=== PATIENT | female | born 1965 | race Hispanic/Latino ===

== ENCOUNTER 2023-01-19 05:01 | Observation (INO) | payer BC ==
[2023-01-14 12:45] LABS: ALBUMIN 4.2 g/dL (3.5-5.0); BILIRUBIN,TOTAL 1.1 mg/dL (0.2-1.0); CREATININE 0.5 mg/dL (0.5-1.5); POTASSIUM 3.2 mmol/L (3.5-5.1); TOTAL PROTEIN, SERUM 8.3 g/dL (6.0-8.3)
[2023-01-14 14:48] VITALS: BP 134/77; PULSE 76; RESP 18
[2023-01-19] VITALS (28 sets, daily range): BP systolic 108–127; BP diastolic 62–79; PULSE 61–93; RESP 14–19; O2SAT 96–97
[~2023-01-19] VITALS: Ht 160 cm; Wt 72.1 kg
[~2023-01-19 05:01] MED LIST: NAPR220T57 PO
[2023-01-19] MEDS ORDERED: 0.9%NACL 100ML 48.45 ML, ROPIVACAINE 0.5% 5MG/ML 30ML 246.25 MG, KETOROLAC TROMETHAMINE... IV PRN ×5 (07:00)
[2023-01-19] MEDS ORDERED: CEFAZOLIN SODIUM 2 GM VIAL ONE ×2 (07:20→19:44)
[2023-01-19] MEDS ORDERED: LACTATED RINGERS 1000ML 1,000 ML IV ONE (07:20)
[2023-01-19] MEDS ORDERED: POTA99TA26 PO (07:27)
[2023-01-19] MEDS ORDERED: TRANEXAMIC ACID 1000MG/10ML ONE (12:37)
[2023-01-19] MEDS ORDERED: GENTAMICIN SULFATE 80 MG/2 ML VIAL ONE (12:37)
[2023-01-19] MEDS ORDERED: CEFAZOLIN SODIUM 1 GM VIAL ONE (12:37)
[2023-01-19] MEDS ORDERED: LIDOCAINE PF 100MG/5ML (2%) SYRINGE 5ML ONE (12:51)
[2023-01-19] MEDS ORDERED: PROPOFOL 10 MG/ML 20ML VIAL IV ONE (12:52)
[2023-01-19] MEDS ORDERED: ROCURONIUM 10MG/1ML SYR 10 MG/ML ML ONE (12:52)
[2023-01-19] MEDS ORDERED: MIDAZOLAM HCL 1 MG/ML 2ML VIAL ONE (12:52)
[2023-01-19] MEDS ORDERED: FENTANYL CITRATE PF 50 MCG/1 ML 5ML AMP IV ONE (12:52)
[2023-01-19] MEDS ORDERED: DEXAMETHASONE SOD PHOSPHATE 10MG/ML 1ML VIAL ONE (13:21)
[2023-01-19] MEDS ORDERED: ONDANSETRON 4MG INJ ONE ×2 (13:21→16:03)
[2023-01-19] MEDS ORDERED: TRANEXAMIC ACID 1000MG/10ML IV ONE (13:35)
[2023-01-19] MEDS ORDERED: GLYCOPYRROLATE 1 MG/5 ML SYRINGE ONE (14:34)
[2023-01-19] MEDS ORDERED: NEOSTIGMINE METHYLSULFATE 1MG/ML IV ONE (14:34)
[2023-01-19] MEDS ORDERED: MEPERIDINE-PF 25 MG/ML SYG ONE (16:03)
[2023-01-19] MEDS ORDERED: CEFAZOLIN SODIUM 2 GM VIAL IVPB SCH (17:00)
[2023-01-19] MEDS ORDERED: DIPHENOXYLATE HCL/ATROPINE 2.5/0.025 MG TAB PO PRN (17:00)
[2023-01-19] MEDS ORDERED: HYDROMORPHONE PCA 10 MG/50 ML 50 ML IV PRN (17:00)
[2023-01-19] MEDS ORDERED: ACETAMINOPHEN 325 MG TAB PO PRN ×3 (17:00)
[2023-01-19] MEDS ORDERED: LACTULOSE 20 GM/30 ML UDCUP PO PRN (17:00)
[2023-01-19] MEDS ORDERED: ONDANSETRON 4MG INJ IVP PRN (17:00)
[2023-01-19] MEDS ORDERED: DiphenhydrAMINE HCL 50 MG/ML VIAL IM PRN (17:00)
[2023-01-19] MEDS ORDERED: BENZOCAINE/MENTH/CETYLPYRD CL 1 EACH LOZENGE MM PRN (17:00)
[2023-01-19] MEDS ORDERED: TRAMADOL HCL 50 MG TABLET PO PRN (17:00)
[2023-01-19] MEDS ORDERED: MAG/ALUM/SIMETH 30 ML UDCUP PO PRN (17:00)
[2023-01-19] MEDS ORDERED: DIPHENHYDRAMINE HCL 25 MG CAPSULE PO PRN ×2 (17:00)
[2023-01-19] MEDS: 0.9%NACL 1000ML 1,000 ML IV SCH (17:29)
[2023-01-19] MEDS: CEFAZOLIN SODIUM 2 GM VIAL IVPB SCH (19:50)
[2023-01-20] MEDS: CEFAZOLIN SODIUM 2 GM VIAL IVPB SCH (02:21)
[2023-01-20] MEDS: 0.9%NACL 1000ML 1,000 ML IV SCH ×2 (02:21→13:00)
[2023-01-20 03:00] VITALS: BP 103/67; PULSE 66; RESP 16
[2023-01-20 04:18] LABS: HEMATOCRIT 25.8 % (36-48); MEAN CORPUSCULAR HEMOGLOBIN 39.5 pg (27.0-33.0); MEAN CORPUSCULAR HGB CONC 39.9 g/dL (32.0-36.0); MEAN CORPUSCULAR VOLUME 98.9 fL (79-99); PLATELET COUNT (AUTO) 185 K/uL (130-400); RED BLOOD CELL COUNT(AUTO) 2.61 MIL/uL (4.00-5.50); WHITE BLOOD COUNT (AUTO) 7.8 K/uL (4.8-10.8)
[2023-01-20 04:22] LABS: CREATININE 0.7 mg/dL (0.5-1.5); POTASSIUM 3.5 mmol/L (3.5-5.1)
[2023-01-20 04:27] LABS: INR 0.97 (0.85-1.15); PROTHROMBIN TIME 11.3 SEC (9.6-11.6)
[2023-01-20 06:24] VITALS: PULSE 76; RESP 18; O2SAT 96
[2023-01-20 08:00] VITALS: BP 113/67; PULSE 79; RESP 18; O2SAT 94
[2023-01-20] MEDS ORDERED: POTASSIUM CHLORIDE 20MEQ/100ML 100 ML IV PRN (09:00)
[2023-01-20] MEDS ORDERED: POTASSIUM CHLORIDE 10% ELIXIR 20 MEQ/15 ML UDCUP PO PRN (09:00)
[2023-01-20] MEDS ORDERED: KCL 20 MEQ ERTAB PO PRN (09:00)
[2023-01-20] MEDS ORDERED: RIVAROXABAN 10 MG TABLET PO SCH (09:00)
[2023-01-20] MEDS ORDERED: KCL 20 MEQ ERTAB PO ONE (09:00)
[2023-01-20 12:00] VITALS: BP 115/55; PULSE 80; RESP 20
== END 2023-01-20 15:30 | disposition home or self-care (01) ==
LOC: DAH 05:01 → DAHIP 05:02 → DAH 05:02 → 4CH 16:30
PROVIDERS: ADMIT Orthopaedic Surgery; ATTEND Orthopaedic Surgery
DX: M17.12 Unilateral primary osteoarthritis, left knee (principal); E11.9 Type 2 diabetes mellitus without complications; I10 Essential (primary) hypertension; Z98.51 Tubal ligation status
CPT/HCPCS: 80053; 36415 ×2; 87641; 27447; 96365; 96366 ×4; 96368; 82948; 81025; 97161; 97012; 97530 ×3; 80048; 85027; 85610; 97116 ×2; G0378 ×21; A4510; A4663; J7120 ×2; A4215 ×2; A4649 ×4; J3010; J0690 ×4; J3490 ×3; J1170; J1100; J2001; J1580; J2250; J2704; J2405 ×2; J2710; J2175; A6223; C1763 ×2; C1776; A5120; A4223; A4222; A4221; A6450; J7030

== ENCOUNTER 2024-08-29 18:03 | Emergency (ER) | payer BC ==
[~2024-08-29] VITALS: Ht 160 cm; Wt 61.7 kg
[~2024-08-29 18:03] MED LIST changes: -NAPR220T57 PO; +POTA99TA26 PO
--- NOTE | 2024-08-29 18:23 | ERN ---
ED Note History of Present Illness Stated Complaint: CHEST PAIN AND ARM PAIN ON LEFT SIDE/ DR MACEDO Chief Complaint: Chest Wall Pain Time Seen by MD: 18:22 Time Seen by Midlevel: 18:24 Dictation: Ms. Lamar is a 58-year-old female with history of hypothyroidism pain presented to the emergency department this evening for evaluation of chest pain. She reports chest pain/pressure radiating to the left arm/ribs x 48 hours. She also is complaining of fatigue, general weakness, congestion, cough, and sore throat. Chest pain persisted and was instructed by her PCP to come to the hospital. 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 She Denies fever, chills, shortness of breath, palpitations, edema, abdominal pain, nausea, vomiting, hematemesis, constipation, diarrhea, melena, hematochezia, dysuria, headache, dizziness, or focal weakness/paresthesia. PCP: [facility] Allergies: Coded Allergies: meloxicam (Unverified Allergy, Unknown, 08/29/24) omeprazole (Unverified Allergy, Unknown, 08/29/24) Emergency Care FINANCIAL AID DIRECTOR: None Home Meds Active Scripts Benzonatate (Tessalon Perles) 100 Mg Cap, 1 CAP PO TID for cough, #12 CAP 0 Refills Prov:CARLOS DUKES NP 08/29/24 Potassium Chloride (Potassium Chloride) 20 Meq Tab.er.prt, 1 TAB PO BID for 3 Days, #6 TAB 0 Refills Prov:CARLOS DUKES NP 08/29/24 Nirmatrelvir/Ritonavir (Paxlovid 300-100 mg Dose Pack) 300 Mg (150 Mg X 2)-100 Mg Tab.ds.pk, 1 EACH PO DAILY for 5 Days, #5 TAB 0 Refills Prov:CARLOS DUKES NP 08/29/24 Reported Medications Potassium Gluconate (Potassium) 595 Mg (99 Mg) Tablet, 99 MG PO DAILY, TAB 01/19/23 Past Medical History Past Medical History: Hypothyroid Surgical History: Other, BTL Surgical History Other: KNEE Social History: Negative, Lives with family History: Not Applicable RN Note Reviewed/Agreed w/PFSH: Yes Review of System Dictation REVIEW OF SYSTEMS: CONSTITUTIONAL: Patient denies fevers, chills, sweats and weight changes. Reports fatigue and general weakness. EYES: Patient denies any visual symptoms. EARS, NOSE, AND THROAT: No difficulties with hearing. Reports nasal congestion and sore throat. CARDIOVASCULAR: Patient denies palpitations, orthopnea and paroxysmal nocturnal dyspnea. Reports 48 hours of left sided chest pain/pressure radiating to left arm/ribs. RESPIRATORY: No dyspnea on exertion, no wheezing. Reports congested cough. GI: No nausea, vomiting, diarrhea, constipation, abdominal pain, hematochezia or melena. : No urinary hesitancy or dribbling. No nocturia or urinary frequency. No abnormal urethral discharge. MUSCULOSKELETAL: No myalgias or arthralgias. NEUROLOGIC: No chronic headaches, no seizures. Patient denies numbness, tingling or weakness. PSYCHIATRIC: Patient denies problems with mood disturbance. No problems with anxiety. ENDOCRINE: No excessive urination or excessive thirst. DERMATOLOGIC: Patient denies any rashes or skin changes. Initial Vital Sign VS Vital Signs Date Time Temp Pulse Resp B/P (MAP) Pulse Ox O2 Delivery O2 Flow Rate FiO2 08/29/24 18:17 98.2 79 16 129/81 96 Room Air 0 08/29/24 19:23 21 Physical Exam Dictation Vital signs: Reviewed. Afebrile Constitutional: No acute distress. Non-toxic appearing. Head/Face: Normocephalic, atraumatic. Eyes: Periorbital areas with no swelling, redness, or edema. Lids and lashes are normal. Conjunctival injection is absent. Sclera anicteric. Pupils equal, round, reactive to light. ENT: Pinnas intact and no signs of trauma or erythema. Ear canals clear and no discharge. TMs no erythema. No nasal discharge or bleeding noted. Oropharynx with no exudate, redness, swelling, masses, exudates, or evidence of obstruction. Uvula midline. Mucous membranes moist. Neck: Trachea midline, no masses palpated, and no cervical lymphadenopathy. No swelling. Supple, full range of motion. Chest/Axilla: No tenderness, no crepitus, no paradoxical movement, no re tractions. Cardiovascular: Regular rate, regular rhythm, no murmur, no gallops. Symmetric pulses. No peripheral edema. Twelve lead EKG reflects a sinus rhythm without ST elevation or depression. Normotensive. Respiratory: Respirations even and unlabored. Lung sounds clear; no wheezes, rales or rhonchi. Room air SpO2 98%. Gastrointestinal: Inspection is normal. No distention is appreciated. Bowel sounds are normal. No mass or organomegaly . There is no tenderness. No rebound. No rigidity. No voluntary or involuntary guarding. No Ray's sign. Neurological: Normal speech, gross motor function intact, gross sensory function intact. No focal weakness/Paresthesia. Musculoskeletal/Extremities: All extremities have full range of motion, no pain or tenderness on palpation. Symmetric pulses. Integumentary: Intact. Skin is normal color, warm and dry. Cap refill less than 2 seconds. Results (Laboratory/Radiology) Laboratory/Radiology Laboratory Tests Test 08/29/24 18:50 08/29/24 19:14 White Blood Count 4.0 K/uL (4.8-10.8) L Red Blood Count 4.45 MIL/uL (4.00-5.50) Hemoglobin 12.5 g/dL (12.0-16.0) Hematocrit 37.0 % (36-48) Mean Corpuscular Volume 83.1 fL (79-99) Mean Corpuscular Hemoglobin 28.1 pg (27.0-33.0) Mean Corpuscular Hemoglobin Concent 33.8 g/dL (32.0-36.0) Red Cell Distribution Width 13.9 % (11.0-15.5) Platelet Count 169 K/uL (130-400) Mean Platelet Volume 9.4 fL (7.5-10.5) Immature Granulocyte % (Auto) 0.5 % (0-1) Neutrophils (%) (Auto) 58.8 % (40.0-77.0) Lymphocytes (%) (Auto) 28.0 % (21.0-51.0) Monocytes (%) (Auto) 11.4 % (3.0-13.0) Eosinophils (%) (Auto) 0.8 % (0.0-8.0) Basophils (%) (Auto) 0.5 % (0.0-5.0) Neutrophils # (Auto) 2.3 K/uL (1.8-7.7) Lymphocytes # (Auto) 1.1 K/uL (1.0-4.8) Monocytes # (Auto) 0.5 K/uL (0.1-1.0) Eosinophils # (Auto) 0.03 K/uL (0.00-0.70) Basophils # (Auto) 0.02 K/uL (0.00-0.20) Absolute Immature Granulocyte (auto 0.02 K/uL (0-1) Nucleated Red Blood Cells 0.0 % (0.0-0.19) Sodium Level 141 mmol/L (136-145) Potassium Level 2.3 mmol/L (3.5-5.1) *L Chloride Level 102 mmol/L (101-111) Carbon Dioxide Level 32 mmol/L (21-32) Blood Urea Nitrogen 10 mg/dL (7-18) Creatinine 0.5 mg/dL (0.5-1.0) Glomerular Filtration Rate Calc 107 mL/min (>90) Random Glucose 92 mg/dL (70-105) Total Calcium 9.1 mg/dL (8.5-10.1) Troponin I High Sensitivity 8 ng/L (4-50) Influenza Type A Antigen Negative For Type A Influenza Type B Antigen Negative For Type B SARS-CoV-2, RNA, NAAT POSITIVE SARS CoV-2 Group A Streptococcus Rapid negative (NEGATIVE) Labs Reviewed?: Yes EKG Comment: EKG Interpretation: Time Reviewed: 1903 Ventricular rate: 72 bpm IA Interval: 159 ms QRS duration: [address] segment elevation or depression. Clinical impression: sinus rhythm EKG Reviewed and interpreted by Dr. Tammy Hardwick X-RAY Comment: PATIENT: ENRIQUE LAMAR MR#: [id number] : 1965 SEX: F AGE: 58 LOCATION: [facility] ORDER 23 STATUS: [facility] REPORT#: [id number] SERVICE 22 REASON: chest pain, cough ORDERING PHYSICIAN: CARLOS DUKES NP PROCEDURE: CXR1VW - CHEST 1VW PORTABLE CHEST RADIOGRAPH INDICATION: chest pain, cough COMPARISON: None FINDINGS: Heart size is normal. The pulmonary vascularity and meseret appear normal. No abnormal pulmonary parenchymal opacity or consolidation identified. Right hemidiaphragm is slightly elevated. No significant pleural effusion noted. No pneumothorax detected. IMPRESSION: No radiographic evidence for any acute cardiopulmonary process. DICTATED BY: HUMAIRA VIRGEN MD DATE: 08/29/241854 ELECTRONICALLY SIGNED BY: HUMAIRA VIRGEN MD DATE: 08/29/241857 ED Course ED Course Orders Procedure Category Date Status Time Influenza Type A & B, LAB 08/29/24 Complete Rapid 18:23 Covid Rna Naat LAB 08/29/24 Complete 18:23 Troponin I High LAB 08/29/24 Complete Sensitivity 18:23 Chest 1vw RAD 08/29/24 Resulted 18:23 Rapid (Group A Strep) LAB 08/29/24 Complete 18:23 Cbc With Differential LAB 08/29/24 Complete 18:23 Basic Metabolic Panel LAB 08/29/24 Complete 18: 12 Lead Ekg Tracing- EKG 08/29/24 Complete Technical 18:29 Potassium Bicarb/Cit PHA 08/29/24 Complete Ac 25meq (K-Lyte Ta 19:30 Current Medications Medications (Trade) Dose Ordered Sig/Vinod Route PRN Reason Start Time Stop Time Status Last Admin Dose Admin Potassium Bicarbonate (K-Lyte Tablet Eff 25 Meq Tablet.eff) 50 meq ONCE ONCE PO 08/29/24 19:30 08/29/24 19:32 DC 08/29/24 19:59 Vital Signs Date Time Temp Pulse Resp B/P (MAP) Pulse Ox O2 Delivery O2 Flow Rate FiO2 08/29/24 20:15 98.2 73 17 121/71 98 Room Air* 0 21 08/29/24 19:23 98.1 78 18 123/78 97 Room Air* 0 21 08/29/24 18:17 98.2 79 16 129/81 96 Room Air 0 Uneventful ED course. Vital signs remained stable; afebrile and normotensive with room air SpO2 96-97%. She continues with occasional cough. Lung sounds are clear. Twelve lead EKG reflects a sinus rhythm without ST elevation or depression. Laboratory findings as noted below. K2.3. Troponin negative. Influenza and strep negative. COVID-19 positive. While in the ED she received dose KCl 50 mEq use. I discussed findings with patient and her significant other and recommended a admission for electrolyte replacement/observation. Patient declined admission stating she would rather rest at home with family. She states she will follow up with her PCP later this week as well as repeat electrolytes. HEART Score Response (Comments) Value History: Low suspicion (0) 0 EKG: Normal 0 Age: 45-65yrs (+1) 1 Risk Factors: 1-2 risk factors (+1) 1 Initial Troponin: Normal limit (0) 0 HEART Score Risk: Low Risk for MACE (1-3) Total 2 Medical Decision Making MDM MDM: Differential diagnosis: Influenza, COVID, ACS Rationale: Tests considered and ordered secondary to shared decision making include: LAB, EKG Previous outside records reviewed: Old ER visits. Risk of complication and/or morbidity or mortality of patient management: None Medications-Per medication reconciliation Need for hospitalization: Patient does not meet criteria for hospitalization. Need for emergency major/minor surgery: No There are no social concerns with this patient. Prescription drug management: KCL, Paxlovid, Tessalon Perles Prescriptions will include symptomatic care Patient's prior external medical records from other ER visits were reviewed by me as indicated. Prior testing and results from previous visits were reviewed. Prior tests were taken into account with medical decision making and resource utilization, independent historian/historians were used to obtain complete medical history. I independently interpreted the test that were performed, results were reviewed by me and considered findings on radiology if ordered. Medical management and examination interpretation discussions were had by me with other qualified healthcare professionals as indicated for the patient's care. DX & DISP Disposition: Discharge Departure Impression: Primary Impression: COVID-19 Additional Impressions: Hypokalemia, Cough Condition: Stable Scripts Benzonatate (Tessalon Perles) 100 Mg Cap 1 CAP PO TID for cough, #12 CAP 0 Refills Prov: CARLOS DUKES CASTING AGENT 08/29/24 Potassium Chloride (Potassium Chloride) 20 Meq Tab.er.prt 1 TAB PO BID for 3 Days, #6 TAB 0 Refills Prov: CARLOS DUKES CASTING AGENT 08/29/24 Nirmatrelvir/Ritonavir (Paxlovid 300-100 mg Dose Pack) 300 Mg (150 Mg X 2)-100 Mg Tab.ds.pk 1 EACH PO DAILY for 5 Days, #5 TAB 0 Refills Prov: CARLOS DUKES CASTING AGENT 08/29/24 Additional Instructions: Rest. You will need to isolate at home until you are fever free and symptoms are resolving. Drink plenty of fluids. Take [id number] Tylenol or ibuprofen as needed for discomfort. Continue with potassium supplementation twice daily for the next three days. May start Paxlovid dose pack. You will need to follow up with your PCP and have potassium level rechecked in the next 2-3 days. Return to the emergency department for any worsening of symptoms or concerns. Referrals: SELF,REFERRAL (PCP) Time of Disposition: 20:18 CARLOS DUKES NP Aug 29, 2024 18:23 GUSTAVO PHILLIPS DO Aug 30, 2024 00:00
--- NOTE | 2024-08-29 18:58 | HMCIMG ---
PORTABLE CHEST RADIOGRAPH INDICATION: chest pain, cough COMPARISON: None FINDINGS: Heart size is normal. The pulmonary vascularity and meseret appear normal. No abnormal pulmonary parenchymal opacity or consolidation identified. Right hemidiaphragm is slightly elevated. No significant pleural effusion noted. No pneumothorax detected. IMPRESSION: No radiographic evidence for any acute cardiopulmonary process.
[2024-08-29 19:06] LABS: BASOPHILS # (AUTO) 0.02 K/uL (0.00-0.20); BASOPHILS % (AUTO) 0.5 % (0.0-5.0); EOSINOPHILS # (AUTO) 0.03 K/uL (0.00-0.70); EOSINOPHILS % (AUTO) 0.8 % (0.0-8.0); IMMATURE GRANULOCYTE ABSOLUTE 0.02 K/uL (0-1); LYMPHOCYTES # (AUTO) 1.1 K/uL (1.0-4.8); MEAN CORPUSCULAR HEMOGLOBIN 28.1 pg (27.0-33.0); MEAN CORPUSCULAR HGB CONC 33.8 g/dL (32.0-36.0); MEAN CORPUSCULAR VOLUME 83.1 fL (79-99); MONOCYTES # (AUTO) 0.5 K/uL (0.1-1.0); MONOCYTES % (AUTO) 11.4 % (3.0-13.0); NEUTROPHILS # (AUTO) 2.3 K/uL (1.8-7.7); NEUTROPHILS % (AUTO) 58.8 % (40.0-77.0); PLATELET COUNT (AUTO) 169 K/uL (130-400); RED BLOOD CELL COUNT(AUTO) 4.45 MIL/uL (4.00-5.50); RED CELL DISTRIBUTION WIDTH 13.9 % (11.0-15.5)
--- NOTE | 2024-08-29 19:08 | EKG ---
[facility] Test Date: 2024-08-29 Test Time: 19:04:49 Pat Name: ENRIQUE NUÑEZ Department: ED Room: Gender: F Manager Work: [employer] : 1965 Requested By: CARLOS DUKES Order Number: [id number] Reading MD: Yamil Leija Measurements Intervals [place] Rate: 72 P: 57 MD: 159 QRS: -21 QRSD: 104 T: 48 QT: 441 QTc: 482 Interpretive Statements Sinus rhythm Nonspecific STT abnormality No previous ECG available for comparison Electronically Signed On 08-30-2024 18:11:13 CDT by Yamil Leija Please click the below link to view image of tracing.
[2024-08-29 19:18] LABS: CREATININE 0.5 mg/dL (0.5-1.0)
--- NOTE | 2024-08-29 19:18 | NUR ---
PT PLACED INTO ER 11 FROM LOBBY AT THIS TIME
[2024-08-29 19:20] LABS: POTASSIUM 2.3 mmol/L (3.5-5.1)
[2024-08-29] MEDS: PoTASSium BIcarbonate/CIT AC 25 MEQ TABLET.EFF PO ONE (19:59)
[2024-08-29 20:02] LABS: RAPID GROUP A STREP negative (NEGATIVE)
[2024-08-29 20:06] LABS: SARS-CoV-2, RNA, NAAT POSITIVE SARS CoV-2 (NEGATIVE)
[2024-08-29 20:11] LABS: INFLUENZA TYPE A Negative For Type A (NEGATIVE); INFLUENZA TYPE B Negative For Type B (NEGATIVE)
[2024-08-29 20:15] VITALS: BP 121/71; PULSE 73; RESP 17; TEMP 98.3; O2SAT 98
[2024-08-29] MEDS ORDERED: POTA-202 PO (20:17)
[2024-08-29] MEDS ORDERED: NIRM1TAB9 PO (20:17)
[2024-08-29] MEDS ORDERED: BENZ-39 PO (20:19)
== END 2024-08-29 20:37 | disposition home or self-care (01) ==
LOC: EDH 18:03
DX: U07.1 COVID-19 (principal); E87.6 Hypokalemia; R05.9 Cough, unspecified; E03.9 Hypothyroidism, unspecified; Z79.899 Other long term (current) drug therapy; Z88.8 Allergy status to other drugs, medicaments and biological substances; Z98.51 Tubal ligation status
CPT/HCPCS: 36415; 71045; 80048; 84484; 85025; 87635; 87804; 87880; 93005; 99284

== ENCOUNTER 2024-10-30 00:44 | Inpatient (IN) | payer BC ==
[~2024-10-30] VITALS: Ht 160 cm; Wt 61.7 kg
[2024-10-30] VITALS (13 sets, daily range): BP systolic 91–117; BP diastolic 55–71; PULSE 69–83; RESP 13–21; TEMP 97.8–99.8; O2SAT 96–100
[~2024-10-30 00:44] MED LIST changes: +BENZ-39 PO; +NIRM1TAB12 PO; +POTA-202 PO
--- NOTE | 2024-10-30 00:59 | ERN ---
ED Note History of Present Illness Stated Complaint: FEVER,CHILLS,COUGH,WEAK,DIZZY ONSET 1800 Chief Complaint: Sepsis Time Seen by MD: 00:49 Dictation: This is a 59-year-old female who presented to the emergency room complaining of fever chills all those that started around 6:00 p.m. today she also reports cough with chest congestion she has been feeling extremely weak with dizziness. No history of any recent travel or new pets at home. Patient was diagnosed with COVID August 2024 patient stated that for the past 1 year she has had profuse diarrhea with blood in the stool. She has had extensive GI evaluation including colonoscopies without any clear diagnosis or etiology known. She took Tylenol at 6:00 p.m.. Temperature 102 pulse 106 respirations 19 blood pressure 130/75 with a pulse oximetry of 100% on room air Her chronic medical problem includes hypothyroidism, chronic diarrhea, knee surgeries Allergies: Coded Allergies: meloxicam (Unverified Allergy, Unknown, 08/29/24) omeprazole (Unverified Allergy, Unknown, 08/29/24) Home Meds Active Scripts Benzonatate (Tessalon Perles) 100 Mg Cap, 1 CAP PO TID for cough, #12 CAP 0 Refills Prov:CARLOS DUKES NP 08/29/24 Potassium Chloride (Potassium Chloride) 20 Meq Tab.er.prt, 1 TAB PO BID for 3 Days, #6 TAB 0 Refills Prov:CARLOS DUKES [employer]ACHINE [employer] 08/29/24 Nirmatrelvir/Ritonavir (Paxlovid 300-100 mg Dose Pack) 300 Mg (150 Mg X 2)-100 Mg Tab.ds.pk, 1 EACH PO DAILY for 5 Days, #5 TAB 0 Refills Prov:CARLOS DUKES NP 08/29/24 Reported Medications Potassium Gluconate (Potassium) 595 Mg (99 Mg) Tablet, 99 MG PO DAILY, TAB 01/19/23 Past Medical History Past Medical History: Hypothyroid Surgical History: Other, BTL Surgical History Other: KNEE Family History: Negative Social History: Negative, Lives with family History: Not Applicable RN Note Reviewed/Agreed w/PFSH: Yes Review of System Dictation Constitutional: Positive for fever,chills, and weight loss Eyes: Negative for injury, pain,redness, and discharge ENT: Negative for injury,pain or swelling Cardiovascular: Negative for chest pain, palpitations, and edema Respiratory: Negative for shortness of breath, positive cough, and wheezing, Abdomen/GI: Negative for abdominal pain, nausea, vomiting, and constipation p ositive for chronic diarrhea, Back: Negative for injury and pain : Negative for injury, bleeding and discharge MS/Extremity: Negative for injury and deformity Skin: Negative for rash, and discoloration Neuro: Negative for headache, weakness, numbness, tingling, and seizure Psych: Negative for suicide ideation, homicidal ideation, and hallucinations Initial Vital Sign VS Vital Signs Date Time Temp Pulse Resp B/P (MAP) Pulse Ox O2 Delivery O2 Flow Rate FiO2 10/30/24 00:47 102.0 106 19 130/75 100 Room Air 0 10/30/24 00:55 21 Physical Exam Dictation General: awake, alert, NAD Head/Face: Normocephalic, atraumatic Eyes: PERRL, EOMI, vision at baseline ENT: oral cavity clear, TMs clear, no signs of infection Neck: Trachea midline, supple, no nuchal rigidity Cardiovascular: RRR, normal S1/S2, No MRGs, no JVD Respiratory: CTAB, no respiratory distress, No rales or wheezes Abdomen: Soft, non-tender, non-distended, normal bowel sounds, no guarding or rebound. Skin: Warm, dry, normal turgor, no rash MS/Extremity: Pulses equal, no cyanosis, neurovascular intact, FROM Neuro: COAx4, GCS 15, strength 5/5, CN 2-12 intact, normal cerebellar exam, Psych: Normal behavior, mood, and affect normal Extremities-trace edema without any palpable cords, Homans sign is negative Results (Laboratory/Radiology) Laboratory/Radiology Laboratory Tests Test 10/30/24 00:54 10/30/24 01:58 White Blood Count 8.2 K/uL (4.8-10.8) Red Blood Count 4.20 MIL/uL (4.00-5.50) Hemoglobin 12.1 g/dL (12.0-16.0) Hematocrit 35.5 % (36-48) L Mean Corpuscular Volume 84.5 fL (79-99) Mean Corpuscular Hemoglobin 28.8 pg (27.0-33.0) Mean Corpuscular Hemoglobin Concent 34.1 g/dL (32.0-36.0) Red Cell Distribution Width 14.5 % (11.0-15.5) Platelet Count 147 K/uL (130-400) Mean Platelet Volume 9.7 fL (7.5-10.5) Immature Granulocyte % (Auto) 0.2 % (0-1) Neutrophils (%) (Auto) 88.5 % (40.0-77.0) H Lymphocytes (%) (Auto) 3.8 % (21.0-51.0) L Monocytes (%) (Auto) 7.1 % (3.0-13.0) Eosinophils (%) (Auto) 0.0 % (0.0-8.0) Basophils (%) (Auto) 0.4 % (0.0-5.0) Neutrophils # (Auto) 7.2 K/uL (1.8-7.7) Lymphocytes # (Auto) 0.3 K/uL (1.0-4.8) L Monocytes # (Auto) 0.6 K/uL (0.1-1.0) Eosinophils # (Auto) 0.00 K/uL (0.00-0.70) Basophils # (Auto) 0.03 K/uL (0.00-0.20) Absolute Immature Granulocyte (auto 0.02 K/uL (0-1) Nucleated Red Blood Cells 0.0 % (0.0-0.19) White Cell Morphology Comment See comments Sodium Level 140 mmol/L (136-145) Potassium Level 1.9 mmol/L (3.5-5.1) *L Chloride Level 100 mmol/L (101-111) L Carbon Dioxide Level 27 mmol/L (21-32) Blood Urea Nitrogen 8 mg/dL (7-18) Creatinine 0.5 mg/dL (0.5-1.0) Glomerular Filtration Rate Calc 107 mL/min (>90) Random Glucose 105 mg/dL (70-105) Lactic Acid Level 2.1 mmol/L (0.8-2.5) Total Calcium 8.8 mg/dL (8.5-10.1) Total Creatine Kinase 261 U/L (21-232) H Influenza Type A Antigen Negative For Type A Influenza Type B Antigen Negative For Type B SARS-CoV-2 Antigen (Rapid) PRESUMPTIVE NEGATIVE Group A Streptococcus Rapid negative (NEGATIVE) Urine Color LIGHT-YELLOW (YELLOW) Urine Appearance CLEAR (CLEAR) Urine pH 5.0 (5.0-8.0) Urine Specific [place] 1.007 (1.001-1.031) Urine Protein NEGATIVE mg/dL (NEGATIVE) Urine Glucose (UA) NEGATIVE mg/dL (NEGATIVE) Urine Ketones NEGATIVE mg/dL (NEGATIVE) Urine Occult Blood NEGATIVE (NEGATIVE) Urine Nitrate NEGATIVE (NEGATIVE) Urine Bilirubin NEGATIVE mg/dL (NEGATIVE) Urine Urobilinogen 0.2 mg/dL (0.2-1.0) Urine Leukocyte Esterase 75 Uriel/uL (NEGATIVE) H Urine RBC 2-5 /HPF (0-1) H Urine WBC 11-25 /HPF (0-1) H Urine Squamous Epithelial Cells RARE /HPF (0-2) Urine Bacteria RARE /HPF (None Seen) Labs Reviewed?: Yes EKG Comment: Twelve lead EKG done on 10/30/2024 at 12:48 a.m. showed a heart rate of 103, MN interval 139, QRS 94 Impression normal sinus rhythm with nonspecific STT wave changes throughout noted. Q-waves in the septal leads. EKG rhythm strip shows normal sinus rhythm with nonspecific STT wave changes. Interpreted by ER MD Dr. Rubio ED Course ED Course Orders Procedure Category Date Status Time Cbc With Differential LAB 10/30/24 Complete 00:50 Urinalysis Profile LAB 10/30/24 Complete 00:50 Acetaminophen 325 Tab PHA 10/30/24 Complete (Tylenol 325mg Tab 01:00 Creatine Kinase, Total LAB 10/30/24 Complete 00:50 Chest 1vw RAD 10/30/24 Resulted 00:50 Basic Metabolic Panel LAB 10/30/24 Complete 00:50 Lactic Acid LAB 10/30/24 Complete 00:50 Influenza Type A & B, LAB 10/30/24 Complete Rapid 00:50 Rapid (Group A Strep) LAB 10/30/24 Complete 00:50 Covid19 (Sars Antigen LAB 10/30/24 Complete Rapid) 00:50 Blood Cult JAZMYNE 10/30/24 In Process 00:55 0.9%Nacl 1000ml (Ns PHA 10/30/24 Complete 1000ml) 01:00 12 Lead Ekg Tracing- EKG 10/30/24 Logged Technical 01:16 Potassium Chloride PHA 10/30/24 Complete 20meq/10ml (Kcl 20meq 02:00 Potassium Bicarb/Cit PHA 10/30/24 Complete Ac 25meq (K-Lyte Ta 02:00 Potassium Chloride PHA 10/30/24 In Process 10meq/100ml ([place] 02:00 Culture Urine JAZMYNE 10/30/24 In Process 02:18 Ct Abdomen/Pelvis CT 10/30/24 Logged W/Contrast 02:51 Stool Panel Gi By Pcr LAB 10/30/24 Logged 02:51 Fecal Wbc LAB 10/30/24 Logged (Lactoferrin) 02:51 Stool H. Pylori LAB 10/30/24 Logged Antigen 02:51 Ova And Parasite JAZMYNE 10/30/24 Logged 02:51 Occult Blood Stool LAB 10/30/24 Logged Single Only 02:51 Iohexol (Omnipaque) PHA 10/30/24 Complete 03:21 Zosyn 3.375gm+Ns 50ml PHA 10/30/24 In Process (Zosyn 3.375gm+Ns 04:00 Potassium LAB 10/30/24 Logged 03:31 Current Medications Medications (Trade) Dose Ordered Sig/Vinod Route PRN Reason Start Time Stop Time Status Last Admin Dose Admin Acetaminophen (TYLenol 325MG TAB) 650 mg ONCE ONCE PO 10/30/24 01:00 10/30/24 01:01 DC 10/30/24 00:58 Iohexol (Omnipaque) 75 ml STK-MED ONCE IV 10/30/24 03:21 10/30/24 03:21 DC Piperacillin Sod/ Tazobactam Sod (Zosyn 3.375gm+NS 50ml) 3.375 gm ONCE ONCE IV 10/30/24 04:00 10/30/24 04:01 Potassium Bicarbonate (K-Lyte Tablet Eff 25 Meq Tablet.eff) 50 meq ONCE ONCE PO 10/30/24 02:00 10/30/24 02:01 DC 10/30/24 01:58 Potassium Chloride 10 meq/ Sodium Chloride 50 ml @ 50 mls/hr PROTOCOL IV 10/30/24 02:00 10/30/24 01:55 DC Potassium Chloride 100 ml @ 100 mls/hr AD PRN IV POTASSIUM PROTOCOL 10/30/24 02:00 11/29/24 01:59 Sodium Chloride 1,000 ml @ 0 mls/hr ONCE ONCE IV 10/30/24 01:00 10/30/24 01:01 DC 10/30/24 01:02 Vital Signs Date Time Temp Pulse Resp B/P (MAP) Pulse Ox O2 Delivery O2 Flow Rate FiO2 10/30/24 03:33 86 16 94/60 95 Room Air* 0 10/30/24 02:12 100.6 98 23 107/61 95 Room Air* 0 10/30/24 00:58 102.0 10/30/24 00:55 102.0 106 22 123/74 94 Room Air* 0 10/30/24 00:47 102.0 106 19 130/75 100 Room Air 0 We will perform diagnostic labs, advanced imaging and administer medications according to the patient's complaint. Once the results are available, will review and personally interpreted the labs to rule out any acute life- threatening emergency the trach require immediate intervention and treatment. I will then re-evaluate the patient after treatment and diagnostic exams have return to determine whether the patient requires any further testing, can safely be discharged home or need further admission to hospital for additional treatment and evaluation. Labs reviewed CBC is with a normal limits. Lactic acid is 2.1 total CK 261. Swabs for flu COVID and strep are all negative. BNP 7 shows a potassium of 1.9 glucose 105 chest x-ray shows chronically elevated right hemidiaphragm but no focal infiltrate. 2:55 a.m. source of fever is unclear we will pursue CT scan of the abdomen and pelvis in view of ongoing diarrhea for possibility of intra-abdominal source of infection. 3:45 a.m. repeat potassium requested results are pending pain CT scan of the abdomen and pelvis is also pending at this time 3:50 a.m. patient accepted by Yeyo Garcia mid-level provider for hospitalist group for further admission and management. If the repeat potassium is over 2, patient could go to step-down unit Medical Decision Making MDM Differential diagnosis: Electrolyte abnormalities, viral syndrome, intra- abdominal infection, influenza, COVID, streptococcal pharyngitis Rationale: Tests considered and ordered secondary to shared decision making include: labs, ECG and radiology Previous outside records reviewed: Old ER visits. Risk of complication and/or morbidity or mortality of patient management: None Medications-Per medication reconciliation Need for hospitalization: Patient does meet criteria for hospitalization. Need for emergency major/minor surgery: No There are no social concerns with this patient. Prescription drug management Prescriptions will include symptomatic care Patient's prior external medical records from other ER visits were reviewed by me as indicated. Prior testing and results from previous visits were reviewed. Prior tests were taken into account with medical decision making and resource utilization, independent historian/historians were used to obtain complete medical history. I independently interpreted the test that were performed, results were reviewed by me and considered findings on radiology if ordered. Medical management and examination interpretation discussions were had by me with other qualified healthcare professionals as indicated for the patient's care. Problem List Problem List: (1) Sepsis (2) UTI (urinary tract infection) (3) Chronic diarrhea (4) Hypokalemia (5) Lactic acidosis Critical Care Note Critical Time: 45 minutes Comment(s) Life-threatening illness; sepsis likely related to UTI or chronic diarrhea, lactic acidosis, life-threatening hypokalemia Risk of morbidity mortality-high Complexity of medical decision making-high (X) high probability of sudden clinically significant deterioration in the patient's condition required the highest level of my preparedness to intervene urgently. I provided critical care services requiring my direct and personal management as noted below; (x) chart data review (x) reviewing nurse's notes and/charts (x) documentation time (x) consultation collaboration on findings and therapy options (x) medication orders and management (x) re-evaluations (x) care, transfer of care, and discharge plans (x) ordering and interpreting studies (x) ordering and reviewing labs (x) obtaining necessary history from family, EMS, penitentiary, private MD, surrogate decision makers because patient was unable to give history due to limitations in the mental status (x) aggregate critical care time was ( ) minutes. This includes only time during which I was engaged in work directly related to the patient's care as described above whether at the bedside or elsewhere in the ER while the patient was critical. My time did not include minutes spent treating any other patients simultaneously or on activities that did not directly contribute to the patient's treatment. It did not include time spent performing other reported procedures or services of residents if any. Puja LAMASCP DX & DISP Disposition: Inpatient Decision to Admit Time: 03:34 Departure Impression: Primary Impression: Sepsis Additional Impressions: UTI (urinary tract infection), Chronic diarrhea, Hypokalemia, Lactic acidosis Condition: Stable Additional Instructions: Patient was informed of all the diagnostic labs and procedures conducted in the emergency room today and demonstrated understanding of the results. I personally reviewed and interpreted all the diagnostic exams performed in the ER today. The patient will be admitted to the hospital for further treatment and evaluation. Disposition-admit to facility Condition-stable/guarded Course-uncertain at this time Pain status-decreased Assessment-exam unchanged Admission Certification- I certify that the patients status is appropriate and is based on my best clinical judgment and the patient's condition as documented in the medical records Referrals: SELF,REFERRAL (PCP) PUJA RUBIO MD Oct 30, 2024 00:59
[2024-10-30] MEDS: 0.9%NACL 1000ML 1,000 ML IV ONE (01:02)
[2024-10-30 01:05] LABS: IMMATURE GRANULOCYTE ABSOLUTE 0.02 K/uL (0-1); NUCLEATED RED BLOOD CELLS 0.0 % (0.0-0.19); PLATELET COUNT (AUTO) 147 K/uL (130-400); RED BLOOD CELL COUNT(AUTO) 4.20 MIL/uL (4.00-5.50); RED CELL DISTRIBUTION WIDTH 14.5 % (11.0-15.5); WHITE BLOOD COUNT (AUTO) 8.2 K/uL (4.8-10.8)
[2024-10-30 01:12] LABS: RAPID GROUP A STREP negative (NEGATIVE)
[2024-10-30 01:23] LABS: COVID19 (SARS ANTIGEN RAPID) PRESUMPTIVE NEGATIVE (NEGATIVE); INFLUENZA TYPE A Negative For Type A (NEGATIVE); INFLUENZA TYPE B Negative For Type B (NEGATIVE)
[2024-10-30 01:37] LABS: CREATINE KINASE, TOTAL 261.0 U/L (21-232); CREATININE 0.5 mg/dL (0.5-1.0); GLOMERULAR FILTR. RATE CALC 107.0 mL/min (>90); GLUCOSE,RANDOM 105.0 mg/dL (70-105); SODIUM SERUM 140.0 mmol/L (136-145); UREA NITROGEN, BLOOD 8.0 mg/dL (7-18)
[2024-10-30 02:10] LABS: APPEARANCE,URINE CLEAR (CLEAR); GLUCOSE, URINE (UA) NEGATIVE (NEGATIVE); LEUKOCYTE ESTERASE ,URINE 75 Leu/uL (NEGATIVE); NITRATE,URINE NEGATIVE (NEGATIVE); OCCULT BLOOD,URINE NEGATIVE (NEGATIVE)
[2024-10-30 02:18] LABS: ADD UA MICROSCOPIC YES
[2024-10-30 02:19] LABS: SQUAMOUS EPITHELIAL CELL,UR RARE /HPF (0-2)
--- NOTE | 2024-10-30 02:27 | HMCIMG ---
EXAM: CR Chest, 1 view. CLINICAL HISTORY: Sepsis. COMPARISON: Prior chest radiograph dated 30 August 2024. FINDINGS: Elevated right hemidiaphragm consistent with right diaphragmatic eventration. The lungs show no infiltrate or other acute findings. No pleural effusion or pneumothorax. The cardiomediastinal silhouette is within normal limits. No acute osseous abnormality. 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 No acute cardiopulmonary pathology is evident. Compared to the prior study, there is no significant interval change. /[place]
[2024-10-30] MEDS ORDERED: IOHEXOL-350 75 ML VIAL IV ONE (03:21)
--- NOTE | 2024-10-30 03:59 | HP ---
History of Present Illness Reason for Visit: Palpitations History of Present Illness Ms. Lamar is a 59-year-old female that was seen and examined today on 10/30/2024. Patient is a good historian of personal health Patient reports that she came to the emergency department with a chief complaint of palpitations. Onset was two months ago. Symptoms were worse yesterday on 10/28/2024 at 7:00 p.m.. Location is midsternal. Duration is on and off. Character is described as pulsing. There was no alleviating factors. Symptoms are aggravated with physical activity. Patient reports associated fever and diarrhea. Today in the emergency department potassium 1.9, urinalysis positive for leukocyte esterase and WBCs 11-25 for five powered microscopy field. Additionally patient presented with a temperature of 102.0, heart rate 106 beats per minute, respirations 22 triggering clinical sepsis criteria. Past Medical History Patient History: Diabetes mellitus MOTHER, ADDITIONAL PAST MEDICAL HISTORY: [Denies] SOCIAL HISTORY: [Negative for smoking, alcohol use, drug use. Patient lives with the , Darren Lamar. Patient is typically independent of all her ADLs. Patient denies difficulty paying her bills.] SURGICAL HISTORY: [Bilateral total knee replacement, BTL, lithotripsy] Review of Systems General: No Fever, No Chills, No Night Sweats, No Fatigue, No Malaise, No Appetite, No Other HEENT: No Head Aches, No Visual Changes, No Eye Pain, No Ear Pain, No Dysphasia, No Sinus Congestion, No Post Nasal Drip, No Sore Throat, No Other Pulmonary: No Dyspnea, No Cough, No Pleuritic Chest Pain, No Other Cardiovascular: Palpitations; No: Chest Pain, Orthopnea, Paroxysmal Noc. Dyspnea, Edema, Lt Headedness, Other Gastrointestinal: Diarrhea; No: Nausea, Vomiting, Abdominal Pain, Constipation, Melena, Hematochezia, Other Genitourinary: No Dysuria, No Frequency, No Incontinence, No Hematuria, No Retention, No Other Musculoskeletal: No: other, neck pain, shoulder pain, arm pain, back pain, hand pain, leg pain, foot pain Skin: No Urticaria, No Rash, No Other Neurological: No: Weakness, Numbness, Incoordination, Change in speech, Confusion, Seizures, Other Allergies: Coded Allergies: meloxicam (Unverified Allergy, Unknown, 08/29/24) omeprazole (Unverified Allergy, Unknown, 08/29/24) Scheduled Benzonatate (Tessalon Perles), 1 CAP PO TID Nirmatrelvir/Ritonavir (Paxlovid 300-100 mg Dose Pack), 1 EACH PO DAILY Potassium Chloride (Potassium Chloride), 1 TAB PO BID Potassium Gluconate (Potassium), 99 MG PO DAILY, (Reported) Exam Vital Signs Vital Signs Date Time Temp Pulse Resp B/P (MAP) Pulse Ox O2 Delivery O2 Flow Rate FiO2 10/30/24 03:33 86 16 94/60 95 Room Air* 0 21 10/30/24 02:12 100.6 General Appearance: Alert, Oriented X3, Cooperative, No acute distress HEENT: Atraumatic, EOMI, Mucous membr. moist/pink Respiratory: Clear to auscultation, Normal air movement, NL respiratory effort Cardiovascular: Regular rate, Regular rhythm, Normal S1, Normal S2 Abdominal: Normal bowel sounds, Soft, No tenderness Extremities: No edema Skin: No significant lesion Neuro: Normal speech, Strength at 5/5 X4 ext, Sensation intact, Cranial nerves 3-12 NL Psych/Mental Status: Mental status NL, Mood NL, Thoughts/Content NL Assessment/Plan ASSESSMENT: [ Life-threatening hypokalemia, POA Hyperlactatemia, POA Sepsis, POA Urinary tract infection, POA PLAN: [ Admit patient to intensive care unit as inpatient status. Place patient on telemetry monitoring. Hypokalemia: Patient will be followed by critical care service. Replace potassium per hospital protocol Check potassium every 6 hours x3 sets. Sepsis, hyperlactatemia, UTI: Start empiric antibiotic therapy with Zosyn. Fluid resuscitation lactated Ringer's 30 mL/kg Check blood culture, follow up with the results Check urine culture, follow up with the results Check stool for H pylori, stool panel GI PCR, stool for fecal WBCs, stool for occult blood testing, stool for ova and parasites. 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 No infiltrates or consolidation. GI prophylaxis, famotidine DVT prophylaxis, Lovenox Critical Care Time: I spent ___51___ minutes of critical care time with the patient. I reviewed lab work, change the patient's medication, and coordinated protocol in the event of tachycardia or desaturation. The patient status remains unchanged ADVANCED CARE PLANNING 1. Which of the following were discussed? Hospice Care - Yes Therapeutic options - yes Advance Directives - Yes - patient states that she does not have any advance directives in place at this time, however has been, Darren can make decisions for her if she becomes unable. Other discussions - patient wishes to remain a full code at this time 2. Discussed with who? Patient 3. Voluntary nature of this service was explained to the patient? Yes 4. Amount of time spent - ___16 minutes____ 5. Reviewed by Physician? (if this service was performed by NPP) Yes This document was generated in part using voice recognition software, occasional wrong word or sound alike substitutions may have occurred due to the inherent limitations of voice recognition software. Read the chart carefully and recognize using context, where the substitutions have occurred. Although every effort was made to edit the content, supervisor fertilizer and typing errors may occur ATTESTATION BY PHYSICIAN I have seen and examined the patient. I reviewed the documentation, medical decision making, and treatment plan as noted by the mid-level provider above. I agree with the findings and plan of care. MILAGROS FERNÁNDEZ [facility] Oct 30, 2024 03:59
[2024-10-30] MEDS: ZOSYN 3.375GM +NS 50ML IV ONE (04:11)
[2024-10-30] MEDS: LACTATED RINGERS 1000ML 1,572 ML IV ONE (04:11)
--- NOTE | 2024-10-30 04:33 | NUR ---
CRITICAL CARE CONSULT: AGUILAR INPUT OUTPUT CLERK CALLED FOR CRITICAL CARE, UPDATED INPUT OUTPUT CLERK ON PT'S STATUS. PER INPUT OUTPUT CLERK, GIVE POTASSIUM 10MEQ IV X2 BAGS AND REDRAW POTASSIUM LEVELS.
--- NOTE | 2024-10-30 04:45 | NUR ---
HANDOFF REPORT GIVEN TO RADHA HENRY. PT GOING TO ROOM 209
--- NOTE | 2024-10-30 04:45 | HMCIMG ---
EXAM: CT Abdomen and Pelvis with IV contrast CLINICAL HISTORY: Chronic diarrhea. TECHNIQUE: Thin collimated axial CT images of the abdomen and pelvis were obtained, with sagittal and coronal reformatted images also submitted. A CT scan is done according to ALARA (As Low As Reasonably Achievable). CONTRAST: Contrast information is not available. COMPARISON: None. FINDINGS: Unremarkable visualized lung parenchyma. 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 Mild heterogeneous coarse attenuation of the liver, probably changes of liver parenchymal disease. Borderline splenomegaly. Prominent dilated lienorenal collaterals ending into the left renal vein. Post cholecystectomy status. No obvious focal lesion in the adrenal glands, pancreas, or the kidneys. No focal abnormality within the liver, gallbladder, pancreas, spleen, adrenals, or kidneys. Nondilated fluid-filled small and large bowel loops with mild diffuse mucosal thickening, concerning acute enterocolitis. 0.6 cm enhancing focus around the anal region, could be hemorrhoid. Mild hiatus hernia. No features of bowel obstruction or ileus. The appendix is normal. There is no abnormality within the urinary bladder. Unremarkable reproductive organs. Abdominal and pelvic vessels are patent. Minimal atherosclerotic calcification of the infrarenal aorta and bilateral common iliac arteries. No lymphadenopathy. No free fluid. There is no acute osseous abnormality. Mild degenerative changes in the sacroiliac, superolateral joint, and multilevel degenerative facet arthropathy. IMPRESSIONS: Mild acute enterocolitis. Questionable mild hemorrhoids. Mild hiatus hernia. 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 Mild heterogeneous coarse attenuation of the liver, probably changes of liver parenchymal disease. Borderline splenomegaly. Prominent dilated lienorenal collaterals ending into the left renal vein. No focal lesion in the pancreas or features of pancreatitis. /[place]
[2024-10-30 05:24] LABS: CREATININE 0.5 mg/dL (0.5-1.0); GLOMERULAR FILTR. RATE CALC 107.0 mL/min (>90); GLUCOSE,RANDOM 112.0 mg/dL (70-105); SODIUM SERUM 145.0 mmol/L (136-145); UREA NITROGEN, BLOOD 6.0 mg/dL (7-18)
[2024-10-30 05:32] LABS: ASPARTATE AMINOTRANSFERASE 62.0 U/L (10-37); TOTAL PROTEIN, SERUM 6.2 g/dL (6.0-8.3)
[2024-10-30] MEDS: PoTASSium chl 10% ELIXIR 20MEQ 20 MEQ/15 ML UDCUP PO PRN (05:42)
[2024-10-30] MEDS: NS-20 MEQ KCL 1000ML 1,000 ML IV SCH ×2 (05:42→17:09)
[2024-10-30] MEDS: LACTATED RINGERS 1000ML 1,000 ML IV SCH (05:43)
[2024-10-30] MEDS ORDERED: LEVO100T4 PO (06:13)
[2024-10-30 07:48] LABS: PHOSPHORUS 2.6 mg/dL (2.5-4.9)
[2024-10-30] MEDS: FAMOTIDINE 20MG TAB PO SCH (07:55)
[2024-10-30] MEDS: MAGNESIUM 2GM PREMIX 50ML 50 ML IV PRN (07:56)
[2024-10-30] MEDS: ENOXAPARIN SODIUM 40 MG/0.4 ML SYRINGE SQ SCH (07:56)
[2024-10-30 07:59] LABS: CREATININE,URINE RANDOM 30.6 mg/dL (30-135)
--- NOTE | 2024-10-30 10:03 | EKG ---
[facility] Test Date: 2024-10-30 Test Time: 00:48:07 Pat Name: ENRIQUE NUÑEZ Department: [facility] Room: 209 1 Gender: F Osteologist: [id number] : 1965 Requested By: BLAIR FAUST Order Number: [id number] Reading MD: Aris Carcamo Measurements Intervals [place] Rate: 103 P: 54 AK: 139 QRS: -13 QRSD: 94 T: 54 QT: 0 QTc: 0 Interpretive Statements Sinus tachycardia Anteroseptal infarct, age indeterminate Compared to ECG 08/29/2024 19:04:49 Myocardial infarct finding now present Sinus rhythm no longer present Electronically Signed On 10-30-2024 11:40:00 CDT by Aris Carcamo Please click the below link to view image of tracing.
[2024-10-30 10:33] LABS: IMMATURE GRANULOCYTE ABSOLUTE 0.03 K/uL (0-1); NUCLEATED RED BLOOD CELLS 0.0 % (0.0-0.19); PLATELET COUNT (AUTO) 141 K/uL (130-400); RED BLOOD CELL COUNT(AUTO) 3.82 MIL/uL (4.00-5.50); RED CELL DISTRIBUTION WIDTH 14.6 % (11.0-15.5); WHITE BLOOD COUNT (AUTO) 7.4 K/uL (4.8-10.8)
[2024-10-30 10:46] LABS: ASPARTATE AMINOTRANSFERASE 52.0 U/L (10-37); CREATININE 0.4 mg/dL (0.5-1.0); GLOMERULAR FILTR. RATE CALC 113.0 mL/min (>90); GLUCOSE,RANDOM 101.0 mg/dL (70-105); SODIUM SERUM 144.0 mmol/L (136-145); TOTAL PROTEIN, SERUM 7.0 g/dL (6.0-8.3); UREA NITROGEN, BLOOD 5.0 mg/dL (7-18)
--- NOTE | 2024-10-30 11:01 | EKG ---
[facility] Test Date: 2024-10-30 Test Time: 10:51:28 Pat Name: ENRIQUE NUÑEZ Department: [facility] Room: 209 1 Gender: F Blood Typer: alexandra : 1965 Requested By: ARIS LAM Order Number: [id number] Reading MD: Aris Carcamo Measurements Intervals Constantia Rate: 78 P: 45 MN: 158 QRS: 23 QRSD: 97 T: 45 QT: 422 QTc: 483 Interpretive Statements Sinus rhythm Anteroseptal infarct, age indeterminate Compared to ECG 10/30/2024 00:48:07 Sinus tachycardia no longer present Myocardial infarct finding still present Electronically Signed On 10-30-2024 11:42:11 CDT by Aris Carcamo Please click the below link to view image of tracing.
[2024-10-30] MEDS: ZOSYN 3.375GM +NS 50ML IV SCH (11:07)
[2024-10-30] MEDS: PoTASSium chloRIDE 20MEQ ER 20 MEQ ERTAB PO PRN (11:08)
--- NOTE | 2024-10-30 12:38 | CONS ---
[facility] CONSULTATION NOTE Date Patient Seen: Oct 30, 2024 Time of Visit: 12:32 Supervising Physician: Dr Flores Reason for Consultation: ICU medical management Primary Care Physician: [ ] Outpatient Specialists: [ ] Inpatient Consults: GI PROBLEM LIST: Severe hypokalemia, POA Sepsis, POA Urinary tract infection, POA Chronic Diarrhea Hypothyroidism HPI: Ms. Lamar is a 59-year-old female that was seen and examined today on 10/30/2024. Patient is a good historian of personal health. Patient reports that she came to the emergency department with a chief complaint of palpitations. Onset was two months ago. Symptoms were worse yesterday on 10/28/2024 at 7:00 p.m.. Location is midsternal. Duration is on and off. Character is described as pulsing. There was no alleviating factors. Symptoms are aggravated with physical activity. Patient reports associated fever and diarrhea. Today in the emergency department potassium 1.9, urinalysis positive for leukocyte esterase and WBCs 11-25 for five powered microscopy field. Additionally patient presented with a temperature of 102.0, heart rate 106 beats per minute, respirations 22 triggering clinical sepsis criteria. Patient full code PAST MEDICAL HX: see above PAST SURGICAL HX: noncontributory SOCIAL HISTORY: No tobacco, ETOH, or illicit drug use Coded Allergies: meloxicam (Unverified Allergy, Unknown, 08/29/24) omeprazole (Unverified Allergy, Unknown, 08/29/24) REVIEW OF SYSTEMS: 12 point ROS reviewed with patient. Pertinent positives mentioned above. Otherwise negative. PHYSICAL EXAM: GENERAL: alert, weak, awake oriented x 3 HEENT: EOMI, Sclera non icteric, moist mucosa NECK: Supple, no JVD, trachea midline LUNGS: Clear breath sounds bilaterally. No wheezes HEART: Regular rate and rhythm. Normal S1 and S2, without murmurs ABD: Abdomen soft, nontender. Bowel sounds present EXT: No clubbing cyanosis or edema NEURO: Alert and oriented to person, follows commands Vital Signs (last 8hr) Date Time Temp Pulse Resp B/P (MAP) Pulse Ox O2 Delivery O2 Flow Rate FiO2 10/30/24 12:00 99.1 83 18 113/71 97 Room Air 10/30/24 10:00 76 15 117/55 98 Room Air 8/24/25 09:00 70 14 102/60 98 Room Air 10/30/24 08:00 98 Room Air* 0 21 10/30/24 08:00 97.9 73 17 98/62 99 Room Air 10/30/24 07:00 70 15 91/55 96 Room Air 10/30/24 06:00 74 16 103/65 97 Room Air 10/30/24 05:30 96 Room Air* 0 21 10/30/24 05:00 98.2 74 21 94/57 96 Room Air LABS: Hematology Labs: Test 10/30/24 10:13 10/30/24 00:54 Range/Units White Blood Count 7.4 4.8-10.8 K/uL Red Blood Count 3.82 L 4.00-5.50 MIL/uL Hemoglobin 11.1 L 12.0-16.0 g/dL Hematocrit 32.9 L 36-48 % Mean Corpuscular Volume 86.1 79-99 fL Mean Corpuscular Hemoglobin 29.1 27.0-33.0 pg Mean Corpuscular Hemoglobin Concent 33.7 32.0-36.0 g/dL Red Cell Distribution Width 14.6 11.0-15.5 % Platelet Count 141 130-400 K/uL Mean Platelet Volume 9.9 7.5-10.5 fL Immature Granulocyte % (Auto) 0.4 0-1 % Neutrophils (%) (Auto) 83.2 H 40.0-77.0 % Lymphocytes (%) (Auto) 8.0 L 21.0-51.0 % Monocytes (%) (Auto) 8.0 3.0-13.0 % Eosinophils (%) (Auto) 0.1 0.0-8.0 % Basophils (%) (Auto) 0.3 0.0-5.0 % Neutrophils # (Auto) 6.2 1.8-7.7 K/uL Lymphocytes # (Auto) 0.6 L 1.0-4.8 K/uL Monocytes # (Auto) 0.6 0.1-1.0 K/uL Eosinophils # (Auto) 0.01 0.00-0.70 K/uL Basophils # (Auto) 0.02 0.00-0.20 K/uL Absolute Immature Granulocyte (auto 0.03 0-1 K/uL Nucleated Red Blood Cells 0.0 0.0-0.19 % White Cell Morphology Comment See comments Chemistry Labs: Test 10/30/24 10:13 10/30/24 04:56 10/30/24 00:54 Range/Units Sodium Level 144 136-145 mmol/L Potassium Level 3.3 L 3.5-5.1 mmol/L Chloride Level 106 101-111 mmol/L Carbon Dioxide Level 33 H 21-32 mmol/L Blood Urea Nitrogen 5 L 7-18 mg/dL Creatinine 0.4 L 0.5-1.0 mg/dL Glomerular Filtration Rate Calc 113 >90 mL/min Random Glucose 101 70-105 mg/dL Total Calcium 8.2 L 8.5-10.1 mg/dL Magnesium Level 2.50 H 1.80-2.40 mg/dL Total Bilirubin 1.5 H 0.2-1.0 mg/dL Aspartate Amino Transf (AST/SGOT) 52 H 10-37 U/L Alanine Aminotransferase (ALT/SGPT) 43 12-78 U/L Alkaline Phosphatase 97 50-136 U/L Total Protein 7.0 6.0-8.3 g/dL Albumin 3.3 L 3.5-5.0 g/dL Hemoglobin A1c 4.6 4.0-6.0 % Estimated Average Glucose (eAG) 85 70-126 mg/dL Lactic Acid Level 1.3 0.8-2.5 mmol/L Phosphorus Level 2.6 2.5-4.9 mg/dL Procalcitonin 7.47 H 0.05-0.5 ng/mL Thyroid Stimulating Hormone (TSH) 1.62 0.36-3.74 uIU/mL Total Creatine Kinase 261 H 21-232 U/L DIAGNOSTICS / RADIOLOGY RESULTS: [ ] PLAN: Electrolyte protocol, pending repeat potassium levels, mg also corrected Patient with chronic diarrhea, pending GI consultation: Patient states that she sees a GI doctor in [facility] for over the last year trying to figure out the cause for her chronic diarrhea We will follow [facility] Fluids Review of home meds did not find causative agent Tele NEURO: Minimize central acting medications as possible. Maintain fall precautions, adequate lighting during the day PULMONARY: Supplemental 02 as needed. Maintain aspiration precautions at all times CARDIOVASCULAR: Follow hemodynamics. Vital signs per facility protocol GI & NUTRITION: Continue with nutritional support. Continue stool softeners and laxatives as needed. KIDNEYS & ELECTROLYTES: Strict monitoring of intake, output and overall fluid balance. Avoid nephrotoxic medications to the extent possible. Medications to be dosed according to renal function. Monitor electrolytes and replace as needed ENDOCRINE: Maintain blood glucose between 100-180 at all times. Hypoglycemia protocol in place INFECTIOUS DISEASE: Trend temperature, WBC and procalcitonin level Follow cultures, deescalate antibiotics as soon as possible. Panculture if new onset fever ONCOLOGY/HEMATOLOGY/COAGULATION: Monitor for s/s of bleeding Monitor hemoglobin, coagulation studies as needed SKIN: Pressure ulcer prevention per facility protocol Specialty mattress ORTHO/REHAB: Continue PT/OT Prophylaxis: Continue GI and DVT prophylaxis Code Status: Full Resuscitation Disposition: TBD Other: Total patient care time 37 minutes excluding all procedures. EDWINA LAM Oct 30, 2024 12:38
--- NOTE | 2024-10-30 16:38 | PN ---
[facility] PROGRESS NOTE Date of Service: Oct 30, 2024 Time of Service: 15:17 SUBJECTIVE: 59 year old female with PMH of osteoarthritis (s/p R and L total knee arthroplasty ),hypothyroidism , hypokalemia ,covid infection(August 2024), chronic diarrhea (>1 year, under evaluation ) presented to ER with c/o fever, chills , cough, palpitations and generalized weakness. Patient reports that she has been experiencing chest pain and palpitations on a daily basis . She has at least a 10 watery bowel movements (bloody occasionally )a day for the past1 year and she had underwent extensive evaluation including colonoscopy and EGDscopy elsewhere without any an established diagnosis. She also states that she has lost at least 50 lbs in past 1 year. 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 She attributes her coughing to this. She denies smoking, alcohol or drug abuse. At the time of presentation her temperature was 102 F, heart rate 106, respiratory rate 19, blood pressure 130/75, SpO2 100% on room air. Labs were remarkable for WBC 8.2, hemoglobin 12.1, lactic acid 2.1, potassium 1.9, magnesium 1.3, bilirubin 1.5, AST 62, procalcitonin 7.47, CK 261. EKG showed normal sinus rhythm with a nonspecific STT wave changes. CT abdomen and pelvis showed acute enterocolitis with a right diaphragmatic eventration, liver parenchymal disease, splenomegaly and prominent dilated ileo renal collaterals into left renal vein. She was admitted for further evaluation and management of sepsis and severe hypokalemia. 10/30/2024: Patient is seen and evaluated at her bedside. She states that she is feeling comparatively better. Febrile, temperature 100.2, pulse rate83 , respiratory rate18 , blood pressure 113/71, SpO2 97% room air. Labs showed downtrending lactic acid from 2.1-1.3. Potassium levels are improved to 2.6 with potassium supplementation. Pending Infectious Disease, Gastroenterology, Cardiology consults. REVIEW OF SYSTEMS CONSTITUTIONAL: Positive for fever, chills,, in unintentional weight loss. NEUROLOGICAL: Denies headache, , motor weakness, sensory deficit, vertigo/spinning sensation, gait abnormalities, or tremors. ENT: No hearing loss, otalgia, otorrhea, rhinitis, rhinorrhea, hoarseness, or sore throat. CARDIOVASCULAR: Denies any exertional angina, dyspnea on exertion, orthopnea, paroxysmal nocturnal dyspnea, positive for palpitation PULMONARY: Denies any shortness of breath, positive for cough, hemoptysis, pleuritic chest pain. SLEEP: Denies morning headaches, daytime somnolence or napping. Denies difficulty falling asleep, staying asleep, waking from sleep. Denies knowledge of snoring. GASTROINTESTINAL: Positive for difficulty in swallowing, loose stools GENITOURINARY: Denies dysuria, hematuria, incontinence ENDOCRINOLOGIC: Denies polyuria, polydipsia, polyphagia or heat/cold intolerances. HEMATOLOGIC: Denies thrombophilia/previous clots, or coagulopathy/bleeding disorders. ONCOLOGIC: Denies personal history of malignancy. DERMATOLOGIC: Denies rashes or pruritus. PSYCHIATRIC: Denies any suicidal or homicidal ideation. Denies hallucinations. PHYSICAL EXAM GENERAL APPEARANCE: The patient is awake, alert, and oriented, in no acute cardiopulmonary distress. NEUROLOGICAL: Cranial nerves II-XII grossly intact. Motor is 5/5 in bilateral upper and lower extremities proximal to distal. No sensory deficits. HEENT: Face is symmetric. Pupils are equal and reactive. Extraocular movements are intact. NECK: Supple. No JVD. No thyromegaly. No submental, submandibular, pre- /postauricular, occipital or supraclavicular lymphadenopathy. CHEST: Normal chest expansion. No Telemetry. LUNGS: Absence of any rales, rhonchi or any wheezing. CARDIOVASCULAR: Regular. S1 and S2 normal. No appreciable rubs, murmurs or gallops. ABDOMEN: Soft, nontender, and nondistended. There is no rebound, voluntary guarding, or rigidity. : Deferred. No Chauhan. EXTREMITIES: Non-edematous and not cyanotic. No clubbing. Good capillary refill. SKIN: No skin breakdown. Vital Signs (last 8hr) Date Time Temp Pulse Resp B/P (MAP) Pulse Ox O2 Delivery O2 Flow Rate FiO2 10/30/24 13:35 100.2 10/30/24 12:00 99.1 83 18 113/71 97 Room Air 10/30/24 10:00 76 15 117/55 98 Room Air 10/30/24 09:00 70 14 102/60 98 Room Air 10/30/24 08:00 98 Room Air* 0 21 10/30/24 08:00 97.9 73 17 98/62 99 Room Air LABS: Laboratory: Test 10/30/24 10:13 10/30/24 04:56 10/30/24 01:58 10/30/24 00:54 Range/Units White Blood Count 7.4 4.8-10.8 K/uL Red Blood Count 3.82 L 4.00-5.50 MIL/uL Hemoglobin 11.1 L 12.0-16.0 g/dL Hematocrit 32.9 L 36-48 % Mean Corpuscular Volume 86.1 79-99 fL Mean Corpuscular Hemoglobin 29.1 27.0-33.0 pg Mean Corpuscular Hemoglobin Concent 33.7 32.0-36.0 g/dL Red Cell Distribution Width 14.6 11.0-15.5 % Platelet Count 141 130-400 K/uL Mean Platelet Volume 9.9 7.5-10.5 fL Immature Granulocyte % (Auto) 0.4 0-1 % Neutrophils (%) (Auto) 83.2 H 40.0-77.0 % Lymphocytes (%) (Auto) 8.0 L 21.0-51.0 % Monocytes (%) (Auto) 8.0 3.0-13.0 % Eosinophils (%) (Auto) 0.1 0.0-8.0 % Basophils (%) (Auto) 0.3 0.0-5.0 % Neutrophils # (Auto) 6.2 1.8-7.7 K/uL Lymphocytes # (Auto) 0.6 L 1.0-4.8 K/uL Monocytes # (Auto) 0.6 0.1-1.0 K/uL Eosinophils # (Auto) 0.01 0.00-0.70 K/uL Basophils # (Auto) 0.02 0.00-0.20 K/uL Absolute Immature Granulocyte (auto 0.03 0-1 K/uL Nucleated Red Blood Cells 0.0 0.0-0.19 % Sodium Level 144 136-145 mmol/L Potassium Level 3.3 L 3.5-5.1 mmol/L Chloride Level 106 101-111 mmol/L Carbon Dioxide Level 33 H 21-32 mmol/L Blood Urea Nitrogen 5 L 7-18 mg/dL Creatinine 0.4 L 0.5-1.0 mg/dL Glomerular Filtration Rate Calc 113 >90 mL/min Random Glucose 101 70-105 mg/dL Total Calcium 8.2 L 8.5-10.1 mg/dL Magnesium Level 2.50 H 1.80-2.40 mg/dL Total Bilirubin 1.5 H 0.2-1.0 mg/dL Aspartate Amino Transf (AST/SGOT) 52 H 10-37 U/L Alanine Aminotransferase (ALT/SGPT) 43 12-78 U/L Alkaline Phosphatase 97 50-136 U/L Total Protein 7.0 6.0-8.3 g/dL Albumin 3.3 L 3.5-5.0 g/dL Thyroid Stimulating Hormone (TSH) 2.03 # 0.36-3.74 uIU/mL Hemoglobin A1c 4.6 4.0-6.0 % Estimated Average Glucose (eAG) 85 70-126 mg/dL Lactic Acid Level 1.3 0.8-2.5 mmol/L Phosphorus Level 2.6 2.5-4.9 mg/dL Procalcitonin 7.47 H 0.05-0.5 ng/mL Urine Color LIGHT-YELLOW YELLOW Urine Appearance CLEAR CLEAR Urine pH 5.0 5.0-8.0 Urine Specific [place] 1.007 1.001-1.031 Urine Protein NEGATIVE NEGATIVE mg/dL Urine Glucose (UA) NEGATIVE NEGATIVE mg/dL Urine Ketones NEGATIVE NEGATIVE mg/dL Urine Occult Blood NEGATIVE NEGATIVE Urine Nitrate NEGATIVE NEGATIVE Urine Bilirubin NEGATIVE NEGATIVE mg/dL Urine Urobilinogen 0.2 0.2-1.0 mg/dL Urine Leukocyte Esterase 75 H NEGATIVE Uriel/uL Urine RBC 2-5 H 0-1 /HPF Urine WBC 11-25 H 0-1 /HPF Urine Squamous Epithelial Cells RARE 0-2 /HPF Urine Bacteria RARE None Seen /HPF Urine Random Creatinine 30.60 30-135 mg/dL Urine Random Potassium 12 L 25-125 mmol/L Urine Random Chloride 125 110-250 mmol/L White Cell Morphology Comment See comments Total Creatine Kinase 261 H 21-232 U/L Influenza Type A Antigen Negative For Type A NEGATIVE Influenza Type B Antigen Negative For Type B NEGATIVE SARS-CoV-2 Antigen (Rapid) PRESUMPTIVE NEGATIVE NEGATIVE Group A Streptococcus Rapid negative NEGATIVE Current Medications Medications (Trade) Dose Ordered Sig/Vinod Route PRN Reason Start Time Stop Time Status Last Admin Dose Admin Acetaminophen (TYLenol 325MG TAB) 650 mg Q6H PRN PO TEMPERATURE GREATER THAN 101.5 10/30/24 04:00 11/29/24 03:59 10/30/24 13:35 Enoxaparin Sodium (Lovenox) 40 mg DAILY SQ 10/30/24 09:00 11/29/24 08:59 10/30/24 07:56 Famotidine (Pepcid 20mg Tab) 20 mg DAILY PO 10/30/24 09:00 11/29/24 08:59 10/30/24 07:55 Hydralazine HCl (APRESOLine 20MG INJ) 10 mg Q6H PRN IV For:SBP above 160;DBP above 90 10/30/24 04:00 11/29/24 03:59 Lactated Ringer's 1,000 ml @ 75 mls/hr [id number] IV 10/30/24 04:00 10/30/24 11:29 DC 10/30/24 05:43 Magnesium Sulfate 50 ml @ 0 mls/hr PROTOCOL PRN IV h 10/30/24 04:00 11/29/24 03:59 10/30/24 07:56 Morphine Sulfate (morPHINE 2MG SYG) 2 mg Q4H PRN IVP SEVERE PAIN (7-10) 10/30/24 04:00 11/06/24 03:59 Ondansetron HCl (zoFRAN 4MG INJ) 4 mg Q6H PRN IV NAUSEA/VOMITING 10/30/24 04:00 11/29/24 03:59 Piperacillin Sod/ Tazobactam Sod (Zosyn 3.375gm+NS 50ml) 3.375 gm Q8H IV 10/30/24 12:00 11/09/24 11:59 10/30/24 11:07 Potassium Chloride 10 meq/ Sodium Chloride 50 ml @ 50 mls/hr PROTOCOL IV 10/30/24 02:00 10/30/24 01:55 DC Potassium Chloride/Sodium Chloride 1,000 ml @ 100 mls/hr Q10H IV 10/30/24 05:00 10/30/24 11:29 DC 10/30/24 05:42 Potassium Chloride 100 ml @ 100 mls/hr AD PRN IV POTASSIUM PROTOCOL 10/30/24 02:00 11/29/24 01:59 10/30/24 04:55 Potassium Chloride (K-Dur/Klor-Con 20meq) 20 meq AD PRN PO POTASSIUM PROTOCOL 10/30/24 05:00 11/29/24 04:59 10/30/24 13:31 Potassium Chloride (KCl 10% Elixir 20meq/15ml) 20 meq AD PRN PO POTASSIUM PROTOCOL 10/30/24 05:00 11/29/24 04:59 10/30/24 05:42 DIAGNOSTICS / RADIOLOGY: PROCEDURE: ABD PEL W - CT ABDOMEN/PELVIS W/CONTRAST EXAM: CT Abdomen and Pelvis with IV contrast CLINICAL HISTORY: Chronic diarrhea. TECHNIQUE: Thin collimated axial CT images of the abdomen and pelvis were obtained, with sagittal and coronal reformatted images also submitted. A CT scan is done according to ALARA (As Low As Reasonably Achievable). CONTRAST: Contrast information is not available. COMPARISON: None. FINDINGS: Unremarkable visualized lung parenchyma. 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 Mild heterogeneous coarse attenuation of the liver, probably changes of liver parenchymal disease. Borderline splenomegaly. Prominent dilated lienorenal collaterals ending into the left renal vein. Post cholecystectomy status. No obvious focal lesion in the adrenal glands, pancreas, or the kidneys. No focal abnormality within the liver, gallbladder, pancreas, spleen, adrenals, or kidneys. Nondilated fluid-filled small and large bowel loops with mild diffuse mucosal thickening, concerning acute enterocolitis. 0.6 cm enhancing focus around the anal region, could be hemorrhoid. Mild hiatus hernia. No features of bowel obstruction or ileus. The appendix is normal. There is no abnormality within the urinary bladder. Unremarkable reproductive organs. Abdominal and pelvic vessels are patent. Minimal atherosclerotic calcification of the infrarenal aorta and bilateral common iliac arteries. No lymphadenopathy. No free fluid. There is no acute osseous abnormality. Mild degenerative changes in the sacroiliac, superolateral joint, and multilevel degenerative facet arthropathy. IMPRESSIONS: Mild acute enterocolitis. Questionable mild hemorrhoids. Mild hiatus hernia. 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 Mild heterogeneous coarse attenuation of the liver, probably changes of liver parenchymal disease. Borderline splenomegaly. Prominent dilated lienorenal collaterals ending into the left renal vein. No focal lesion in the pancreas or features of pancreatitis. /Mcbee DICTATED BY: ERICKA DALEY Jr., MD DATE: 10/30/24543 ELECTRONICALLY SIGNED BY: ERICKA DALEY Jr., MD DATE: 10/30/24543 ASSESSMENT: Severe hypokalemia, POA Sepsis, POA Acute cystitis POA Chronic Diarrhea Hypothyroidism Severe Protein calorie malnutrition, POA PLAN: Severe hypokalemia, secondary to chronic diarrhea and poor oral intake POA Improving serum potassium Random urine [id number] millimoles per L Potassium replacement protocol in place Magnesium replacement protocol in place Continue telemetry Sepsis, POA Unknown source Pending ID recommendations Continue IV Zosyn Critical Care on board Acute cystitis POA Pending urine culture Chronic Diarrhea (RN)will fax stool electrolytes to the lab for fecal osmolality . Pending GI consult Pending fecal fat quantitative Hypothyroidism TSH within normal limits continue home medication Other: Patient complaining of cough we will do a bedside swallow evaluation;we will R equest a CT chest. Differential diagnosis not limited to medullary thyroid cancer, disseminated tuberculosis, lymphoma, vipoma, chronic hepatitis - pending calcitonin level, HIV reflex study, ultrasound soft tissue neck. ATTESTATION BY PHYSICIAN I have seen and examined the patient. I reviewed the documentation, medical decision making, and treatment plan as noted by the resident provider above. I agree with the findings and plan of care. Ezra Veronica MD, ANCHU A MD Oct 30, 2024 16:38
[2024-10-30 19:20] LABS: HIV 1&2 ANTIBODY Preliminary Positive (Negative)
[2024-10-30 22:46] LABS: PHOSPHORUS 3.0 mg/dL (2.5-4.9)
--- NOTE | 2024-10-31 01:55 | CONS ---
INFECTIOUS DISEASE CONSULTATION DATE OF SERVICE: 10/30/2024 REQUESTING PHYSICIAN: Ezra Veronica MD REASON FOR CONSULTATION: Chronic diarrhea and sepsis. HISTORY OF PRESENT ILLNESS: This is a 59-year-old female with a history of hypothyroidism, presented to the hospital with fever, chills, and diarrhea. The patient found with sepsis, admitted to ICU. The patient's urinalysis was positive. The patient is complaining of diarrhea, which has been going on for about a year and multiple colonoscopies have been done without causative reason found. The patient denies recent travel and no history of sick contact. Stool is watery and occasionally mixed with blood. Claims she has lost about 50 pounds. No cough. No hemoptysis or pleuritic pain. The patient found with severe hypokalemia and was admitted to ICU. PAST MEDICAL HISTORY: Hypothyroidism. PAST SURGICAL HISTORY: Bilateral total knee arthroplasty. ALLERGIES: * MELOXICAM. * OMEPRAZOLE. CURRENT MEDICATIONS: Reviewed. SOCIAL HISTORY:. No alcohol, tobacco or illicit drug use. FAMILY HISTORY: Noncontributory. REVIEW OF SYSTEMS: CONSTITUTIONAL: Positive for fever and weight loss. No night sweats. EYES: No eye pain. No photophobia or diplopia. HENT: No sore throat. No rhinorrhea or earache. NECK: No neck pain or neck swelling. RESPIRATORY: Denies cough, hemoptysis or pleuritic pain. CARDIOVASCULAR: No chest pain. No palpitation or orthopnea. GASTROINTESTINAL: Positive for diarrhea. No abdominal pain. GENITOURINARY: No dysuria or urinary frequency. CENTRAL NERVOUS SYSTEM: No headache, dyspnea, or slurred speech. PSYCHIATRY: No depression. No suicidal ideation. MUSCULOSKELETAL: No joint pain or joint swelling. PHYSICAL EXAMINATION: GENERAL: Elderly female, awake. VITAL SIGNS: Temperature 97.9, pulse 76, respiratory rate 15, BP 117/55. EYES: No icterus. Pupils equal and reactive. HENT: No oral thrush seen. Moist oral mucosa. NECK: Supple. No JVD or thyromegaly. LUNGS: Good air entry. No rales. No rhonchi. CARDIOVASCULAR SYSTEM: S1 and S2, regular. No murmur heard. ABDOMEN: Full, soft, nontender. Bowel sound is present. CENTRAL NERVOUS SYSTEM: Awake, alert, oriented x 3. No focal deficits. SKIN: No rashes. No itchiness. LYMPHATIC: No peripheral lymphadenopathy. BACK: No deformity. No pressure ulcer. MUSCULOSKELETAL: No joint swelling, erythema or tenderness. VASCULAR: No ischemia or gangrene of extremities. LABORATORY DATA: Sodium 144, potassium 3.3. BUN 5, creatinine 0.4. WBC 7.5, hemoglobin 11.1, platelets 141. Urinalysis, wbc 25, leukocyte esterase 55. RADIOLOGY: CT of the abdomen and pelvis shows mild acute enterocolitis. ASSESSMENT: A 59-year-old female presented with fever, chills and urinary symptoms. CURRENT PROBLEMS: Include: * Gram-negative sepsis. * Urinary tract infection. * Possible noninfectious gastroenteritis. * Hypokalemia. * Abnormal weight loss. * . PLAN: * Send stool for Tropheryma. * Send stool for PCR. * Obtain study. * Correct electrolyte as needed. * Continue critical support. * Continue DVT prophylaxis. * Continue Synthroid. * Monitor renal function. * The patient will be followed up closely. Thank you for allowing me to participate in the care of this patient. TID: [id number] RECEIPT: [id number]
[2024-10-31 03:38] VITALS: BP 108/63; PULSE 81; RESP 18; TEMP 99.4
[2024-10-31 04:05] LABS: IMMATURE GRANULOCYTE ABSOLUTE 0.01 K/uL (0-1); NUCLEATED RED BLOOD CELLS 0.0 % (0.0-0.19); PLATELET COUNT (AUTO) 117 K/uL (130-400); RED BLOOD CELL COUNT(AUTO) 3.46 MIL/uL (4.00-5.50); RED CELL DISTRIBUTION WIDTH 14.8 % (11.0-15.5); WHITE BLOOD COUNT (AUTO) 4.2 K/uL (4.8-10.8)
[2024-10-31 04:33] LABS: ASPARTATE AMINOTRANSFERASE 34.0 U/L (10-37); CREATININE 0.5 mg/dL (0.5-1.0); GLOMERULAR FILTR. RATE CALC 107.0 mL/min (>90); GLUCOSE,RANDOM 88.0 mg/dL (70-105); PHOSPHORUS 2.4 mg/dL (2.5-4.9); SODIUM SERUM 140.0 mmol/L (136-145); TOTAL PROTEIN, SERUM 6.3 g/dL (6.0-8.3); UREA NITROGEN, BLOOD 5.0 mg/dL (7-18)
--- NOTE | 2024-10-31 06:17 | HMCIMG ---
EXAMINATION: SOFT TISSUE ULTRASOUND OF THE NECK. CLINICAL HISTORY: Neck mass and dysphagia. COMPARISON: CT chest without contrast from the same day. TECHNIQUE: Transverse and longitudinal images were obtained in the neck. FINDINGS: There are lymph nodes that measure 0.4 x 0.4 x 0.5 cm, 0.8 x 0.5 x 1.1 cm, 0.4 x 0.2 x 0.3 cm in the right side of the neck and 0.7 x 0.4 x 0.8 cm, 0.9 x 1.0 x 0.5 cm in the left side of the neck. Hilar echoes are maintained. No increased vascularity. IMPRESSION: Bilateral cervical lymph nodes. Recommend CT neck with contrast for further evaluation. /Ernie
--- NOTE | 2024-10-31 07:51 | HMCIMG ---
EXAM: CT Chest Without Contrast. CLINICAL HISTORY: Cough and weight loss. TECHNIQUE: Thin collimated axial CT images of the chest were obtained, with sagittal and coronal reformatted images also submitted. CT scan done according to ALARA (As Low as Reasonably Achievable). CONTRAST USED: None. COMPARISON: X-ray dated October 30, 2024. FINDINGS: Mild atelectasis in the right basal segment. No collapse or consolidation. No pulmonary nodules. No pleural effusions. No pericardial effusion. The heart size is within normal limits. Mild calcification of the coronary arteries with mild atherosclerotic changes in the aorta. No axillary, supraclavicular, or mediastinal lymphadenopathy. No focal thyroid abnormality. 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 No acute or suspicious osseous abnormality. IMPRESSION: 1. No pulmonary infiltrate or effusion. 2. No suspicious lung nodule. Lung RADS category 1. Continue annual screening with LDCT. 3. 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 4. Mild coronary artery disease with atherosclerosis. /[place]
[2024-10-31 08:00] VITALS: BP 104/67; PULSE 75; RESP 23; TEMP 99.2; O2SAT 99
--- NOTE | 2024-10-31 10:38 | PN ---
[facility] PROGRESS NOTE Date Patient Seen: Oct 31, 2024 Time of Visit: 10:31 Supervising Physician: Dr Rooney Primary Care Physician: [ ] Outpatient Specialists: [ ] Inpatient Consults: GI, ID, Hemonc PROBLEM LIST: Severe hypokalemia, POA Sepsis, POA Urinary tract infection, POA Chronic Diarrhea Hypothyroidism INTERVAL HISTORY: Patient is awake alert and oriented, states that diarrhea has improved, denies any chest pain or shortness of breath. No palpitations Tolerating her diet Vital signs are stable, afebrile, Labs have improved, serology has come back positive for HIV. Pending additional labs Ultrasound performed yesterday revealed multiple cervical lymphadenopathy Plan: We continue to follow cultures, she remains on Zosyn Continue to monitor potassium levels, replace per protocol Patients platelets have been declining, Heme-Onc consulted ID was consulted REVIEW OF SYSTEMS: 12 point ROS reviewed with patient. Pertinent positives mentioned above. Otherwise negative. PHYSICAL EXAM: GENERAL: alert, weak, awake oriented x 3 HEENT: EOMI, Sclera non icteric, moist mucosa NECK: Supple, no JVD, trachea midline LUNGS: Clear breath sounds bilaterally. No wheezes HEART: Regular rate and rhythm. Normal S1 and S2, without murmurs ABD: Abdomen soft, nontender. Bowel sounds present EXT: No clubbing cyanosis or edema NEURO: Alert and oriented to person, follows commands Vital Signs (last 8hr) Date Time Temp Pulse Resp B/P (MAP) Pulse Ox O2 Delivery O2 Flow Rate FiO2 10/31/24 08:00 99.1 75 23 104/67 99 10/31/24 08:00 99 Room Air* 0 21 10/31/24 03:38 99.3 81 18 108/63 99 Room Air LABS: Hematology Labs: Test 10/31/24 03:57 10/30/24 00:54 Range/Units White Blood Count 4.2 #L 4.8-10.8 K/uL Red Blood Count 3.46 L 4.00-5.50 MIL/uL Hemoglobin 10.0 L 12.0-16.0 g/dL Hematocrit 29.9 L 36-48 % Mean Corpuscular Volume 86.4 79-99 fL Mean Corpuscular Hemoglobin 28.9 27.0-33.0 pg Mean Corpuscular Hemoglobin Concent 33.4 32.0-36.0 g/dL Red Cell Distribution Width 14.8 11.0-15.5 % Platelet Count 117 L 130-400 K/uL Mean Platelet Volume 10.0 7.5-10.5 fL Immature Granulocyte % (Auto) 0.2 0-1 % Neutrophils (%) (Auto) 70.1 40.0-77.0 % Lymphocytes (%) (Auto) 17.7 L 21.0-51.0 % Monocytes (%) (Auto) 10.3 3.0-13.0 % Eosinophils (%) (Auto) 1.2 0.0-8.0 % Basophils (%) (Auto) 0.5 0.0-5.0 % Neutrophils # (Auto) 2.9 1.8-7.7 K/uL Lymphocytes # (Auto) 0.7 L 1.0-4.8 K/uL Monocytes # (Auto) 0.4 0.1-1.0 K/uL Eosinophils # (Auto) 0.05 0.00-0.70 K/uL Basophils # (Auto) 0.02 0.00-0.20 K/uL Absolute Immature Granulocyte (auto 0.01 0-1 K/uL Nucleated Red Blood Cells 0.0 0.0-0.19 % White Cell Morphology Comment See comments Chemistry Labs: Test 10/31/24 03:57 10/30/24 10:13 10/30/24 04:56 10/30/24 00:54 Range/Units Sodium Level 140 136-145 mmol/L Potassium Level 4.3 3.5-5.1 mmol/L Chloride Level 109 101-111 mmol/L Carbon Dioxide Level 28 21-32 mmol/L Blood Urea Nitrogen 5 L 7-18 mg/dL Creatinine 0.5 0.5-1.0 mg/dL Glomerular Filtration Rate Calc 107 >90 mL/min Random Glucose 88 70-105 mg/dL Lactic Acid Level 0.8 0.8-2.5 mmol/L Total Calcium 8.1 L 8.5-10.1 mg/dL Phosphorus Level 2.4 L 2.5-4.9 mg/dL Magnesium Level 1.80 1.80-2.40 mg/dL Total Bilirubin 1.2 H 0.2-1.0 mg/dL Aspartate Amino Transf (AST/SGOT) 34 10-37 U/L Alanine Aminotransferase (ALT/SGPT) 32 # 12-78 U/L Alkaline Phosphatase 82 50-136 U/L C-Reactive Protein, Quantitative 45.00 H 0.5-3.0 mg/L Total Protein 6.3 6.0-8.3 g/dL Albumin 3.0 L 3.5-5.0 g/dL Procalcitonin 6.94 H 0.05-0.5 ng/mL Thyroid Stimulating Hormone (TSH) 2.03 # 0.36-3.74 uIU/mL Hemoglobin A1c 4.6 4.0-6.0 % Estimated Average Glucose (eAG) 85 70-126 mg/dL Total Creatine Kinase 261 H 21-232 U/L DIAGNOSTICS / RADIOLOGY RESULTS: [ ] PLAN: NEURO: Minimize central acting medications as possible. Maintain fall precautions, adequate lighting during the day PULMONARY: Supplemental 02 as needed. Maintain aspiration precautions at all times CARDIOVASCULAR: Follow hemodynamics. Vital signs per facility protocol GI & NUTRITION: Continue with nutritional support. Continue stool softeners and laxatives as needed. KIDNEYS & ELECTROLYTES: Strict monitoring of intake, output and overall fluid balance. Avoid nephrotoxic medications to the extent possible. Medications to be dosed according to renal function. Monitor electrolytes and replace as needed ENDOCRINE: Maintain blood glucose between 100-180 at all times. Hypoglycemia protocol in place INFECTIOUS DISEASE: Trend temperature, WBC and procalcitonin level Follow cultures, deescalate antibiotics as soon as possible. Panculture if new onset fever ONCOLOGY/HEMATOLOGY/COAGULATION: Monitor for s/s of bleeding Monitor hemoglobin, coagulation studies as needed SKIN: Pressure ulcer prevention per facility protocol Specialty mattress ORTHO/REHAB: Continue PT/OT Prophylaxis: Continue GI and DVT prophylaxis Code Status: Full Resuscitation Disposition: TBD Other: Total patient care time 36 minutes excluding all procedures. EDWINA LAM Oct 31, 2024 10:38
--- NOTE | 2024-10-31 11:21 | PN ---
[facility] PROGRESS NOTE Date Patient Seen: Oct 31, 2024 Time of Visit: 11:19 Supervising Physician: [Jerald Rooney MD] Primary Care Physician: [ ] Outpatient Specialists: [ ] Inpatient Consults: GI, ID, Hemonc PROBLEM LIST: Severe hypokalemia, POA Sepsis, POA Urinary tract infection, POA Chronic Diarrhea Hypothyroidism Thrombocytopenia INTERVAL HISTORY: Patient is awake, alert, and oriented and comfortable. She states diarrhea has improved but still had an episode this morning. She denies any shortness of breath, chest pain, palpitations, fevers or chills. Tolerating regular diet well. Labs have improved with potassium up to 4.3. Hemoglobin down from 12.1 to 10. Platelets slightly low at 117. Serology preliminary positive for HIV. Pending additional labs for confirmation, patient has not been yet notified. Infectious disease is still following patient. Ultrasound of neck revealed multiple cervical lymphadenopathy. We will order a CT with contrast. Pending stool cultures and PCR. Continued on Zosyn. GI consult still pending. [facility] with tele. REVIEW OF SYSTEMS: 12 point ROS reviewed with patient. Pertinent positives mentioned above. Otherwise negative. PHYSICAL EXAM: GENERAL: alert, weak, awake oriented x 3 HEENT: EOMI, Sclera non icteric, moist mucosa NECK: Supple, no JVD, trachea midline LUNGS: Clear breath sounds bilaterally. No wheezes HEART: Regular rate and rhythm. Normal S1 and S2, without murmurs ABD: Abdomen soft, nontender. Bowel sounds present EXT: No clubbing cyanosis or edema NEURO: Alert and oriented to person, follows commands Vital Signs (last 8hr) Date Time Temp Pulse Resp B/P (MAP) Pulse Ox O2 Delivery O2 Flow Rate FiO2 10/31/24 08:00 99.1 75 23 104/67 99 10/31/24 08:00 99 Room Air* 0 21 10/31/24 03:38 99.3 81 18 108/63 99 Room Air LABS: Hematology Labs: Test 10/31/24 03:57 10/30/24 00:54 Range/Units White Blood Count 4.2 #L 4.8-10.8 K/uL Red Blood Count 3.46 L 4.00-5.50 MIL/uL Hemoglobin 10.0 L 12.0-16.0 g/dL Hematocrit 29.9 L 36-48 % Mean Corpuscular Volume 86.4 79-99 fL Mean Corpuscular Hemoglobin 28.9 27.0-33.0 pg Mean Corpuscular Hemoglobin Concent 33.4 32.0-36.0 g/dL Red Cell Distribution Width 14.8 11.0-15.5 % Platelet Count 117 L 130-400 K/uL Mean Platelet Volume 10.0 7.5-10.5 fL Immature Granulocyte % (Auto) 0.2 0-1 % Neutrophils (%) (Auto) 70.1 40.0-77.0 % Lymphocytes (%) (Auto) 17.7 L 21.0-51.0 % Monocytes (%) (Auto) 10.3 3.0-13.0 % Eosinophils (%) (Auto) 1.2 0.0-8.0 % Basophils (%) (Auto) 0.5 0.0-5.0 % Neutrophils # (Auto) 2.9 1.8-7.7 K/uL Lymphocytes # (Auto) 0.7 L 1.0-4.8 K/uL Monocytes # (Auto) 0.4 0.1-1.0 K/uL Eosinophils # (Auto) 0.05 0.00-0.70 K/uL Basophils # (Auto) 0.02 0.00-0.20 K/uL Absolute Immature Granulocyte (auto 0.01 0-1 K/uL Nucleated Red Blood Cells 0.0 0.0-0.19 % White Cell Morphology Comment See comments Chemistry Labs: Test 10/31/24 03:57 10/30/24 10:13 10/30/24 04:56 10/30/24 00:54 Range/Units Sodium Level 140 136-145 mmol/L Potassium Level 4.3 3.5-5.1 mmol/L Chloride Level 109 101-111 mmol/L Carbon Dioxide Level 28 21-32 mmol/L Blood Urea Nitrogen 5 L 7-18 mg/dL Creatinine 0.5 0.5-1.0 mg/dL Glomerular Filtration Rate Calc 107 >90 mL/min Random Glucose 88 70-105 mg/dL Lactic Acid Level 0.8 0.8-2.5 mmol/L Total Calcium 8.1 L 8.5-10.1 mg/dL Phosphorus Level 2.4 L 2.5-4.9 mg/dL Magnesium Level 1.80 1.80-2.40 mg/dL Total Bilirubin 1.2 H 0.2-1.0 mg/dL Aspartate Amino Transf (AST/SGOT) 34 10-37 U/L Alanine Aminotransferase (ALT/SGPT) 32 # 12-78 U/L Alkaline Phosphatase 82 50-136 U/L C-Reactive Protein, Quantitative 45.00 H 0.5-3.0 mg/L Total Protein 6.3 6.0-8.3 g/dL Albumin 3.0 L 3.5-5.0 g/dL Procalcitonin 6.94 H 0.05-0.5 ng/mL Thyroid Stimulating Hormone (TSH) 2.03 # 0.36-3.74 uIU/mL Hemoglobin A1c 4.6 4.0-6.0 % Estimated Average Glucose (eAG) 85 70-126 mg/dL Total Creatine Kinase 261 H 21-232 U/L DIAGNOSTICS / RADIOLOGY RESULTS: PATIENT: ENRIQUE NUÑEZ MR#: [id number] : 1965 SEX: F AGE: 59 LOCATION: [facility] ORDER [id number] STATUS: ADM IN HOSPITAL REPORT#: [id number] SERVICE 1638 REASON: HISTORY OF ?NECK MASSES ,DYSPHAGIA ORDERING PHYSICIAN: VELASQUEZ PINEDA MD PROCEDURE: SOFT NECK - US SOFT TISSUE NECK EXAMINATION: SOFT TISSUE ULTRASOUND OF THE NECK. CLINICAL HISTORY: Neck mass and dysphagia. COMPARISON: CT chest without contrast from the same day. TECHNIQUE: Transverse and longitudinal images were obtained in the neck. FINDINGS: There are lymph nodes that measure 0.4 x 0.4 x 0.5 cm, 0.8 x 0.5 x 1.1 cm, 0.4 x 0.2 x 0.3 cm in the right side of the neck and 0.7 x 0.4 x 0.8 cm, 0.9 x 1.0 x 0.5 cm in the left side of the neck. Hilar echoes are maintained. No increased vascularity. IMPRESSION: Bilateral cervical lymph nodes. Recommend CT neck with contrast for further evaluation. /[place] DICTATED BY: CHAD LILLY MD DATE: 10/31/24716 ELECTRONICALLY SIGNED BY: CHAD LILLY MD DATE: 10/31/24716 PATIENT: ENRIQUE NUÑEZ MR#: [id number] : 1965 SEX: F AGE: 59 LOCATION: [facility] ORDER [id number] STATUS: ADM IN REPORT#: [id number] SERVICE 1638 REASON: C/C COUGH, WEIGHT LOSS ORDERING PHYSICIAN: VELASQUEZ PINEDA MD PROCEDURE: CHEST WO - CT CHEST W/O CONTRAST EXAM: CT Chest Without Contrast. CLINICAL HISTORY: Cough and weight loss. TECHNIQUE: Thin collimated axial CT images of the chest were obtained, with sagittal and coronal reformatted images also submitted. CT scan done according to ALARA (As Low as Reasonably Achievable). CONTRAST USED: None. COMPARISON: X-ray dated October 30, 2024. FINDINGS: Mild atelectasis in the right basal segment. No collapse or consolidation. No pulmonary nodules. No pleural effusions. No pericardial effusion. The heart size is within normal limits. Mild calcification of the coronary arteries with mild atherosclerotic changes in the aorta. No axillary, supraclavicular, or mediastinal lymphadenopathy. No focal thyroid abnormality. 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 No acute or suspicious osseous abnormality. IMPRESSION: 1. No pulmonary infiltrate or effusion. 2. No suspicious lung nodule. Lung RADS category 1. Continue annual screening with LDCT. 3. 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 4. Mild coronary artery disease with atherosclerosis. /[place] DICTATED BY: CHAD LILLY MD DATE: 10/31/24850 ELECTRONICALLY SIGNED BY: CHAD LILLY MD DATE: 10/31/24850 PATIENT: ENRIQUE NUÑEZ MR#: [id number] : 1965 SEX: F AGE: 59 LOCATION: [facility] ORDER 3 STATUS: ADM IN REPORT#: [id number] SERVICE 0 REASON: chronic diarrhea fever ORDERING PHYSICIAN: BLAIR FAUST MD PROCEDURE: ABD PEL W - CT ABDOMEN/PELVIS W/CONTRAST EXAM: CT Abdomen and Pelvis with IV contrast CLINICAL HISTORY: Chronic diarrhea. TECHNIQUE: Thin collimated axial CT images of the abdomen and pelvis were obtained, with sagittal and coronal reformatted images also submitted. A CT scan is done according to ALARA (As Low As Reasonably Achievable). CONTRAST: Contrast information is not available. COMPARISON: None. FINDINGS: Unremarkable visualized lung parenchyma. 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 Mild heterogeneous coarse attenuation of the liver, probably changes of liver parenchymal disease. Borderline splenomegaly. Prominent dilated lienorenal collaterals ending into the left renal vein. Post cholecystectomy status. No obvious focal lesion in the adrenal glands, pancreas, or the kidneys. No focal abnormality within the liver, gallbladder, pancreas, spleen, adrenals, or kidneys. Nondilated fluid-filled small and large bowel loops with mild diffuse mucosal thickening, concerning acute enterocolitis. 0.6 cm enhancing focus around the anal region, could be hemorrhoid. Mild hiatus hernia. No features of bowel obstruction or ileus. The appendix is normal. There is no abnormality within the urinary bladder. Unremarkable reproductive organs. Abdominal and pelvic vessels are patent. Minimal atherosclerotic calcification of the infrarenal aorta and bilateral common iliac arteries. No lymphadenopathy. No free fluid. There is no acute osseous abnormality. Mild degenerative changes in the sacroiliac, superolateral joint, and multilevel degenerative facet arthropathy. IMPRESSIONS: Mild acute enterocolitis. Questionable mild hemorrhoids. Mild hiatus hernia. 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 Mild heterogeneous coarse attenuation of the liver, probably changes of liver parenchymal disease. Borderline splenomegaly. Prominent dilated lienorenal collaterals ending into the left renal vein. No focal lesion in the pancreas or features of pancreatitis. /[place] DICTATED BY: ERICKA DALEY Jr., MD DATE: 10/30/24543 ELECTRONICALLY SIGNED BY: ERICKA DALEY Jr., MD DATE: 10/30/24543 PATIENT: ENRIQUE NUÑEZ MR#: [id number] : 1965 SEX: F AGE: 59 LOCATION: [facility] ORDER STATUS: REG ER REPORT#: [id number] SERVICE REASON: sepsis ORDERING PHYSICIAN: BLAIR FAUST MD PROCEDURE: CXR1VW - CHEST 1VW EXAM: CR Chest, 1 view. CLINICAL HISTORY: Sepsis. COMPARISON: Prior chest radiograph dated 30 August 2024. FINDINGS: Elevated right hemidiaphragm consistent with right diaphragmatic eventration. The lungs show no infiltrate or other acute findings. No pleural effusion or pneumothorax. The cardiomediastinal silhouette is within normal limits. No acute osseous abnormality. 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 No acute cardiopulmonary pathology is evident. Compared to the prior study, there is no significant interval change. /[place] DICTATED BY: ERICKA DALEY Jr., MD DATE: 10/30/24325 ELECTRONICALLY SIGNED BY: ERICKA DALEY Jr., MD DATE: 10/30/24325 PLAN Plan: We continue to follow blood cultures Continued on Zosyn Continue to monitor potassium levels, replace per protocol Patients platelets have been declining, Heme-Onc consulted Continue to follow ID recommendations Follow up on Stool culture and PCR Follow up on HIV 1/2 test with reflex, CD4 count GI pending Levothyroxine resumed Order CT neck NEURO: Minimize central acting medications as possible. Fall Precautions. Well lighted room through the day and minimize interruptions through the night to prevent acute delirium. PULMONARY: Supplemental 02 as needed Titrate Fio2 to keep Spo2 > or = 90% DuoNebs and CPT as needed IS hourly while awake for pulmonary hygiene Out of bed to chair as tolerated VAP Bundle Vent/BIPAP Settings: [ ] Driving pressure: [ ] P Plat: [ ] Static C: [ ] Static R: [ ] P/F Ratio: [ ] CARDIOVASCULAR: Follow hemodynamics. Titrate vasopressor to keep MAP >65 or systolic blood pressure >95mmHg DIPS: [ ] LINES: [ ] GI & NUTRITION: Continue nutritional support Aspirations precautions Prokinetic agents and laxatives as needed KIDNEYS & ELECTROLYTES: Strict monitoring of intake and output Daily weights Avoid nephrotoxic agents Monitor electrolytes and replace as needed Goal urine output of 30mL/hr or 0.5mL/kg/hr Urine output: [ ] Fluid Balance: [ ] ENDOCRINE: Maintain blood glucose between 100-180 at all times. Insulin sliding scale for blood glucose management INFECTIOUS DISEASE: Trend temperature. Norris-culture if febrile. Micro: [ ] Antibiotics: [ ] HEMATOLOGY & COAGULATION: Monitor H&H. Keep Hgb > 7 Transfuse 1 unit of PRBC for Hgb < 7 Transfuse 1 pack of platelets of platelets < 20, 000 Watch for any signs and symptoms of bleeding SKIN: Pressure ulcer prevention per facility protocol Rehab: PT/OT Prophylaxis: GI: [ ] DVT: [ ] Code Status: Full Resuscitation Disposition: [ ] Other: Total patient care time exceeds 35 minutes excluding all procedures. Case was discussed and seen with my supervising physician. The above plan was formulated and agreed upon. ATTESTATION BY PHYSICIAN I have seen and examined the patient. I reviewed the documentation, medical decision making, and treatment plan as noted by the resident provider above. I agree with the findings and plan of care. Jerald Rooney MD, NEHA MD Oct 31, 2024 11:21
[2024-10-31 11:24] LABS: CREATININE 0.5 mg/dL (0.5-1.0); GLOMERULAR FILTR. RATE CALC 107.0 mL/min (>90); GLUCOSE,RANDOM 108.0 mg/dL (70-105); SODIUM SERUM 141.0 mmol/L (136-145); UREA NITROGEN, BLOOD 4.0 mg/dL (7-18)
--- NOTE | 2024-10-31 11:40 | NUR ---
DCP: HOME with family Sw met with pt and her Darren Lamar [phone]. Per pt, she works at [employer], drives, is active, remains able to complete home management, cooking and laundry on her own. Pt uses no DME, HH or HD services. Couple has no issues at this time with affording home, utilities or food. PCP is Stephenie Laureano and pt uses [facility] in [place] for rx needs. Discussed dc needs. Pt denies need for referral, will return home at dc Addendum: 10/31/24 at 1145 by TARA ROLDAN Amended: Links added.
[2024-10-31 11:57] VITALS: BP 121/55; PULSE 73; RESP 17; TEMP 98.7
--- NOTE | 2024-10-31 15:33 | CONS ---
GASTROENTEROLOGY CONSULTATION NOTE Date of Consultation: Oct 31, 2024 Time of Consultation: 15:31 History of Present Ilness This is a 59-year-old female patient who presented to the emergency room with complaints of dizziness, weakness, chills, cough with congestion. Patient reports having diarrhea for the past four months. WBC of 4.2, hemoglobin 10.0, platelets 117. Chemistries significant for BUN of four glucose 108, total calcium 7.9, total bilirubin 1.2, AST and ALT are normal, alkaline phos 82, CRP 45, albumin 3.0. 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 Mild heterogenous course attenuation of the liver, probably changes of liver parenchymal disease. Borderline splenomegaly. 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 No acute cardiopulmonary pathology is evident. 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 On exam patient patient is sitting in bed in no acute distress. Her respirations are even and unlabored. Bilateral breath sounds are clear. Abdomen is soft and nondistended. Active bowel sounds present. Patient reports having loose stools for the past four months she reports having had colonoscopy four months ago and all was negative recommendations to repeat colonoscopy given due to her symptoms. Patient agreed to proceed.] Review of Systems: CONSTITUTIONAL: No malaise or change in sensation of wellbeing. ENMT: No rhinorrhea, otorrhea, sinus pain, ear ache. CARDIOVASCULAR: No angina, palpitations, orthopnea or paroxysmal dyspnea. RESPIRATORY: No SOB. GASTROINTESTINAL: No abdominal pain, nausea, vomiting, diarrhea, hematemesis, melena or change in the patient's habitual bowel movements consistency/number. GENITOURINARY: No dysuria, hematuria or change in bladder continence. MUSCULOSKELETAL: No new muscle pain or decrease in muscular strength. No new joint swelling, redness or tenderness. SKIN: No new rash. Past Medical History: Diabetes mellitus ADDITIONAL PAST MEDICAL HISTORY: [Denies] SOCIAL HISTORY: [Negative for smoking, alcohol use, drug use. Patient lives with the , Darren Lamar. Patient is typically independent of all her ADLs. Patient denies difficulty paying her bills.] SURGICAL HISTORY: [Bilateral total knee replacement, BTL, lithotripsy] Family hx Mother, Coded Allergies: meloxicam (Unverified Allergy, Unknown, 08/29/24) omeprazole (Unverified Allergy, Unknown, 08/29/24) Physical Exam: GEN: Awake, alert, oriented in person, time and place, and in no acute distress. HEENT: . Oral pharyngeal mucosa is pink, moist and within normal limits. CHEST: Inspection, palpation of the chest were unremarkable. Lung auscultation revealed normal breath sounds bilaterally. CARDIAC: PMI is within normal limits. Heart sounds are regular. ABD: Soft, non-tender and not distended. No peritoneal signs on palpation. No organomegaly. Normal bowel sounds. EXT: No cyanosis or clubbing. No edema. SKIN: Intact. No rashes. JOINTS: No evidence of synovitis or acute arthritis. NEURO: Alert and oriented to name, place and person. No focal motor deficits. Normal speech. Strength is normal. Vital Sign (Last 24 Hours) 10/31/24 10/31/24 08:00 11:57 Temp 98.8 Pulse 73 Resp 17 B/P (MAP) 121/55 Pulse Ox 99 O2 Delivery Room Air O2 Flow Rate 0 FiO2 21 Intake & Output (last 24hrs) 10/30/24 10/30/24 10/31/24 15:00 23:00 07:00 Intake Total 475.0 ml 1012.5 ml 800.0 ml Output Total 600 ml Balance -125.0 ml 1012.5 ml 800.0 ml Laboratory: [ ] Laboratory: Test 10/31/24 10:49 10/31/24 03:57 10/30/24 18:05 10/30/24 17:00 Range/Units Sodium Level 141 136-145 mmol/L Potassium Level 3.7 3.5-5.1 mmol/L Chloride Level 107 101-111 mmol/L Carbon Dioxide Level 29 21-32 mmol/L Blood Urea Nitrogen 4 L 7-18 mg/dL Creatinine 0.5 0.5-1.0 mg/dL Glomerular Filtration Rate Calc 107 >90 mL/min Random Glucose 108 H 70-105 mg/dL Total Calcium 7.9 L 8.5-10.1 mg/dL Magnesium Level 2.20 1.80-2.40 mg/dL White Blood Count 4.2 #L 4.8-10.8 K/uL Red Blood Count 3.46 L 4.00-5.50 MIL/uL Hemoglobin 10.0 L 12.0-16.0 g/dL Hematocrit 29.9 L 36-48 % Mean Corpuscular Volume 86.4 79-99 fL Mean Corpuscular Hemoglobin 28.9 27.0-33.0 pg Mean Corpuscular Hemoglobin Concent 33.4 32.0-36.0 g/dL Red Cell Distribution Width 14.8 11.0-15.5 % Platelet Count 117 L 130-400 K/uL Mean Platelet Volume 10.0 7.5-10.5 fL Immature Granulocyte % (Auto) 0.2 0-1 % Neutrophils (%) (Auto) 70.1 40.0-77.0 % Lymphocytes (%) (Auto) 17.7 L 21.0-51.0 % Monocytes (%) (Auto) 10.3 3.0-13.0 % Eosinophils (%) (Auto) 1.2 0.0-8.0 % Basophils (%) (Auto) 0.5 0.0-5.0 % Neutrophils # (Auto) 2.9 1.8-7.7 K/uL Lymphocytes # (Auto) 0.7 L 1.0-4.8 K/uL Monocytes # (Auto) 0.4 0.1-1.0 K/uL Eosinophils # (Auto) 0.05 0.00-0.70 K/uL Basophils # (Auto) 0.02 0.00-0.20 K/uL Absolute Immature Granulocyte (auto 0.01 0-1 K/uL Nucleated Red Blood Cells 0.0 0.0-0.19 % Lactic Acid Level 0.8 0.8-2.5 mmol/L Phosphorus Level 2.4 L 2.5-4.9 mg/dL Total Bilirubin 1.2 H 0.2-1.0 mg/dL Aspartate Amino Transf (AST/SGOT) 34 10-37 U/L Alanine Aminotransferase (ALT/SGPT) 32 # 12-78 U/L Alkaline Phosphatase 82 50-136 U/L C-Reactive Protein, Quantitative 45.00 H 0.5-3.0 mg/L Total Protein 6.3 6.0-8.3 g/dL Albumin 3.0 L 3.5-5.0 g/dL Procalcitonin 6.94 H 0.05-0.5 ng/mL HIV (1&2) Antibody Preliminary Positive *A Negative HIV P24 Antigen, Qualitative Preliminary Positive *A Negative Stool Occult Blood POSITIVE H NEGATIVE Stool Lactoferrin (ZORAIDA) POSITIVE H NEGATIVE Test 10/30/24 10:13 10/30/24 04:56 10/30/24 01:58 10/30/24 00:54 Range/Units Thyroid Stimulating Hormone (TSH) 2.03 # 0.36-3.74 uIU/mL Hemoglobin A1c 4.6 4.0-6.0 % Estimated Average Glucose (eAG) 85 70-126 mg/dL Urine Color LIGHT-YELLOW YELLOW Urine Appearance CLEAR CLEAR Urine pH 5.0 5.0-8.0 Urine Specific [place] 1.007 1.001-1.031 Urine Protein NEGATIVE NEGATIVE mg/dL Urine Glucose (UA) NEGATIVE NEGATIVE mg/dL Urine Ketones NEGATIVE NEGATIVE mg/dL Urine Occult Blood NEGATIVE NEGATIVE Urine Nitrate NEGATIVE NEGATIVE Urine Bilirubin NEGATIVE NEGATIVE mg/dL Urine Urobilinogen 0.2 0.2-1.0 mg/dL Urine Leukocyte Esterase 75 H NEGATIVE Uriel/uL Urine RBC 2-5 H 0-1 /HPF Urine WBC 11-25 H 0-1 /HPF Urine Squamous Epithelial Cells RARE 0-2 /HPF Urine Bacteria RARE None Seen /HPF Urine Random Creatinine 30.60 30-135 mg/dL Urine Random Potassium 12 L 25-125 mmol/L Urine Random Chloride 125 110-250 mmol/L White Cell Morphology Comment See comments Total Creatine Kinase 261 H 21-232 U/L Influenza Type A Antigen Negative For Type A NEGATIVE Influenza Type B Antigen Negative For Type B NEGATIVE SARS-CoV-2 Antigen (Rapid) PRESUMPTIVE NEGATIVE NEGATIVE Group A Streptococcus Rapid negative NEGATIVE Current Medications Medications (Trade) Dose Ordered Sig/Vinod Route PRN Reason Start Time Stop Time Status Last Admin Dose Admin Acetaminophen (TYLenol 325MG TAB) 650 mg Q6H PRN PO TEMPERATURE GREATER THAN 101.5 10/30/24 04:00 11/29/24 03:59 10/30/24 13:35 650 MG Enoxaparin Sodium (Lovenox) 40 mg DAILY SQ 10/30/24 09:00 11/29/24 08:59 10/31/24 08:05 40 MG Famotidine (Pepcid 20mg Tab) 20 mg DAILY PO 10/30/24 09:00 11/29/24 08:59 10/31/24 08:02 20 MG Hydralazine HCl (APRESOLine 20MG INJ) 10 mg Q6H PRN IV For:SBP above 160;DBP above 90 10/30/24 04:00 11/29/24 03:59 Lactated Ringer's 1,000 ml @ 75 mls/hr [id number] IV 10/30/24 04:00 10/30/24 11:29 DC 10/30/24 05:43 75 MLS/HR Levothyroxine Sodium (SYNTHroid 100MCG TAB) 100 mcg SYN PO 11/01/24 09:00 12/01/24 08:59 Magnesium Sulfate 50 ml @ 0 mls/hr PROTOCOL PRN IV h 10/30/24 04:00 11/29/24 03:59 10/31/24 08:05 25 MLS/HR Morphine Sulfate (morPHINE 2MG SYG) 2 mg Q4H PRN IVP SEVERE PAIN (7-10) 10/30/24 04:00 11/06/24 03:59 Ondansetron HCl (zoFRAN 4MG INJ) 4 mg Q6H PRN IV NAUSEA/VOMITING 10/30/24 04:00 11/29/24 03:59 Piperacillin Sod/ Tazobactam Sod (Zosyn 3.375gm+NS 50ml) 3.375 gm Q8H IV 10/30/24 12:00 11/09/24 11:59 10/31/24 11:09 3.375 GM Potassium Chloride 10 meq/ Sodium Chloride 50 ml @ 50 mls/hr PROTOCOL IV 10/30/24 02:00 10/30/24 01:55 DC Potassium Chloride/Sodium Chloride 1,000 ml @ 100 mls/hr Q10H IV 10/30/24 05:00 10/30/24 11:29 DC 10/30/24 05:42 100 MLS/HR Potassium Chloride/Sodium Chloride 1,000 ml @ 100 mls/hr Q10H IV 10/30/24 17:00 11/29/24 16:59 10/31/24 11:45 100 MLS/HR Potassium Chloride 100 ml @ 100 mls/hr AD PRN IV POTASSIUM PROTOCOL 10/30/24 02:00 11/29/24 01:59 10/31/24 01:11 100 MLS/HR Potassium Chloride (K-Dur/Klor-Con 20meq) 20 meq AD PRN PO POTASSIUM PROTOCOL 10/30/24 05:00 11/29/24 04:59 10/31/24 11:43 20 MEQ Potassium Chloride (KCl 10% Elixir 20meq/15ml) 20 meq AD PRN PO POTASSIUM PROTOCOL 10/30/24 05:00 11/29/24 04:59 10/30/24 05:42 20 MEQ Diagnostics / Radiology: [COPY/PASTE HERE IF NO REPORTS PLEASE DELETE SECTION] Assessment: Diarrhea [Hyperbilirubinemia Enterocolitis HIV ] Plan: Case discussed with Dr. Jean-Baptiste [Clear fluids today NPO after midnight Tap water enemas x 2 at 2000 and repeat at 0500 Plan for Colonoscopy in am--Risks and benefits of procedure explained to patient. All her questions were answered and she agreed to proceed with exam. Please call with questions, concerns, and change in clinical status. ] FRANDY JONES NP Oct 31, 2024 15:33
[2024-10-31 16:00] VITALS: BP 112/72; PULSE 72; RESP 15; TEMP 98.8
--- NOTE | 2024-10-31 16:02 | PN ---
[facility] PROGRESS NOTE Date of Service: Oct 31, 2024 Time of Service: 15:47 SUBJECTIVE: 59 year old female with PMH of osteoarthritis (s/p R and L total knee arthroplasty ),hypothyroidism , hypokalemia ,covid infection(August 2024), chronic diarrhea (>1 year, under evaluation ) presented to ER with c/o fever, chills , cough, palpitations and generalized weakness. Patient reports that she has been experiencing chest pain and palpitations on a daily basis . She has at least a 10 watery bowel movements (bloody occasionally )a day for the past1 year and she had underwent extensive evaluation including colonoscopy and EGDscopy elsewhere without any an established diagnosis. She also states that she has lost at least 50 lbs in past 1 year. 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 She attributes her coughing to this. She denies smoking, alcohol or drug abuse. At the time of presentation her temperature was 102 F, heart rate 106, respiratory rate 19, blood pressure 130/75, SpO2 100% on room air. Labs were remarkable for WBC 8.2, hemoglobin 12.1, lactic acid 2.1, potassium 1.9, magnesium 1.3, bilirubin 1.5, AST 62, procalcitonin 7.47, CK 261. EKG showed normal sinus rhythm with a nonspecific STT wave changes. CT abdomen and pelvis showed acute enterocolitis with a right diaphragmatic eventration, liver parenchymal disease, splenomegaly and prominent dilated ileo renal collaterals into left renal vein. She was admitted for further evaluation and management of sepsis and severe hypokalemia. 10/30/2024: Patient is seen and evaluated at her bedside. She states that she is feeling comparatively better. Febrile, temperature 100.2, pulse rate83 , respiratory rate18 , blood pressure 113/71, SpO2 97% room air. Labs showed downtrending lactic acid from 2.1-1.3. Potassium levels are improved to 2.6 with potassium supplementation. Pending Infectious Disease, Gastroenterology, Cardiology consults. 10/31/2024: Patient was seen and evaluated at the bedside in room 209. Patient is alert, awake, and oriented. Her vitals are stable. Patient endorses that she is doing well compared to when she was admitted. She has no active comp laints and stated that she has started eating food today. Infectious diseases was consulted who recommended sending the stools for PCR, and Tropheryma. Gastroenterology, Cardiology consults pending. REVIEW OF SYSTEMS CONSTITUTIONAL: Positive for fever, chills,, in unintentional weight loss. NEUROLOGICAL: Denies headache, , motor weakness, sensory deficit, vertigo/spinning sensation, gait abnormalities, or tremors. ENT: No hearing loss, otalgia, otorrhea, rhinitis, rhinorrhea, hoarseness, or sore throat. CARDIOVASCULAR: Denies any exertional angina, dyspnea on exertion, orthopnea, paroxysmal nocturnal dyspnea, positive for palpitation PULMONARY: Denies any shortness of breath, positive for cough, hemoptysis, pleuritic chest pain. SLEEP: Denies morning headaches, daytime somnolence or napping. Denies difficulty falling asleep, staying asleep, waking from sleep. Denies knowledge of snoring. GASTROINTESTINAL: Positive for difficulty in swallowing, loose stools GENITOURINARY: Denies dysuria, hematuria, incontinence ENDOCRINOLOGIC: Denies polyuria, polydipsia, polyphagia or heat/cold intolerances. HEMATOLOGIC: Denies thrombophilia/previous clots, or coagulopathy/bleeding disorders. ONCOLOGIC: Denies personal history of malignancy. DERMATOLOGIC: Denies rashes or pruritus. PSYCHIATRIC: Denies any suicidal or homicidal ideation. Denies hallucinations. PHYSICAL EXAM GENERAL APPEARANCE: The patient is awake, alert, and oriented, in no acute cardiopulmonary distress. NEUROLOGICAL: Cranial nerves II-XII grossly intact. Motor is 5/5 in bilateral upper and lower extremities proximal to distal. No sensory deficits. HEENT: Face is symmetric. Pupils are equal and reactive. Extraocular movements are intact. NECK: Supple. No JVD. No thyromegaly. No submental, submandibular, pre- /postauricular, occipital or supraclavicular lymphadenopathy. CHEST: Normal chest expansion. No Telemetry. LUNGS: Absence of any rales, rhonchi or any wheezing. CARDIOVASCULAR: Regular. S1 and S2 normal. No appreciable rubs, murmurs or gallops. ABDOMEN: Soft, nontender, and nondistended. There is no rebound, voluntary guarding, or rigidity. : Deferred. No Chauhan. EXTREMITIES: Non-edematous and not cyanotic. No clubbing. Good capillary refill. SKIN: No skin breakdown. Vital Signs (last 8hr) Date Time Temp Pulse Resp B/P (MAP) Pulse Ox O2 Delivery O2 Flow Rate FiO2 10/31/24 11:57 98.8 73 17 121/55 99 Room Air 10/31/24 08:00 99.1 75 23 104/67 99 10/31/24 08:00 99 Room Air* 0 21 LABS: Laboratory: Test 10/31/24 10:49 10/31/24 03:57 10/30/24 18:05 10/30/24 17:00 Range/Units Sodium Level 141 136-145 mmol/L Potassium Level 3.7 3.5-5.1 mmol/L Chloride Level 107 101-111 mmol/L Carbon Dioxide Level 29 21-32 mmol/L Blood Urea Nitrogen 4 L 7-18 mg/dL Creatinine 0.5 0.5-1.0 mg/dL Glomerular Filtration Rate Calc 107 >90 mL/min Random Glucose 108 H 70-105 mg/dL Total Calcium 7.9 L 8.5-10.1 mg/dL Magnesium Level 2.20 1.80-2.40 mg/dL White Blood Count 4.2 #L 4.8-10.8 K/uL Red Blood Count 3.46 L 4.00-5.50 MIL/uL Hemoglobin 10.0 L 12.0-16.0 g/dL Hematocrit 29.9 L 36-48 % Mean Corpuscular Volume 86.4 79-99 fL Mean Corpuscular Hemoglobin 28.9 27.0-33.0 pg Mean Corpuscular Hemoglobin Concent 33.4 32.0-36.0 g/dL Red Cell Distribution Width 14.8 11.0-15.5 % Platelet Count 117 L 130-400 K/uL Mean Platelet Volume 10.0 7.5-10.5 fL Immature Granulocyte % (Auto) 0.2 0-1 % Neutrophils (%) (Auto) 70.1 40.0-77.0 % Lymphocytes (%) (Auto) 17.7 L 21.0-51.0 % Monocytes (%) (Auto) 10.3 3.0-13.0 % Eosinophils (%) (Auto) 1.2 0.0-8.0 % Basophils (%) (Auto) 0.5 0.0-5.0 % Neutrophils # (Auto) 2.9 1.8-7.7 K/uL Lymphocytes # (Auto) 0.7 L 1.0-4.8 K/uL Monocytes # (Auto) 0.4 0.1-1.0 K/uL Eosinophils # (Auto) 0.05 0.00-0.70 K/uL Basophils # (Auto) 0.02 0.00-0.20 K/uL Absolute Immature Granulocyte (auto 0.01 0-1 K/uL Nucleated Red Blood Cells 0.0 0.0-0.19 % Lactic Acid Level 0.8 0.8-2.5 mmol/L Phosphorus Level 2.4 L 2.5-4.9 mg/dL Total Bilirubin 1.2 H 0.2-1.0 mg/dL Aspartate Amino Transf (AST/SGOT) 34 10-37 U/L Alanine Aminotransferase (ALT/SGPT) 32 # 12-78 U/L Alkaline Phosphatase 82 50-136 U/L C-Reactive Protein, Quantitative 45.00 H 0.5-3.0 mg/L Total Protein 6.3 6.0-8.3 g/dL Albumin 3.0 L 3.5-5.0 g/dL Procalcitonin 6.94 H 0.05-0.5 ng/mL HIV (1&2) Antibody Preliminary Positive *A Negative HIV P24 Antigen, Qualitative Preliminary Positive *A Negative Stool Occult Blood POSITIVE H NEGATIVE Stool Lactoferrin (ZORAIDA) POSITIVE H NEGATIVE Test 10/30/24 10:13 10/30/24 04:56 10/30/24 01:58 10/30/24 00:54 Range/Units Thyroid Stimulating Hormone (TSH) 2.03 # 0.36-3.74 uIU/mL Hemoglobin A1c 4.6 4.0-6.0 % Estimated Average Glucose (eAG) 85 70-126 mg/dL Urine Color LIGHT-YELLOW YELLOW Urine Appearance CLEAR CLEAR Urine pH 5.0 5.0-8.0 Urine Specific [place] 1.007 1.001-1.031 Urine Protein NEGATIVE NEGATIVE mg/dL Urine Glucose (UA) NEGATIVE NEGATIVE mg/dL Urine Ketones NEGATIVE NEGATIVE mg/dL Urine Occult Blood NEGATIVE NEGATIVE Urine Nitrate NEGATIVE NEGATIVE Urine Bilirubin NEGATIVE NEGATIVE mg/dL Urine Urobilinogen 0.2 0.2-1.0 mg/dL Urine Leukocyte Esterase 75 H NEGATIVE Uriel/uL Urine RBC 2-5 H 0-1 /HPF Urine WBC 11-25 H 0-1 /HPF Urine Squamous Epithelial Cells RARE 0-2 /HPF Urine Bacteria RARE None Seen /HPF Urine Random Creatinine 30.60 30-135 mg/dL Urine Random Potassium 12 L 25-125 mmol/L Urine Random Chloride 125 110-250 mmol/L White Cell Morphology Comment See comments Total Creatine Kinase 261 H 21-232 U/L Influenza Type A Antigen Negative For Type A NEGATIVE Influenza Type B Antigen Negative For Type B NEGATIVE SARS-CoV-2 Antigen (Rapid) PRESUMPTIVE NEGATIVE NEGATIVE Group A Streptococcus Rapid negative NEGATIVE Current Medications Medications (Trade) Dose Ordered Sig/Vinod Route PRN Reason Start Time Stop Time Status Last Admin Dose Admin Acetaminophen (TYLenol 325MG TAB) 650 mg Q6H PRN PO TEMPERATURE GREATER THAN 101.5 10/30/24 04:00 11/29/24 03:59 10/30/24 13:35 650 MG Enoxaparin Sodium (Lovenox) 40 mg DAILY SQ 10/30/24 09:00 11/29/24 08:59 10/31/24 08:05 40 MG Famotidine (Pepcid 20mg Tab) 20 mg DAILY PO 10/30/24 09:00 11/29/24 08:59 10/31/24 08:02 20 MG Hydralazine HCl (APRESOLine 20MG INJ) 10 mg Q6H PRN IV For:SBP above 160;DBP above 90 10/30/24 04:00 11/29/24 03:59 Lactated Ringer's 1,000 ml @ 75 mls/hr [id number] IV 10/30/24 04:00 10/30/24 11:29 DC 10/30/24 05:43 75 MLS/HR Levothyroxine Sodium (SYNTHroid 100MCG TAB) 100 mcg SYN PO 11/01/24 09:00 12/01/24 08:59 Magnesium Sulfate 50 ml @ 0 mls/hr PROTOCOL PRN IV h 10/30/24 04:00 11/29/24 03:59 10/31/24 08:05 25 MLS/HR Morphine Sulfate (morPHINE 2MG SYG) 2 mg Q4H PRN IVP SEVERE PAIN (7-10) 10/30/24 04:00 11/06/24 03:59 Ondansetron HCl (zoFRAN 4MG INJ) 4 mg Q6H PRN IV NAUSEA/VOMITING 10/30/24 04:00 11/29/24 03:59 Piperacillin Sod/ Tazobactam Sod (Zosyn 3.375gm+NS 50ml) 3.375 gm Q8H IV 10/30/24 12:00 11/09/24 11:59 10/31/24 11:09 3.375 GM Polyethylene Glycol/ Electrolytes (Golytely/Colyte Soln) 4,000 ml ONCE PO 10/31/24 16:00 10/31/24 23:00 Potassium Chloride 10 meq/ Sodium Chloride 50 ml @ 50 mls/hr PROTOCOL IV 10/30/24 02:00 10/30/24 01:55 DC Potassium Chloride/Sodium Chloride 1,000 ml @ 100 mls/hr Q10H IV 10/30/24 05:00 10/30/24 11:29 DC 10/30/24 05:42 100 MLS/HR Potassium Chloride/Sodium Chloride 1,000 ml @ 100 mls/hr Q10H IV 10/30/24 17:00 11/29/24 16:59 10/31/24 11:45 100 MLS/HR Potassium Chloride 100 ml @ 100 mls/hr AD PRN IV POTASSIUM PROTOCOL 10/30/24 02:00 11/29/24 01:59 10/31/24 01:11 100 MLS/HR Potassium Chloride (K-Dur/Klor-Con 20meq) 20 meq AD PRN PO POTASSIUM PROTOCOL 10/30/24 05:00 11/29/24 04:59 10/31/24 11:43 20 MEQ Potassium Chloride (KCl 10% Elixir 20meq/15ml) 20 meq AD PRN PO POTASSIUM PROTOCOL 10/30/24 05:00 11/29/24 04:59 10/30/24 05:42 20 MEQ DIAGNOSTICS / RADIOLOGY: [address] [address] IMAGING REPORT Signed PATIENT: ENRIQUE NUÑEZ MR#: [id number] : 1965 SEX: F AGE: 59 LOCATION: [facility] ORDER STATUS: ADM IN REPORT#: [id number] SERVICE 0 REASON: chronic diarrhea fever ORDERING PHYSICIAN: BLAIR FAUST MD PROCEDURE: ABD PEL W - CT ABDOMEN/PELVIS W/CONTRAST EXAM: CT Abdomen and Pelvis with IV contrast CLINICAL HISTORY: Chronic diarrhea. TECHNIQUE: Thin collimated axial CT images of the abdomen and pelvis were obtained, with sagittal and coronal reformatted images also submitted. A CT scan is done according to ALARA (As Low As Reasonably Achievable). CONTRAST: Contrast information is not available. COMPARISON: None. FINDINGS: Unremarkable visualized lung parenchyma. 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 Mild heterogeneous coarse attenuation of the liver, probably changes of liver parenchymal disease. Borderline splenomegaly. Prominent dilated lienorenal collaterals ending into the left renal vein. Post cholecystectomy status. No obvious focal lesion in the adrenal glands, pancreas, or the kidneys. No focal abnormality within the liver, gallbladder, pancreas, spleen, adrenals, or kidneys. Nondilated fluid-filled small and large bowel loops with mild diffuse mucosal thickening, concerning acute enterocolitis. 0.6 cm enhancing focus around the anal region, could be hemorrhoid. Mild hiatus hernia. No features of bowel obstruction or ileus. The appendix is normal. There is no abnormality within the urinary bladder. Unremarkable reproductive organs. Abdominal and pelvic vessels are patent. Minimal atherosclerotic calcification of the infrarenal aorta and bilateral common iliac arteries. No lymphadenopathy. No free fluid. There is no acute osseous abnormality. Mild degenerative changes in the sacroiliac, superolateral joint, and multilevel degenerative facet arthropathy. IMPRESSIONS: Mild acute enterocolitis. Questionable mild hemorrhoids. Mild hiatus hernia. 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 Mild heterogeneous coarse attenuation of the liver, probably changes of liver parenchymal disease. Borderline splenomegaly. Prominent dilated lienorenal collaterals ending into the left renal vein. No focal lesion in the pancreas or features of pancreatitis. /[place] DICTATED BY: ERICKA DALEY Jr., MD DATE: 10/30/24543 ELECTRONICALLY SIGNED BY: ERICKA DALEY Jr., MD DATE: 10/30/24543 [facility] [address] [place], [place] [address] IMAGING REPORT Signed PATIENT: ENRIQUE NUÑEZ MR#: [id number] : 1965 SEX: F AGE: 59 LOCATION: [facility] ORDER 1657 STATUS: ADM IN REPORT#: [id number] SERVICE 1631 REASON: C/C COUGH, WEIGHT LOSS ORDERING PHYSICIAN: VELASQUEZ PINEDA MD PROCEDURE: CHEST WO - CT CHEST W/O CONTRAST EXAM: CT Chest Without Contrast. CLINICAL HISTORY: Cough and weight loss. TECHNIQUE: Thin collimated axial CT images of the chest were obtained, with sagittal and coronal reformatted images also submitted. CT scan done according to ALARA (As Low as Reasonably Achievable). CONTRAST USED: None. COMPARISON: X-ray dated October 30, 2024. FINDINGS: Mild atelectasis in the right basal segment. No collapse or consolidation. No pulmonary nodules. No pleural effusions. No pericardial effusion. The heart size is within normal limits. Mild calcification of the coronary arteries with mild atherosclerotic changes in the aorta. No axillary, supraclavicular, or mediastinal lymphadenopathy. No focal thyroid abnormality. 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 No acute or suspicious osseous abnormality. IMPRESSION: 1. No pulmonary infiltrate or effusion. 2. No suspicious lung nodule. Lung RADS category 1. Continue annual screening with LDCT. 3. 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 4. Mild coronary artery disease with atherosclerosis. /[place] DICTATED BY: CHAD LILLY MD DATE: 10/31/24850 ELECTRONICALLY SIGNED BY: CHAD LILLY MD DATE: 10/31/24850 [facility] [address] [place], [place] [id number] IMAGING REPORT Signed PATIENT: NERIQUE NUÑEZ MR#: [id number] : 1965 SEX: F AGE: 59 LOCATION: H ORDER 165 STATUS: [facility] REPORT#: [id number] SERVICE 1639 REASON: HISTORY OF ?NECK MASSES ,DYSPHAGIA ORDERING PHYSICIAN: VELASQUEZ PINEDA MD PROCEDURE: SOFT NECK - US SOFT TISSUE NECK EXAMINATION: SOFT TISSUE ULTRASOUND OF THE NECK. CLINICAL HISTORY: Neck mass and dysphagia. COMPARISON: CT chest without contrast from the same day. TECHNIQUE: Transverse and longitudinal images were obtained in the neck. FINDINGS: There are lymph nodes that measure 0.4 x 0.4 x 0.5 cm, 0.8 x 0.5 x 1.1 cm, 0.4 x 0.2 x 0.3 cm in the right side of the neck and 0.7 x 0.4 x 0.8 cm, 0.9 x 1.0 x 0.5 cm in the left side of the neck. Hilar echoes are maintained. No increased vascularity. IMPRESSION: Bilateral cervical lymph nodes. Recommend CT neck with contrast for further evaluation. /[place] DICTATED BY: CHAD LILLY MD DATE: 10/31/24716 ELECTRONICALLY SIGNED BY: CHAD LILLY MD DATE: 10/31/24716 ASSESSMENT: Severe hypokalemia, POA Sepsis, POA Acute cystitis POA Chronic Diarrhea Hypothyroidism Severe Protein calorie malnutrition, POA PLAN: Severe hypokalemia, secondary to chronic diarrhea and poor oral intake POA - Serum potassium today is 3.7 Improved from 1.9 on admission. - Random urine potassium 12 millimoles per L - Potassium replacement protocol in place - Magnesium replacement protocol in place - Continue telemetry Sepsis, POA Unknown source - ID recommended fecal PCR and stool for Tropheryma - Continue IV Zosyn (day 1) - Critical Care on board Acute cystitis POA -urine culture showed no growth -continue IV Zosyn (day 1) - Chronic Diarrhea - (RN)will fax stool electrolytes to the lab for fecal osmolality . - Pending GI consult - Pending fecal fat quantitative Hypothyroidism TSH within normal limits continue home medication Other: Patient complaining of cough we will do a bedside swallow evaluation;we will Request a CT chest. Differential diagnosis not limited to medullary thyroid cancer, disseminated tuberculosis, lymphoma, vipoma, chronic hepatitis - pending calcitonin level, HIV reflex study, ultrasound soft tissue neck. ATTESTATION BY PHYSICIAN I have seen and examined the patient. I reviewed the documentation, medical decision making, and treatment plan as noted by the resident provider above. I agree with the findings and plan of care. Ezra Veronica MD, HEMA MD Oct 31, 2024 16:01
--- NOTE | 2024-10-31 17:30 | NUR ---
BEDSIDE SWALLOW EVAL COMPLETED. No s/s of aspiration with thin liquids (pt currently on clear liquid diet pending procedure). Recommend thin liquids. ANTHROPOMETRIST reviewed results and recommendations with patient and nurse Jones. ANTHROPOMETRIST will return after procedure tomorrow to evaluate with solids. ANTHROPOMETRIST educated patient on risks and consequences of aspiration. All questions answered. Addendum: 11/01/[address] [facility] Amended: Links added.
[2024-10-31] MEDS: PEG 3350/NA SULF,BICARB,CL/KCL 4000 ML SOLN PO SCH (18:15)
[2024-10-31 20:00] VITALS: BP 126/77; PULSE 104; RESP 16; TEMP 98.9; O2SAT 97
--- NOTE | 2024-10-31 22:18 | PN ---
INFECTIOUS DISEASE PROGRESS NOTE Date of Service: Oct 31, 2024 SUBJECTIVE: This is a 59-year-old female patient who was seen and examined at bedside in room 209. Patient is awake, alert and oriented x3. visiting at bedside. Patient was updated with positive urinalysis results. Low-grade fever of 99.9 reported last evening but this morning patient is afebrile, temperature is 98.8. No nausea or vomiting at this time. We will continue on Zosyn IV and follow up on the final cultures results. PHYSICAL EXAM EYES: Anicteric. Pupils equal and reactive. HENT: No oral thrush seen, moist Oral mucosa. NECK: Supple, no JVD or thyromegaly. LUNGS: Good air entry. No rales, no rhonchi. CARDIOVASCULAR: S1, S2 regular. No murmur heard. ABDOMEN: Soft, non tender, bowel sounds present, no organomegaly. CENTRAL NERVOUS SYSTEM: Awake, alert, oriented x 3. SKIN: No rashes, no swelling. LYMPHATICS: No peripheral lymphadenopathy. MUSCULOSKELETAL: No joint swelling, erythema or tenderness. EXTREMITIES: No cyanosis or clubbing. BACK: No deformity, no pressure ulcer. GENITOURINARY: No dysuria or hematuria. Vital Sign (Last 12 Hours) 10/31/24 10/31/24 10/31/24 10/31/24 11:57 16:00 20:00 20:00 Temp 98.8 98.8 99.0 Pulse 73 72 104 Resp 17 15 16 B/P (MAP) 121/55 112/72 126/77 Pulse Ox 99 99 97 99 O2 Delivery Room Air Room Air Room Air* O2 Flow Rate 0 FiO2 21 Intake & Output (last 24hrs) 10/30/24 10/30/24 10/31/24 15:00 23:00 07:00 Intake Total 475.0 ml 1012.5 ml 800.0 ml Output Total 600 ml Balance -125.0 ml 1012.5 ml 800.0 ml LABS: Laboratory: Test 10/31/24 17:58 10/31/24 10:49 10/31/24 03:57 10/30/24 18:05 Range/Units Potassium Level 3.6 3.5-5.1 mmol/L Sodium Level 141 136-145 mmol/L Chloride Level 107 101-111 mmol/L Carbon Dioxide Level 29 21-32 mmol/L Blood Urea Nitrogen 4 L 7-18 mg/dL Creatinine 0.5 0.5-1.0 mg/dL Glomerular Filtration Rate Calc 107 >90 mL/min Random Glucose 108 H 70-105 mg/dL Total Calcium 7.9 L 8.5-10.1 mg/dL Magnesium Level 2.20 1.80-2.40 mg/dL White Blood Count 4.2 #L 4.8-10.8 K/uL Red Blood Count 3.46 L 4.00-5.50 MIL/uL Hemoglobin 10.0 L 12.0-16.0 g/dL Hematocrit 29.9 L 36-48 % Mean Corpuscular Volume 86.4 79-99 fL Mean Corpuscular Hemoglobin 28.9 27.0-33.0 pg Mean Corpuscular Hemoglobin Concent 33.4 32.0-36.0 g/dL Red Cell Distribution Width 14.8 11.0-15.5 % Platelet Count 117 L 130-400 K/uL Mean Platelet Volume 10.0 7.5-10.5 fL Immature Granulocyte % (Auto) 0.2 0-1 % Neutrophils (%) (Auto) 70.1 40.0-77.0 % Lymphocytes (%) (Auto) 17.7 L 21.0-51.0 % Monocytes (%) (Auto) 10.3 3.0-13.0 % Eosinophils (%) (Auto) 1.2 0.0-8.0 % Basophils (%) (Auto) 0.5 0.0-5.0 % Neutrophils # (Auto) 2.9 1.8-7.7 K/uL Lymphocytes # (Auto) 0.7 L 1.0-4.8 K/uL Monocytes # (Auto) 0.4 0.1-1.0 K/uL Eosinophils # (Auto) 0.05 0.00-0.70 K/uL Basophils # (Auto) 0.02 0.00-0.20 K/uL Absolute Immature Granulocyte (auto 0.01 0-1 K/uL Nucleated Red Blood Cells 0.0 0.0-0.19 % Lactic Acid Level 0.8 0.8-2.5 mmol/L Phosphorus Level 2.4 L 2.5-4.9 mg/dL Total Bilirubin 1.2 H 0.2-1.0 mg/dL Aspartate Amino Transf (AST/SGOT) 34 10-37 U/L Alanine Aminotransferase (ALT/SGPT) 32 # 12-78 U/L Alkaline Phosphatase 82 50-136 U/L C-Reactive Protein, Quantitative 45.00 H 0.5-3.0 mg/L Total Protein 6.3 6.0-8.3 g/dL Albumin 3.0 L 3.5-5.0 g/dL Procalcitonin 6.94 H 0.05-0.5 ng/mL HIV (1&2) Antibody Preliminary Positive *A Negative HIV P24 Antigen, Qualitative Preliminary Positive *A Negative Test 10/30/24 17:00 10/30/24 10:13 10/30/24 04:56 10/30/24 01:58 Range/Units Stool Occult Blood POSITIVE H NEGATIVE Stool Lactoferrin (ZORAIDA) POSITIVE H NEGATIVE Thyroid Stimulating Hormone (TSH) 2.03 # 0.36-3.74 uIU/mL Hemoglobin A1c 4.6 4.0-6.0 % Estimated Average Glucose (eAG) 85 70-126 mg/dL Urine Color LIGHT-YELLOW YELLOW Urine Appearance CLEAR CLEAR Urine pH 5.0 5.0-8.0 Urine Specific Home 1.007 1.001-1.031 Urine Protein NEGATIVE NEGATIVE mg/dL Urine Glucose (UA) NEGATIVE NEGATIVE mg/dL Urine Ketones NEGATIVE NEGATIVE mg/dL Urine Occult Blood NEGATIVE NEGATIVE Urine Nitrate NEGATIVE NEGATIVE Urine Bilirubin NEGATIVE NEGATIVE mg/dL Urine Urobilinogen 0.2 0.2-1.0 mg/dL Urine Leukocyte Esterase 75 H NEGATIVE Uriel/uL Urine RBC 2-5 H 0-1 /HPF Urine WBC 11-25 H 0-1 /HPF Urine Squamous Epithelial Cells RARE 0-2 /HPF Urine Bacteria RARE None Seen /HPF Urine Random Creatinine 30.60 30-135 mg/dL Urine Random Potassium 12 L 25-125 mmol/L Urine Random Chloride 125 110-250 mmol/L Test 10/30/24 00:54 Range/Units White Cell Morphology Comment See comments Total Creatine Kinase 261 H 21-232 U/L Influenza Type A Antigen Negative For Type A NEGATIVE Influenza Type B Antigen Negative For Type B NEGATIVE SARS-CoV-2 Antigen (Rapid) PRESUMPTIVE NEGATIVE NEGATIVE Group A Streptococcus Rapid negative NEGATIVE ASSESSMENT: Urinary tract infection. Possible infectious gastroenteritis. Hypokalemia. Hypothyroidism. Possible HIV infection. PLAN: Continue Zosyn. Continue GI prophylaxis. We will follow up on PCR and Tropheryma stool results results. Continue hypokalemia protocol. Continue pain management. Continue antiemetics. This case was reviewed and discussed with my supervising physician and the above assessment and plan was formulated and agreed upon. ATTESTATION BY PHYSICIAN I have seen and examined the patient. I reviewed the documentation, medical decision making, and treatment plan as noted by the mid-level provider above. I agree with the findings and plan of care. CRESCENCIO MOREJON MD, [facility] Oct 31, 2024 22:18
[2024-11-01] VITALS (8 sets, daily range): BP systolic 104–118; BP diastolic 62–74; PULSE 55–68; RESP 8–26; TEMP 97.5–98.9; O2SAT 98
[2024-11-01 05:47] LABS: CREATININE 0.5 mg/dL (0.5-1.0); GLOMERULAR FILTR. RATE CALC 107.0 mL/min (>90); GLUCOSE,RANDOM 86.0 mg/dL (70-105); SODIUM SERUM 144.0 mmol/L (136-145); UREA NITROGEN, BLOOD 4.0 mg/dL (7-18)
[2024-11-01 05:56] LABS: ASPARTATE AMINOTRANSFERASE 29.0 U/L (10-37); TOTAL PROTEIN, SERUM 7.0 g/dL (6.0-8.3)
[2024-11-01 06:10] LABS: IMMATURE GRANULOCYTE ABSOLUTE 0.01 K/uL (0-1); NUCLEATED RED BLOOD CELLS 0.0 % (0.0-0.19); PLATELET COUNT (AUTO) 142 K/uL (130-400); RED BLOOD CELL COUNT(AUTO) 3.90 MIL/uL (4.00-5.50); RED CELL DISTRIBUTION WIDTH 14.6 % (11.0-15.5); WHITE BLOOD COUNT (AUTO) 3.3 K/uL (4.8-10.8)
[2024-11-01 06:12] LABS: HIV SCREEN 4TH GENERATION Non Reactive (Non Reactive)
--- NOTE | 2024-11-01 10:39 | NUR ---
PATIENT TAKEN TO GI SUITE FOR PROCEDURE.
--- NOTE | 2024-11-01 11:51 | NUR ---
Patient returned from GI
--- NOTE | 2024-11-01 13:20 | NUR ---
SPEECH NOTE: MARKETING SUPPORT SPECIALIST coordinated with nurse Goldman for speech re-evaluation at bedside with solids. Pt is back from procedure; however, now placed NPO pending CT. MARKETING SUPPORT SPECIALIST will follow up tomorrow. All questions answered. Addendum: 11/01/[address] [facility] Amended: Links added.
[2024-11-01 15:14] LABS: ABSOLUTE CD4 COUNT 389 /uL (359-1519); LYMPHS % FOR CD4 COUNT 19 % (Not Estab.); LYMPHS ABS FOR CD4 COUNT 0.8 x10E3/uL (0.7-3.1); PERCENT CD4 CELLS 48.6 % (30.8-58.5); WBC FOR CD4 COUNT 4.1 x10E3/uL (3.4-10.8)
--- NOTE | 2024-11-01 15:19 | PN ---
[facility] PROGRESS NOTE Date of Service: Nov 01, 2024 Time of Service: 15:15 SUBJECTIVE: 59 year old female with PMH of osteoarthritis (s/p R and L total knee arthroplasty ),hypothyroidism , hypokalemia ,covid infection(August 2024), chronic diarrhea (>1 year, under evaluation ) presented to ER with c/o fever, chills , cough, palpitations and generalized weakness. Patient reports that she has been experiencing chest pain and palpitations on a daily basis . She has at least a 10 watery bowel movements (bloody occasionally )a day for the past1 year and she had underwent extensive evaluation including colonoscopy and EGDscopy elsewhere without any an established diagnosis. She also states that she has lost at least 50 lbs in past 1 year. 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 She attributes her coughing to this. She denies smoking, alcohol or drug abuse. At the time of presentation her temperature was 102 F, heart rate 106, respiratory rate 19, blood pressure 130/75, SpO2 100% on room air. Labs were remarkable for WBC 8.2, hemoglobin 12.1, lactic acid 2.1, potassium 1.9, magnesium 1.3, bilirubin 1.5, AST 62, procalcitonin 7.47, CK 261. EKG showed normal sinus rhythm with a nonspecific STT wave changes. CT abdomen and pelvis showed acute enterocolitis with a right diaphragmatic eventration, liver parenchymal disease, splenomegaly and prominent dilated ileo renal collaterals into left renal vein. She was admitted for further evaluation and management of sepsis and severe hypokalemia. 10/30/2024: Patient is seen and evaluated at her bedside. She states that she is feeling comparatively better. Febrile, temperature 100.2, pulse rate83 , respiratory rate18 , blood pressure 113/71, SpO2 97% room air. Labs showed downtrending lactic acid from 2.1-1.3. Potassium levels are improved to 2.6 with potassium supplementation. Pending Infectious Disease, Gastroenterology, Cardiology consults. 10/31/2024: Patient was seen and evaluated at the bedside in room 209. Patient is alert, awake, and oriented. Her vitals are stable. Patient endorses that she is doing well compared to when she was admitted. She has no active comp laints and stated that she has started eating food today. Infectious diseases was consulted who recommended sending the stools for PCR, and Tropheryma. Gastroenterology, Cardiology consults pending. 11/01/2024: Patient was seen and evaluated at the bedside in room 209. Patient is alert, awake, and oriented. she denies any active complaints today. Patient stated that she feels like her hands are swollen a little bit, she believes it is due to the fluids that she is getting. She has been placed on an NPO for anticipated colonoscopy today. Infectious Disease saw the patient, they recommended continuing with the current management and doing further workup for the cause of her chronic diarrhea. Patient had a preliminary positive HIV test which was ruled out today based on the subsequent testing. Her vitals are stable with a blood pressure of 104/68. Laboratory evaluation did not reveal any significant abnormalities. Cardiology consult pending. REVIEW OF SYSTEMS CONSTITUTIONAL: Alert, awake, no acute distress, oriented. NEUROLOGICAL: Denies headache, , motor weakness, sensory deficit, vertigo/spinning sensation, gait abnormalities, or tremors. ENT: No hearing loss, otalgia, otorrhea, rhinitis, rhinorrhea, hoarseness, or sore throat. CARDIOVASCULAR: Denies any exertional angina, dyspnea on exertion, orthopnea, paroxysmal nocturnal dyspnea, positive for palpitation PULMONARY: Denies any shortness of breath, positive for cough, hemoptysis, pleuritic chest pain. SLEEP: Denies morning headaches, daytime somnolence or napping. Denies difficulty falling asleep, staying asleep, waking from sleep. Denies knowledge of snoring. GASTROINTESTINAL: Positive for difficulty in swallowing, loose stools GENITOURINARY: Denies dysuria, hematuria, incontinence ENDOCRINOLOGIC: Denies polyuria, polydipsia, polyphagia or heat/cold intolerances. HEMATOLOGIC: Denies thrombophilia/previous clots, or coagulopathy/bleeding disorders. ONCOLOGIC: Denies personal history of malignancy. DERMATOLOGIC: Denies rashes or pruritus. PSYCHIATRIC: Denies any suicidal or homicidal ideation. Denies hallucinations. PHYSICAL EXAM GENERAL APPEARANCE: The patient is awake, alert, and oriented, in no acute cardiopulmonary distress. NEUROLOGICAL: Cranial nerves II-XII grossly intact. Motor is 5/5 in bilateral upper and lower extremities proximal to distal. No sensory deficits. HEENT: Face is symmetric. Pupils are equal and reactive. Extraocular movements are intact. NECK: Supple. No JVD. No thyromegaly. No submental, submandibular, pre- /postauricular, occipital or supraclavicular lymphadenopathy. CHEST: Normal chest expansion. No Telemetry. LUNGS: Absence of any rales, rhonchi or any wheezing. CARDIOVASCULAR: Regular. S1 and S2 normal. No appreciable rubs, murmurs or gallops. ABDOMEN: Soft, nontender, and nondistended. There is no rebound, voluntary guarding, or rigidity. : Deferred. No Chauhan. EXTREMITIES: Non-edematous and not cyanotic. No clubbing. Good capillary refill. SKIN: No skin breakdown. Vital Signs (last 8hr) Date Time Temp Pulse Resp B/P (MAP) Pulse Ox O2 Delivery O2 Flow Rate FiO2 11/01/24 12:00 99.0 67 15 104/68 100 Room Air 11/01/24 11:30 Mask 11/01/24 11:30 Mask 10.0 11/01/24 08:00 98.8 63 22 110/71 97 Room Air 11/01/24 07:48 98 Room Air* 0 21 LABS: Laboratory: Test 11/01/24 14:16 11/01/24 05:21 10/31/24 12:01 10/31/24 10:49 Range/Units Potassium Level 4.1 3.5-5.1 mmol/L White Blood Count 3.3 L 4.8-10.8 K/uL Red Blood Count 3.90 L 4.00-5.50 MIL/uL Hemoglobin 11.3 L 12.0-16.0 g/dL Hematocrit 33.7 L 36-48 % Mean Corpuscular Volume 86.4 79-99 fL Mean Corpuscular Hemoglobin 29.0 27.0-33.0 pg Mean Corpuscular Hemoglobin Concent 33.5 32.0-36.0 g/dL Red Cell Distribution Width 14.6 11.0-15.5 % Platelet Count 142 130-400 K/uL Mean Platelet Volume 10.1 7.5-10.5 fL Immature Granulocyte % (Auto) 0.3 0-1 % Neutrophils (%) (Auto) 58.3 40.0-77.0 % Lymphocytes (%) (Auto) 25.9 21.0-51.0 % Monocytes (%) (Auto) 12.8 3.0-13.0 % Eosinophils (%) (Auto) 2.1 0.0-8.0 % Basophils (%) (Auto) 0.6 0.0-5.0 % Neutrophils # (Auto) 1.9 1.8-7.7 K/uL Lymphocytes # (Auto) 0.9 L 1.0-4.8 K/uL Monocytes # (Auto) 0.4 0.1-1.0 K/uL Eosinophils # (Auto) 0.07 0.00-0.70 K/uL Basophils # (Auto) 0.02 0.00-0.20 K/uL Absolute Immature Granulocyte (auto 0.01 0-1 K/uL Nucleated Red Blood Cells 0.0 0.0-0.19 % Sodium Level 144 136-145 mmol/L Chloride Level 109 101-111 mmol/L Carbon Dioxide Level 29 21-32 mmol/L Blood Urea Nitrogen 4 L 7-18 mg/dL Creatinine 0.5 0.5-1.0 mg/dL Glomerular Filtration Rate Calc 107 >90 mL/min Random Glucose 86 70-105 mg/dL Total Calcium 8.3 L 8.5-10.1 mg/dL Total Bilirubin 0.9 0.2-1.0 mg/dL Aspartate Amino Transf (AST/SGOT) 29 10-37 U/L Alanine Aminotransferase (ALT/SGPT) 32 12-78 U/L Alkaline Phosphatase 83 50-136 U/L Total Protein 7.0 6.0-8.3 g/dL Albumin 3.2 L 3.5-5.0 g/dL White Blood Count (Cell Immunity) 4.1 3.4-10.8 x10E3/uL Lymphocytes (Cell Immunity) 19 Not Estab. % Absolute Lymphocytes (Cell Immunity 0.8 0.7-3.1 x10E3/uL Percent CD4 Cells 48.6 30.8-58.5 % Absolute CD4 Count 911 704-4603 /uL Magnesium Level 2.20 1.80-2.40 mg/dL Test 10/31/24 03:57 10/30/24 20:55 10/30/24 18:05 10/30/24 17:00 Range/Units Lactic Acid Level 0.8 0.8-2.5 mmol/L Phosphorus Level 2.4 L 2.5-4.9 mg/dL C-Reactive Protein, Quantitative 45.00 H 0.5-3.0 mg/L Procalcitonin 6.94 H 0.05-0.5 ng/mL HIV (1&2) Ag and Ab, 4th Generation Non Reactive Non Reactive HIV (1&2) Antibody Preliminary Positive *A Negative HIV P24 Antigen, Qualitative Preliminary Positive *A Negative Stool Occult Blood POSITIVE H NEGATIVE Stool Lactoferrin (ZORAIDA) POSITIVE H NEGATIVE Current Medications Medications (Trade) Dose Ordered Sig/Vinod Route PRN Reason Start Time Stop Time Status Last Admin Dose Admin Acetaminophen (TYLenol 325MG TAB) 650 mg Q6H PRN PO TEMPERATURE GREATER THAN 101.5 10/30/24 04:00 11/29/24 03:59 10/30/24 13:35 650 MG Enoxaparin Sodium (Lovenox) 40 mg DAILY SQ 10/30/24 09:00 11/29/24 08:59 11/01/24 12:09 40 MG Famotidine (Pepcid 20mg Vial) 20 mg BID IV 11/01/24 21:00 12/01/24 20:59 Famotidine (Pepcid 20mg Tab) 20 mg DAILY PO 10/30/24 09:00 11/01/24 10:39 DC 10/31/24 08:02 20 MG Hydralazine HCl (APRESOLine 20MG INJ) 10 mg Q6H PRN IV For:SBP above 160;DBP above 90 10/30/24 04:00 11/29/24 03:59 Lactated Ringer's 1,000 ml @ 75 mls/hr [id number] IV 10/30/24 04:00 10/30/24 11:29 DC 10/30/24 05:43 75 MLS/HR Levothyroxine Sodium (SYNTHroid 100MCG TAB) 100 mcg SYN PO 11/01/24 07:30 12/01/24 07:29 11/01/24 07:32 100 MCG Magnesium Sulfate 50 ml @ 0 mls/hr PROTOCOL PRN IV h 10/30/24 04:00 11/29/24 03:59 10/31/24 08:05 25 MLS/HR Morphine Sulfate (morPHINE 2MG SYG) 2 mg Q4H PRN IVP SEVERE PAIN (7-10) 10/30/24 04:00 11/06/24 03:59 Ondansetron HCl (zoFRAN 4MG INJ) 4 mg Q6H PRN IV NAUSEA/VOMITING 10/30/24 04:00 11/29/24 03:59 Piperacillin Sod/ Tazobactam Sod (Zosyn 3.375gm+NS 50ml) 3.375 gm Q8H IV 10/30/24 12:00 11/09/24 11:59 11/01/24 12:05 3.375 GM Polyethylene Glycol/ Electrolytes (Golytely/Colyte Soln) 4,000 ml ONCE PO 10/31/24 16:00 10/31/24 23:00 DC 10/31/24 18:15 4,000 ML Potassium Chloride 10 meq/ Sodium Chloride 50 ml @ 50 mls/hr PROTOCOL IV 10/30/24 02:00 10/30/24 01:55 DC Potassium Chloride/Sodium Chloride 1,000 ml @ 100 mls/hr Q10H IV 10/30/24 05:00 10/30/24 11:29 DC 10/30/24 05:42 100 MLS/HR Potassium Chloride/Sodium Chloride 1,000 ml @ 100 mls/hr Q10H IV 10/30/24 17:00 11/29/24 16:59 11/01/24 09:48 100 MLS/HR Potassium Chloride 100 ml @ 100 mls/hr AD PRN IV POTASSIUM PROTOCOL 10/30/24 02:00 11/29/24 01:59 10/31/24 01:11 100 MLS/HR Potassium Chloride (K-Dur/Klor-Con 20meq) 20 meq AD PRN PO POTASSIUM PROTOCOL 10/30/24 05:00 11/29/24 04:59 10/31/24 23:16 20 MEQ Potassium Chloride (KCl 10% Elixir 20meq/15ml) 20 meq AD PRN PO POTASSIUM PROTOCOL 10/30/24 05:00 11/29/24 04:59 10/30/24 05:42 20 MEQ DIAGNOSTICS / RADIOLOGY: [ ] ASSESSMENT: Severe hypokalemia, POA Sepsis, POA Acute cystitis POA Chronic Diarrhea Hypothyroidism Severe Protein calorie malnutrition, POA PLAN: Severe hypokalemia, secondary to chronic diarrhea and poor oral intake POA - Serum potassium today is 4.2 Improved from 1.9 on admission. - Random urine potassium 12 millimoles per L - Potassium replacement protocol in place - Magnesium replacement protocol in place - Continue telemetry Liver parenchymal disease: -CT abdomen and pelvis on 10/30 revealed mild heterogeneous coarse attenuation of the liver suggesting the presence of a liver parenchymal disease. -patient's LFTs were normal on admission. -we will perform a focused sonogram of her liver to identify the underlying pathology, follow up with the results. -continue to monitor with serial labs. Sepsis, POA Unknown source - ID recommended fecal PCR and stool for Tropheryma, still pending - Continue IV Zosyn (day 3) - Critical Care on board Acute cystitis POA -urine culture showed no growth -continue IV Zosyn (day 3) Chronic Diarrhea and positive fecal occult blood: - (RN)will fax stool electrolytes to the lab for fecal osmolality . - colonoscopy was performed today, pending report - pending stool PCR, for ova and parasites, and fecal fat results. Follow up with the results -continue to monitor serum electrolytes and maintain hydration. Hypothyroidism - TSH within normal limits - continue home medication Other: Patient complaining of cough we will do a bedside swallow evaluation;we will Request a CT chest. Differential diagnosis not limited to medullary thyroid cancer, disseminated tuberculosis, lymphoma, vipoma, chronic hepatitis - pending fecal PCR, stool culture and hepatitis panel. ATTESTATION BY PHYSICIAN I have seen and examined the patient. I reviewed the documentation, medical decision making, and treatment plan as noted by the resident provider above. I agree with the findings and plan of care. Ezra Veronica MD, HEMA MD Nov 01, 2024 15:19
--- NOTE | 2024-11-01 15:27 | PN ---
[facility] PROGRESS NOTE Date Patient Seen: Nov 01, 2024 Time of Visit: 15:22 Supervising Physician: Jerald Rooney MD Primary Care Physician: Stephenie Laureano MD Outpatient Specialists: [ ] Inpatient Consults: GI, ID, Hemonc PROBLEM LIST: Severe hypokalemia, POA, resolved Sepsis, POA, resolving Acute cystitis POA Chronic Diarrhea Hypothyroidism Cervical Lymphadenopathy POA Thrombocytopenia Suspected HIV infection pending RNA result INTERVAL HISTORY: Pt is awake alert and oriented x 3. Loose stools continues. On IVF with NS and 20 meq of KCL She is pending Colonoscopy today per GI. Pt Potassium level has improved. K+ 4.2 today. HH stable 11.3/33.7. Cr 0.5 GFR 107. Neck US; Bilateral cervical lymph nodes. CT chest:1. No pulmonary infiltrate or effusion. No suspicious lung nodule. Lung RADS category 1. Continue annual screening with LDCT. 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 Mild coronary artery disease with atherosclerosis. Otherwise stable to downgrade to the floor. REVIEW OF SYSTEMS: 12 point ROS reviewed with patient. Pertinent positives mentioned above. Otherwise negative. PHYSICAL EXAM: GENERAL: alert, weak, awake oriented x 3 HEENT: EOMI, Sclera non icteric, moist mucosa NECK: Supple, no JVD, trachea midline LUNGS: Clear breath sounds bilaterally. No wheezes HEART: Regular rate and rhythm. Normal S1 and S2, without murmurs ABD: Abdomen soft, nontender. Bowel sounds present EXT: No clubbing cyanosis or edema NEURO: Alert and oriented to person, follows commands Vital Signs (last 8hr) Date Time Temp Pulse Resp B/P (MAP) Pulse Ox O2 Delivery O2 Flow Rate FiO2 11/01/24 12:00 99.0 67 15 104/68 100 Room Air 11/01/24 11:30 Mask 11/01/24 11:30 Mask 10.0 11/01/24 08:00 98.8 63 22 110/71 97 Room Air 11/01/24 07:48 98 Room Air* 0 21 LABS: Hematology Labs: Test 11/01/24 05:21 Range/Units White Blood Count 3.3 L 4.8-10.8 K/uL Red Blood Count 3.90 L 4.00-5.50 MIL/uL Hemoglobin 11.3 L 12.0-16.0 g/dL Hematocrit 33.7 L 36-48 % Mean Corpuscular Volume 86.4 79-99 fL Mean Corpuscular Hemoglobin 29.0 27.0-33.0 pg Mean Corpuscular Hemoglobin Concent 33.5 32.0-36.0 g/dL Red Cell Distribution Width 14.6 11.0-15.5 % Platelet Count 142 130-400 K/uL Mean Platelet Volume 10.1 7.5-10.5 fL Immature Granulocyte % (Auto) 0.3 0-1 % Neutrophils (%) (Auto) 58.3 40.0-77.0 % Lymphocytes (%) (Auto) 25.9 21.0-51.0 % Monocytes (%) (Auto) 12.8 3.0-13.0 % Eosinophils (%) (Auto) 2.1 0.0-8.0 % Basophils (%) (Auto) 0.6 0.0-5.0 % Neutrophils # (Auto) 1.9 1.8-7.7 K/uL Lymphocytes # (Auto) 0.9 L 1.0-4.8 K/uL Monocytes # (Auto) 0.4 0.1-1.0 K/uL Eosinophils # (Auto) 0.07 0.00-0.70 K/uL Basophils # (Auto) 0.02 0.00-0.20 K/uL Absolute Immature Granulocyte (auto 0.01 0-1 K/uL Nucleated Red Blood Cells 0.0 0.0-0.19 % Chemistry Labs: Test 11/01/24 14:16 11/01/24 05:21 10/31/24 10:49 10/31/24 03:57 Range/Units Potassium Level 4.1 3.5-5.1 mmol/L Sodium Level 144 136-145 mmol/L Chloride Level 109 101-111 mmol/L Carbon Dioxide Level 29 21-32 mmol/L Blood Urea Nitrogen 4 L 7-18 mg/dL Creatinine 0.5 0.5-1.0 mg/dL Glomerular Filtration Rate Calc 107 >90 mL/min Random Glucose 86 70-105 mg/dL Total Calcium 8.3 L 8.5-10.1 mg/dL Total Bilirubin 0.9 0.2-1.0 mg/dL Aspartate Amino Transf (AST/SGOT) 29 10-37 U/L Alanine Aminotransferase (ALT/SGPT) 32 12-78 U/L Alkaline Phosphatase 83 50-136 U/L Total Protein 7.0 6.0-8.3 g/dL Albumin 3.2 L 3.5-5.0 g/dL Magnesium Level 2.20 1.80-2.40 mg/dL Lactic Acid Level 0.8 0.8-2.5 mmol/L Phosphorus Level 2.4 L 2.5-4.9 mg/dL C-Reactive Protein, Quantitative 45.00 H 0.5-3.0 mg/L Procalcitonin 6.94 H 0.05-0.5 ng/mL DIAGNOSTICS / RADIOLOGY RESULTS: [facility] [address] [place] [id number] IMAGING REPORT Signed PATIENT: ENRIQUE NUÑEZ MR#: [id number] : 1965 SEX: F AGE: 59 LOCATION: [facility] ORDER [id number] STATUS: ADM IN [facility] REPORT#: [id number] SERVICE 1638 REASON: HISTORY OF ?NECK MASSES ,DYSPHAGIA ORDERING PHYSICIAN: VELASQUEZ PINEDA MD PROCEDURE: SOFT NECK - US SOFT TISSUE NECK EXAMINATION: SOFT TISSUE ULTRASOUND OF THE NECK. CLINICAL HISTORY: Neck mass and dysphagia. COMPARISON: CT chest without contrast from the same day. TECHNIQUE: Transverse and longitudinal images were obtained in the neck. FINDINGS: There are lymph nodes that measure 0.4 x 0.4 x 0.5 cm, 0.8 x 0.5 x 1.1 cm, 0.4 x 0.2 x 0.3 cm in the right side of the neck and 0.7 x 0.4 x 0.8 cm, 0.9 x 1.0 x 0.5 cm in the left side of the neck. Hilar echoes are maintained. No increased vascularity. IMPRESSION: Bilateral cervical lymph nodes. Recommend CT neck with contrast for further evaluation. /[place] DICTATED BY: CHAD LILLY MD DATE: 10/31/24716 ELECTRONICALLY SIGNED BY: CHAD LILLY MD DATE: 10/31/24 0717 PLAN We continue to follow blood cultures Continued on Zosyn Continue to monitor potassium levels, replace per protocol Patients platelets have been declining, Heme-Onc consulted Continue to follow ID recommendations Follow up on Stool culture and PCR Follow up on HIV 1/2 test with reflex, CD4 count Pending RNA Plan for colonoscopy today per GI Levothyroxine resumed Order CT neck NEURO: Minimize central acting medications as possible. Fall Precautions. Well lighted room through the day and minimize interruptions through the night to prevent acute delirium. PULMONARY: Supplemental 02 as needed Titrate Fio2 to keep Spo2 > or = 90% DuoNebs and CPT as needed IS hourly while awake for pulmonary hygiene Out of bed to chair as tolerated VAP Bundle Vent/BIPAP Settings: [ ] Driving pressure: [ ] P Plat: [ ] Static C: [ ] Static R: [ ] P/F Ratio: [ ] CARDIOVASCULAR: Follow hemodynamics. Titrate vasopressor to keep MAP >65 or systolic blood pressure >95mmHg DIPS: [ ] LINES: [ ] GI & NUTRITION: Continue nutritional support Aspirations precautions Prokinetic agents and laxatives as needed KIDNEYS & ELECTROLYTES: Strict monitoring of intake and output Daily weights Avoid nephrotoxic agents Monitor electrolytes and replace as needed Goal urine output of 30mL/hr or 0.5mL/kg/hr Urine output: [ ] Fluid Balance: [ ] ENDOCRINE: Maintain blood glucose between 100-180 at all times. Insulin sliding scale for blood glucose management INFECTIOUS DISEASE: Trend temperature. Norris-culture if febrile. Micro: [ ] Antibiotics: [ ] HEMATOLOGY & COAGULATION: Monitor H&H. Keep Hgb > 7 Transfuse 1 unit of PRBC for Hgb < 7 Transfuse 1 pack of platelets of platelets < 20, 000 Watch for any signs and symptoms of bleeding SKIN: Pressure ulcer prevention per facility protocol Rehab: PT/OT Prophylaxis: GI: [ ] DVT: [ ] Code Status: Full Resuscitation Disposition: [ ] Other: Total patient care time exceeds 35 minutes excluding all procedures. Case was discussed and seen with my supervising physician. The above plan was formulated and agreed upon. ADELA MANZANARES [facility] Nov 01, 2024 15:27
--- NOTE | 2024-11-01 17:33 | NUR ---
Patient transferred to room 228 via wheelchair. Report given to Juliana Méndez RN. All questions answered. All patient belongings taken with patient. Left in care of nurse at bedside.
[2024-11-01] MEDS: FAMOTIDINE 20MG VIAL IV SCH (20:15)
--- NOTE | 2024-11-01 22:19 | PN ---
INFECTIOUS DISEASE PROGRESS NOTE Date of Service: Nov 01, 2024 SUBJECTIVE: Patient is awake, alert and oriented x3. No fever reported this morning, temperature is 99.0. No growth reported on the urine culture. Patient had an ultrasound of the neck done today which showed bilateral cervical lymph nodes and pending a CT of the neck. We will continue on Zosyn IV. Pending HIV RNA results which is a send out lab. We will obtain hepatitis panel. No other issues reported by nursing. PHYSICAL EXAM EYES: Anicteric. Pupils equal and reactive. HENT: No oral thrush seen, moist Oral mucosa. NECK: Supple, no JVD or thyromegaly. LUNGS: Good air entry. No rales, no rhonchi. CARDIOVASCULAR: S1, S2 regular. No murmur heard. ABDOMEN: Soft, non tender, bowel sounds present, no organomegaly. CENTRAL NERVOUS SYSTEM: Awake, alert, oriented x 3. SKIN: No rashes, no swelling. LYMPHATICS: No peripheral lymphadenopathy. MUSCULOSKELETAL: No joint swelling, erythema or tenderness. EXTREMITIES: No cyanosis or clubbing. BACK: No deformity, no pressure ulcer. GENITOURINARY: No dysuria or hematuria. Vital Sign (Last 12 Hours) 11/01/24 11/01/24 11/01/24 11/01/24 11:30 11:30 12:00 18:55 Temp 99.0 97.7 Pulse 67 61 Resp 15 16 B/P (MAP) 104/68 108/67 Pulse Ox 100 98 O2 Delivery Mask Mask Room Air Room Air O2 Flow Rate 10.0 11/01/24 20:00 Pulse Ox 98 O2 Delivery Room Air* O2 Flow Rate 0 FiO2 21 Intake & Output (last 24hrs) 10/31/24 10/31/24 11/01/24 15:00 23:00 07:00 Intake Total 1353.0 ml 1829.0 ml 1377.5 ml Balance 1353.0 ml 1829.0 ml 1377.5 ml LABS: Laboratory: Test 11/01/24 20:00 11/01/24 05:21 10/31/24 12:01 10/31/24 10:49 Range/Units Potassium Level 4.4 3.5-5.1 mmol/L White Blood Count 3.3 L 4.8-10.8 K/uL Red Blood Count 3.90 L 4.00-5.50 MIL/uL Hemoglobin 11.3 L 12.0-16.0 g/dL Hematocrit 33.7 L 36-48 % Mean Corpuscular Volume 86.4 79-99 fL Mean Corpuscular Hemoglobin 29.0 27.0-33.0 pg Mean Corpuscular Hemoglobin Concent 33.5 32.0-36.0 g/dL Red Cell Distribution Width 14.6 11.0-15.5 % Platelet Count 142 130-400 K/uL Mean Platelet Volume 10.1 7.5-10.5 fL Immature Granulocyte % (Auto) 0.3 0-1 % Neutrophils (%) (Auto) 58.3 40.0-77.0 % Lymphocytes (%) (Auto) 25.9 21.0-51.0 % Monocytes (%) (Auto) 12.8 3.0-13.0 % Eosinophils (%) (Auto) 2.1 0.0-8.0 % Basophils (%) (Auto) 0.6 0.0-5.0 % Neutrophils # (Auto) 1.9 1.8-7.7 K/uL Lymphocytes # (Auto) 0.9 L 1.0-4.8 K/uL Monocytes # (Auto) 0.4 0.1-1.0 K/uL Eosinophils # (Auto) 0.07 0.00-0.70 K/uL Basophils # (Auto) 0.02 0.00-0.20 K/uL Absolute Immature Granulocyte (auto 0.01 0-1 K/uL Nucleated Red Blood Cells 0.0 0.0-0.19 % Sodium Level 144 136-145 mmol/L Chloride Level 109 101-111 mmol/L Carbon Dioxide Level 29 21-32 mmol/L Blood Urea Nitrogen 4 L 7-18 mg/dL Creatinine 0.5 0.5-1.0 mg/dL Glomerular Filtration Rate Calc 107 >90 mL/min Random Glucose 86 70-105 mg/dL Total Calcium 8.3 L 8.5-10.1 mg/dL Total Bilirubin 0.9 0.2-1.0 mg/dL Aspartate Amino Transf (AST/SGOT) 29 10-37 U/L Alanine Aminotransferase (ALT/SGPT) 32 12-78 U/L Alkaline Phosphatase 83 50-136 U/L Total Protein 7.0 6.0-8.3 g/dL Albumin 3.2 L 3.5-5.0 g/dL White Blood Count (Cell Immunity) 4.1 3.4-10.8 x10E3/uL Lymphocytes (Cell Immunity) 19 Not Estab. % Absolute Lymphocytes (Cell Immunity 0.8 0.7-3.1 x10E3/uL Percent CD4 Cells 48.6 30.8-58.5 % Absolute CD4 Count 333 915-9452 /uL Magnesium Level 2.20 1.80-2.40 mg/dL Test 10/31/24 03:57 Range/Units Lactic Acid Level 0.8 0.8-2.5 mmol/L Phosphorus Level 2.4 L 2.5-4.9 mg/dL C-Reactive Protein, Quantitative 45.00 H 0.5-3.0 mg/L Procalcitonin 6.94 H 0.05-0.5 ng/mL ASSESSMENT: Urinary tract infection. Possible infectious gastroenteritis. Hypokalemia. Hypothyroidism. Suspected HIV infection, pending HIV RNA results. PLAN: Continue Zosyn. Continue GI prophylaxis. We will follow up on the HIV RNA results. We will follow up on PCR and Tropheryma stool results results. We will obtain hepatitis panel. Continue hypokalemia protocol. Continue pain management. Continue antiemetics. This case was reviewed and discussed with my supervising physician and the above assessment and plan was formulated and agreed upon. ATTESTATION BY PHYSICIAN I have seen and examined the patient. I reviewed the documentation, medical decision making, and treatment plan as noted by the mid-level provider above. I agree with the findings and plan of care. CRESCENCIO MOREJON MD, [facility]TA [facility] Nov 01, 2024 22:19
[2024-11-02 03:17] VITALS: BP 112/63; PULSE 57; RESP 16; TEMP 97.5
[2024-11-02 04:27] LABS: IMMATURE GRANULOCYTE ABSOLUTE 0.00 K/uL (0-1); NUCLEATED RED BLOOD CELLS 0.0 % (0.0-0.19); PLATELET COUNT (AUTO) 120 K/uL (130-400); RED BLOOD CELL COUNT(AUTO) 3.66 MIL/uL (4.00-5.50); RED CELL DISTRIBUTION WIDTH 14.2 % (11.0-15.5); WHITE BLOOD COUNT (AUTO) 2.7 K/uL (4.8-10.8)
[2024-11-02 04:39] LABS: CREATININE 0.4 mg/dL (0.5-1.0); GLOMERULAR FILTR. RATE CALC 113.0 mL/min (>90); GLUCOSE,RANDOM 80.0 mg/dL (70-105); SODIUM SERUM 139.0 mmol/L (136-145); UREA NITROGEN, BLOOD 4.0 mg/dL (7-18)
[2024-11-02 05:10] LABS: EOSINOPHILS % (MANUAL) 2 % (1-6); LYMPHOCYTES % (MANUAL) 27 % (22-44); MONOCYTES % (MANUAL) 9 % (2-9); SEGMENTED NEUTROPHILS % 62 % (40-70)
[2024-11-02 05:11] LABS: MAN.DIFF COMMENT-IMPRESSION MANUAL DIFFERENTIAL
[2024-11-02 06:12] LABS: C DIFFICILE TOXIN A/B Not Detected (Not Detected); ENTEROAGGREGATIVE ECOLI Not Detected (Not Detected); GIARDIA LAMBLIA Not Detected (Not Detected); PLESIOMONAS SHIGELOIDES Not Detected (Not Detected); SAPOVIRUS Not Detected (Not Detected); SHIGELLA/ENTEROINVASIVE E COLI Not Detected (Not Detected); VIBRIO Not Detected (Not Detected); VIBRIO CHOLERAE Not Detected (Not Detected)
--- NOTE | 2024-11-02 06:14 | HMCIMG ---
EXAMINATION: ULTRASOUND OF THE ABDOMEN (LIMITED) WITH COLOR DOPPLER. CLINICAL HISTORY: Probable liver parenchymal disease on CT. COMPARISON: CT of the abdomen and pelvis with contrast dated 10/30/2024. TECHNIQUE: Real-time grayscale ultrasound images of the abdomen. In addition, color Doppler is medically necessary to perform in order to evaluate vascularity and blood flow. FINDINGS: Liver: Normal in caliber. There is normal echogenicity of the hepatic parenchyma. There is no focal hepatic abnormality or intrahepatic biliary ductal dilatation. The main portal vein is not well visualized. The right lobe is partially visualized. Gallbladder: Post cholecystectomy status. Common bile duct is normal in caliber, measuring 0.34 cm. Pancreas: Normal in caliber and echotexture. No calcification or dilated pancreatic duct. The right kidney is normal in caliber, the right kidney measures 12.3 x 5.1 x 5.2 cm in its craniocaudal, AP, and transverse dimensions respectively. There is normal renal cortical thickness, and cortical echogenicity. There is no renal calculus or hydronephrosis. IMPRESSION: Post cholecystectomy status. No other significant abnormality. /Ernie
[2024-11-02 08:00] VITALS: BP 163/90; PULSE 65; RESP 18; TEMP 98; O2SAT 99
--- NOTE | 2024-11-02 11:46 | PN ---
[facility] PROGRESS NOTE Date of Service: Nov 02, 2024 Time of Service: 11:39 SUBJECTIVE: 59 year old female with PMH of osteoarthritis (s/p R and L total knee arthroplasty ),hypothyroidism , hypokalemia ,covid infection(August 2024), chronic diarrhea (>1 year, under evaluation ) presented to ER with c/o fever, chills , cough, palpitations and generalized weakness. Patient reports that she has been experiencing chest pain and palpitations on a daily basis . She has at least a 10 watery bowel movements (bloody occasionally )a day for the past1 year and she had underwent extensive evaluation including colonoscopy and EGDscopy elsewhere without any an established diagnosis. She also states that she has lost at least 50 lbs in past 1 year. 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 She attributes her coughing to this. She denies smoking, alcohol or drug abuse. At the time of presentation her temperature was 102 F, heart rate 106, respiratory rate 19, blood pressure 130/75, SpO2 100% on room air. Labs were remarkable for WBC 8.2, hemoglobin 12.1, lactic acid 2.1, potassium 1.9, magnesium 1.3, bilirubin 1.5, AST 62, procalcitonin 7.47, CK 261. EKG showed normal sinus rhythm with a nonspecific STT wave changes. CT abdomen and pelvis showed acute enterocolitis with a right diaphragmatic eventration, liver parenchymal disease, splenomegaly and prominent dilated ileo renal collaterals into left renal vein. She was admitted for further evaluation and management of sepsis and severe hypokalemia. 10/30/2024: Patient is seen and evaluated at her bedside. She states that she is feeling comparatively better. Febrile, temperature 100.2, pulse rate83 , respiratory rate18 , blood pressure 113/71, SpO2 97% room air. Labs showed downtrending lactic acid from 2.1-1.3. Potassium levels are improved to 2.6 with potassium supplementation. Pending Infectious Disease, Gastroenterology, Cardiology consults. 10/31/2024: Patient was seen and evaluated at the bedside in room 209. Patient is alert, awake, and oriented. Her vitals are stable. Patient endorses that she is doing well compared to when she was admitted. She has no active comp laints and stated that she has started eating food today. Infectious diseases was consulted who recommended sending the stools for PCR, and Tropheryma. Gastroenterology, Cardiology consults pending. 11/01/2024: Patient was seen and evaluated at the bedside in room 209. Patient is alert, awake, and oriented. she denies any active complaints today. Patient stated that she feels like her hands are swollen a little bit, she believes it is due to the fluids that she is getting. She has been placed on an NPO for anticipated colonoscopy today. Infectious Disease saw the patient, they recommended continuing with the current management and doing further workup for the cause of her chronic diarrhea. Patient had a preliminary positive HIV test which was ruled out today based on the subsequent testing. Her vitals are stable with a blood pressure of 104/68. Laboratory evaluation did not reveal any significant abnormalities. Cardiology consult pending. 11/02/2024: Patient was seen and evaluated at the bedside in room 228. Patient was alert, awake, and oriented without any acute distress. She states that she is doing well. Her only complaint today was that she felt bloated after drinking coffee. Her colonoscopy from yesterday did not reveal any significant abnormalities. Her stool was positive for occult blood, and lactoferrin. Stool PCR did not reveal any organisms in the GI tract. HIV RNA test was sent to confirm her HIV diagnosis. Her her vitals are stable today with a blood p ressure of 112/63 REVIEW OF SYSTEMS CONSTITUTIONAL: Alert, awake, no acute distress, oriented. NEUROLOGICAL: Denies headache, , motor weakness, sensory deficit, vertigo/spinning sensation, gait abnormalities, or tremors. ENT: No hearing loss, otalgia, otorrhea, rhinitis, rhinorrhea, hoarseness, or sore throat. CARDIOVASCULAR: Denies any exertional angina, dyspnea on exertion, orthopnea, paroxysmal nocturnal dyspnea, positive for palpitation PULMONARY: Denies any shortness of breath, positive for cough, hemoptysis, pleuritic chest pain. SLEEP: Denies morning headaches, daytime somnolence or napping. Denies difficulty falling asleep, staying asleep, waking from sleep. Denies knowledge of snoring. GASTROINTESTINAL: Positive for difficulty in swallowing, loose stools GENITOURINARY: Denies dysuria, hematuria, incontinence ENDOCRINOLOGIC: Denies polyuria, polydipsia, polyphagia or heat/cold intolerances. HEMATOLOGIC: Denies thrombophilia/previous clots, or coagulopathy/bleeding disorders. ONCOLOGIC: Denies personal history of malignancy. DERMATOLOGIC: Denies rashes or pruritus. PSYCHIATRIC: Denies any suicidal or homicidal ideation. Denies hallucinations. PHYSICAL EXAM GENERAL APPEARANCE: The patient is awake, alert, and oriented, in no acute cardiopulmonary distress. NEUROLOGICAL: Cranial nerves II-XII grossly intact. Motor is 5/5 in bilateral upper and lower extremities proximal to distal. No sensory deficits. HEENT: Face is symmetric. Pupils are equal and reactive. Extraocular movements are intact. NECK: Supple. No JVD. No thyromegaly. No submental, submandibular, pre- /postauricular, occipital or supraclavicular lymphadenopathy. CHEST: Normal chest expansion. No Telemetry. LUNGS: Absence of any rales, rhonchi or any wheezing. CARDIOVASCULAR: Regular. S1 and S2 normal. No appreciable rubs, murmurs or gallops. ABDOMEN: Soft, nontender, and nondistended. There is no rebound, voluntary guarding, or rigidity. : Deferred. No Chauhan. EXTREMITIES: Non-edematous and not cyanotic. No clubbing. Good capillary refill. SKIN: No skin breakdown. Vital Signs (last 8hr) Date Time Temp Pulse Resp B/P (MAP) Pulse Ox O2 Delivery O2 Flow Rate FiO2 11/02/24 08:00 98.1 65 18 163/90 99 Room Air 11/02/24 08:00 99 Room Air* 0 21 LABS: Laboratory: Test 11/02/24 11:20 11/02/24 04:02 11/01/24 05:21 10/31/24 12:01 Range/Units Reticulocyte Count (auto) 1.61174 0.42-2.23 % Immature Reticulocyte Fraction 11.00 H 0.18-0.48 % White Blood Count 2.7 L 4.8-10.8 K/uL Red Blood Count 3.66 L 4.00-5.50 MIL/uL Hemoglobin 10.4 L 12.0-16.0 g/dL Hematocrit 31.8 L 36-48 % Mean Corpuscular Volume 86.9 79-99 fL Mean Corpuscular Hemoglobin 28.4 27.0-33.0 pg Mean Corpuscular Hemoglobin Concent 32.7 32.0-36.0 g/dL Red Cell Distribution Width 14.2 11.0-15.5 % Platelet Count 120 L 130-400 K/uL Mean Platelet Volume 9.5 7.5-10.5 fL Immature Granulocyte % (Auto) 0.0 0-1 % Neutrophils (%) (Auto) 60.0 40.0-77.0 % Lymphocytes (%) (Auto) 26.0 21.0-51.0 % Monocytes (%) (Auto) 10.2 3.0-13.0 % Eosinophils (%) (Auto) 3.4 0.0-8.0 % Basophils (%) (Auto) 0.4 0.0-5.0 % Neutrophils # (Auto) 1.6 L 1.8-7.7 K/uL Lymphocytes # (Auto) 0.7 L 1.0-4.8 K/uL Monocytes # (Auto) 0.3 0.1-1.0 K/uL Eosinophils # (Auto) 0.09 0.00-0.70 K/uL Basophils # (Auto) 0.01 0.00-0.20 K/uL Absolute Immature Granulocyte (auto 0.00 0-1 K/uL Segmented Neutrophils % 62 40-70 % Lymphocytes % (Manual) 27 22-44 % Monocytes % (Manual) 9 2-9 % Eosinophils % (Manual) 2 1-6 % Nucleated Red Blood Cells 0.0 0.0-0.19 % Differential Comment MANUAL DIFFERENTIAL White Cell Morphology Comment Platelet Morphology Comment See comments Red Blood Cell Morphology HYPOCHROM CELLS 1+ Sodium Level 139 136-145 mmol/L Potassium Level 4.2 3.5-5.1 mmol/L Chloride Level 105 101-111 mmol/L Carbon Dioxide Level 29 21-32 mmol/L Blood Urea Nitrogen 4 L 7-18 mg/dL Creatinine 0.4 L 0.5-1.0 mg/dL Glomerular Filtration Rate Calc 113 >90 mL/min Random Glucose 80 70-105 mg/dL Total Calcium 8.6 8.5-10.1 mg/dL Total Bilirubin 0.9 0.2-1.0 mg/dL Aspartate Amino Transf (AST/SGOT) 29 10-37 U/L Alanine Aminotransferase (ALT/SGPT) 32 12-78 U/L Alkaline Phosphatase 83 50-136 U/L Total Protein 7.0 6.0-8.3 g/dL Albumin 3.2 L 3.5-5.0 g/dL White Blood Count (Cell Immunity) 4.1 3.4-10.8 x10E3/uL Lymphocytes (Cell Immunity) 19 Not Estab. % Absolute Lymphocytes (Cell Immunity 0.8 0.7-3.1 x10E3/uL Percent CD4 Cells 48.6 30.8-58.5 % Absolute CD4 Count 824 352-0294 /uL Current Medications Medications (Trade) Dose Ordered Sig/Vinod Route PRN Reason Start Time Stop Time Status Last Admin Dose Admin Acetaminophen (TYLenol 325MG TAB) 650 mg Q6H PRN PO TEMPERATURE GREATER THAN 101.5 10/30/24 04:00 11/29/24 03:59 10/30/24 13:35 650 MG Enoxaparin Sodium (Lovenox) 40 mg DAILY SQ 10/30/24 09:00 11/29/24 08:59 11/02/24 08:26 40 MG Famotidine (Pepcid 20mg Vial) 20 mg BID IV 11/01/24 21:00 12/01/24 20:59 11/02/24 08:25 20 MG Famotidine (Pepcid 20mg Tab) 20 mg DAILY PO 10/30/24 09:00 11/01/24 10:39 DC 10/31/24 08:02 20 MG Hydralazine HCl (APRESOLine 20MG INJ) 10 mg Q6H PRN IV For:SBP above 160;DBP above 90 10/30/24 04:00 11/29/24 03:59 Lactated Ringer's 1,000 ml @ 75 mls/hr [id number] IV 10/30/24 04:00 10/30/24 11:29 DC 10/30/24 05:43 75 MLS/HR Levothyroxine Sodium (SYNTHroid 100MCG TAB) 100 mcg SYN PO 11/01/24 07:30 12/01/24 07:29 11/02/24 05:53 100 MCG Magnesium Sulfate 50 ml @ 0 mls/hr PROTOCOL PRN IV h 10/30/24 04:00 11/29/24 03:59 10/31/24 08:05 25 MLS/HR Morphine Sulfate (morPHINE 2MG SYG) 2 mg Q4H PRN IVP SEVERE PAIN (7-10) 10/30/24 04:00 11/06/24 03:59 Ondansetron HCl (zoFRAN 4MG INJ) 4 mg Q6H PRN IV NAUSEA/VOMITING 10/30/24 04:00 11/29/24 03:59 Piperacillin Sod/ Tazobactam Sod (Zosyn 3.375gm+NS 50ml) 3.375 gm Q8H IV 10/30/24 12:00 11/09/24 11:59 11/02/24 03:19 3.375 GM Polyethylene Glycol/ Electrolytes (Golytely/Colyte Soln) 4,000 ml ONCE PO 10/31/24 16:00 10/31/24 23:00 DC 10/31/24 18:15 4,000 ML Potassium Chloride 10 meq/ Sodium Chloride 50 ml @ 50 mls/hr PROTOCOL IV 10/30/24 02:00 10/30/24 01:55 DC Potassium Chloride/Sodium Chloride 1,000 ml @ 100 mls/hr Q10H IV 10/30/24 05:00 10/30/24 11:29 DC 10/30/24 05:42 100 MLS/HR Potassium Chloride/Sodium Chloride 1,000 ml @ 100 mls/hr Q10H IV 10/30/24 17:00 11/29/24 16:59 11/02/24 00:34 100 MLS/HR Potassium Chloride 100 ml @ 100 mls/hr AD PRN IV POTASSIUM PROTOCOL 10/30/24 02:00 11/29/24 01:59 10/31/24 01:11 100 MLS/HR Potassium Chloride (K-Dur/Klor-Con 20meq) 20 meq AD PRN PO POTASSIUM PROTOCOL 10/30/24 05:00 11/29/24 04:59 10/31/24 23:16 20 MEQ Potassium Chloride (KCl 10% Elixir 20meq/15ml) 20 meq AD PRN PO POTASSIUM PROTOCOL 10/30/24 05:00 11/29/24 04:59 10/30/24 05:42 20 MEQ DIAGNOSTICS / RADIOLOGY: [facility] [address] [place] [id number] IMAGING REPORT Signed PATIENT: ENRIQUE NUÑEZ MR#: [id number] : 1965 SEX: F AGE: 59 LOCATION: 2DH ORDER 1055 STATUS: ADM IN REPORT#: [id number] SERVICE 1040 REASON: probable Liver parenchymal disease as per CT Abd ORDERING PHYSICIAN: PASCUAL MCDOWELL MD PROCEDURE: [id number] - US ABDOMINAL RUQ\\LTD EXAMINATION: ULTRASOUND OF THE ABDOMEN (LIMITED) WITH COLOR DOPPLER. CLINICAL HISTORY: Probable liver parenchymal disease on CT. COMPARISON: CT of the abdomen and pelvis with contrast dated 10/30/2024. TECHNIQUE: Real-time grayscale ultrasound images of the abdomen. In addition, color Doppler is medically necessary to perform in order to evaluate vascularity and blood flow. FINDINGS: Liver: Normal in caliber. There is normal echogenicity of the hepatic parenchyma. There is no focal hepatic abnormality or intrahepatic biliary ductal dilatation. The main portal vein is not well visualized. The right lobe is partially visualized. Gallbladder: Post cholecystectomy status. Common bile duct is normal in caliber, measuring 0.34 cm. Pancreas: Normal in caliber and echotexture. No calcification or dilated pancreatic duct. The right kidney is normal in caliber, the right kidney measures 12.3 x 5.1 x 5.2 cm in its craniocaudal, AP, and transverse dimensions respectively. There is normal renal cortical thickness, and cortical echogenicity. There is no renal calculus or hydronephrosis. IMPRESSION: Post cholecystectomy status. No other significant abnormality. /[place] DICTATED BY: CHAD LILLY MD DATE: 11/02/24713 ELECTRONICALLY SIGNED BY: CHAD LILLY MD DATE: 11/02/24713 ASSESSMENT: Severe hypokalemia, POA Sepsis, POA Acute cystitis POA Chronic Diarrhea Hypothyroidism Severe Protein calorie malnutrition, POA PLAN: Severe hypokalemia, secondary to chronic diarrhea and poor oral intake POA - Serum potassium today is 4.2 Improved from 1.9 on admission. - Random urine potassium 12 millimoles per L - Potassium replacement protocol in place - Magnesium replacement protocol in place - Continue telemetry Sepsis, POA Unknown source - ID recommended stool for Tropheryma - fecal PCR was negative for all the organisms tested. - Continue IV Zosyn (day 2) - Critical Care on board Acute cystitis POA -urine culture showed no growth -continue IV Zosyn (day 2) Chronic Diarrhea - (RN)will fax stool electrolytes to the lab for fecal osmolality . - Pending GI consult - Pending fecal fat quantitative Hypothyroidism - TSH within normal limits - continue home medication ATTESTATION BY PHYSICIAN I have seen and examined the patient. I reviewed the documentation, medical decision making, and treatment plan as noted by the resident provider above. I agree with the findings and plan of care. Ezra Veronica MD, HEMA MD Nov 02, 2024 11:46
[2024-11-02 12:00] VITALS: BP 121/68; PULSE 65; RESP 18; TEMP 97.8
[2024-11-02 12:23] LABS: % IRON SATURATION 18.3 % (22-44); IRON, SERUM 52.0 mcg/dL (50-170)
--- NOTE | 2024-11-02 14:34 | HMCIMG ---
EXAM: CT Neck With IV Contrast. CLINICAL HISTORY: Cervical lymphadenopathy. TECHNIQUE: Contiguous axial images obtained through the neck with contrast. Reconstructed imaging. Reformatted/MPR images were performed. CT scan done according to ALARA (As Low as Reasonably Achievable). COMPARISON: Ultrasound dated October 30, 2024. FINDINGS: Included intracranial substances, orbits, and paranasal sinuses are grossly unremarkable. Nasopharynx, oropharynx, oral cavity, hypopharynx, and larynx are grossly unremarkable. Parotid, submandibular, and thyroid glands are grossly unremarkable. There are sub-centimeter lymph nodes at level IB and II on both sides of the neck, the largest measuring approximately 1.1 x 0.7 cm on the right side. No calcification or necrosis within the nodes. Visualized, included lung apices are grossly clear. No acute osseous abnormality detected. IMPRESSION: 1. Few prominent bilateral upper cervical lymph nodes without necrosis or calcification are likely reactive. Suggested clinical and lab correlation. Compared to the previous ultrasound dated October 30, 2024, no significant interval change. /Meta
--- NOTE | 2024-11-02 14:41 | PN ---
INFECTIOUS DISEASE PROGRESS NOTE Date of Service: Nov 02, 2024 SUBJECTIVE: Patient was seen and examined at bedside in room 228. Patient is awake, alert and oriented x3. Able to ambulate without difficulty. No fever, temperature is 98.1. We will continue on Zosyn IV. Still pending HIV RNA and the hepatitis panel. From Infectious Disease standpoint patient can be discharged to home on Ceftin x 5 days when ready to discharge. Prescription was written. Patient will need to follow up with Dr. Morejon in 2 weeks for the HIV RNA and hepatitis panel results. PHYSICAL EXAM EYES: Anicteric. Pupils equal and reactive. HENT: No oral thrush seen, moist Oral mucosa. NECK: Supple, no JVD or thyromegaly. LUNGS: Good air entry. No rales, no rhonchi. CARDIOVASCULAR: S1, S2 regular. No murmur heard. ABDOMEN: Soft, non tender, bowel sounds present, no organomegaly. CENTRAL NERVOUS SYSTEM: Awake, alert, oriented x 3. SKIN: No rashes, no swelling. LYMPHATICS: No peripheral lymphadenopathy. MUSCULOSKELETAL: No joint swelling, erythema or tenderness. EXTREMITIES: No cyanosis or clubbing. BACK: No deformity, no pressure ulcer. GENITOURINARY: No dysuria or hematuria. Vital Sign (Last 12 Hours) 11/02/24 11/02/24 11/02/24 11/02/24 03:17 08:00 08:00 12:00 Temp 97.5 98.1 97.9 Pulse 57 65 65 Resp 16 18 18 B/P (MAP) 112/63 163/90 121/68 Pulse Ox 94 99 99 96 O2 Delivery Room Air* Room Air Room Air O2 Flow Rate 0 FiO2 21 Intake & Output (last 24hrs) 11/01/24 11/01/24 11/02/24 14:59 22:59 06:59 Intake Total 650.0 ml 1300.0 ml Output Total 800 ml Balance 650.0 ml 500.0 ml LABS: Laboratory: Test 11/02/24 11:20 11/02/24 04:02 11/01/24 05:21 Range/Units Reticulocyte Count (auto) 1.95084 0.42-2.23 % Immature Reticulocyte Fraction 11.00 H 0.18-0.48 % Iron Level 52 50-170 mcg/dL Total Iron Binding Capacity 284 250-450 mcg/dL Percent Iron Saturation 18.3 L 22-44 % Ferritin 144 15-150 ng/mL Vitamin B12 Level 340 193-986 pg/mL White Blood Count 2.7 L 4.8-10.8 K/uL Red Blood Count 3.66 L 4.00-5.50 MIL/uL Hemoglobin 10.4 L 12.0-16.0 g/dL Hematocrit 31.8 L 36-48 % Mean Corpuscular Volume 86.9 79-99 fL Mean Corpuscular Hemoglobin 28.4 27.0-33.0 pg Mean Corpuscular Hemoglobin Concent 32.7 32.0-36.0 g/dL Red Cell Distribution Width 14.2 11.0-15.5 % Platelet Count 120 L 130-400 K/uL Mean Platelet Volume 9.5 7.5-10.5 fL Immature Granulocyte % (Auto) 0.0 0-1 % Neutrophils (%) (Auto) 60.0 40.0-77.0 % Lymphocytes (%) (Auto) 26.0 21.0-51.0 % Monocytes (%) (Auto) 10.2 3.0-13.0 % Eosinophils (%) (Auto) 3.4 0.0-8.0 % Basophils (%) (Auto) 0.4 0.0-5.0 % Neutrophils # (Auto) 1.6 L 1.8-7.7 K/uL Lymphocytes # (Auto) 0.7 L 1.0-4.8 K/uL Monocytes # (Auto) 0.3 0.1-1.0 K/uL Eosinophils # (Auto) 0.09 0.00-0.70 K/uL Basophils # (Auto) 0.01 0.00-0.20 K/uL Absolute Immature Granulocyte (auto 0.00 0-1 K/uL Segmented Neutrophils % 62 40-70 % Lymphocytes % (Manual) 27 22-44 % Monocytes % (Manual) 9 2-9 % Eosinophils % (Manual) 2 1-6 % Nucleated Red Blood Cells 0.0 0.0-0.19 % Differential Comment MANUAL DIFFERENTIAL White Cell Morphology Comment Platelet Morphology Comment See comments Red Blood Cell Morphology HYPOCHROM CELLS 1+ Sodium Level 139 136-145 mmol/L Potassium Level 4.2 3.5-5.1 mmol/L Chloride Level 105 101-111 mmol/L Carbon Dioxide Level 29 21-32 mmol/L Blood Urea Nitrogen 4 L 7-18 mg/dL Creatinine 0.4 L 0.5-1.0 mg/dL Glomerular Filtration Rate Calc 113 >90 mL/min Random Glucose 80 70-105 mg/dL Total Calcium 8.6 8.5-10.1 mg/dL Total Bilirubin 0.9 0.2-1.0 mg/dL Aspartate Amino Transf (AST/SGOT) 29 10-37 U/L Alanine Aminotransferase (ALT/SGPT) 32 12-78 U/L Alkaline Phosphatase 83 50-136 U/L Total Protein 7.0 6.0-8.3 g/dL Albumin 3.2 L 3.5-5.0 g/dL ASSESSMENT: Urinary tract infection. Possible infectious gastroenteritis. Hypokalemia. Hypothyroidism. Suspected HIV infection, pending HIV RNA results. PLAN: Continue Zosyn. From Infectious Disease standpoint patient can be discharged on Ceftin x 5 days when ready to discharge. Prescription was written. Follow up with Dr. Morejon in 2 weeks for the HIV RNA and hepatitis panel results. This case was reviewed and discussed with my supervising physician and the above assessment and plan was formulated and agreed upon. ATTESTATION BY PHYSICIAN I have seen and examined the patient. I reviewed the documentation, medical decision making, and treatment plan as noted by the mid-level provider above. I agree with the findings and plan of care. CRESCENCIO MOREJON MD, [facility]TA [facility] Nov 02, 2024 14:41
[2024-11-02 16:00] VITALS: BP 149/78; PULSE 65; RESP 18; TEMP 97.5
--- NOTE | 2024-11-02 18:40 | NUR ---
BEDSIDE SWALLOW RE-EVALUATION COMPLETED. No s/s of aspiration. Recommend easy to chew solids, thin liquids and pills whole 1 per swallow or crushed as tolerated. Compensatory strategies: 1. sit upright during oral intake 2. small bites/sips 3. slow oral intake [employer] M[employer]INE OPERATOR reviewed results and recommendations with patient, family and nurse Fatuma. [employer] MACHINE OPERATOR educated patient on risks and consequences of aspiration. Speech therapy not warranted at this time. All questions answered. Addendum: 11/03/[address] [facility] Amended: Links added.
[2024-11-02 20:00] VITALS: BP 122/78; PULSE 61; RESP 18; TEMP 98.3; O2SAT 98
--- NOTE | 2024-11-02 21:25 | PN ---
[facility] PROGRESS NOTE Date Patient Seen: Nov 02, 2024 Time of Visit: 21:21 Supervising Physician: Dr. Valle Primary Care Physician: Stephenie Laureano MD Outpatient Specialists: [ ] Inpatient Consults: GI, ID, Hemonc PROBLEM LIST: Severe hypokalemia, POA, resolved Sepsis, POA, resolving Acute cystitis POA Chronic Diarrhea -s/p colonoscopy on 11/01/24 without acute abnormalities Hypothyroidism Cervical Lymphadenopathy POA Thrombocytopenia Suspected HIV infection pending RNA result INTERVAL HISTORY: Patient was evaluated at bedside today. States that she continues with diarrhea at this time. Colonoscopy from yesterday showed no acute findings. She continues on Zosyn today, remains on room air with a white count of 2.7. Currently pending HIV RNA PCR to confirm diagnosis. 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 Patient's labs were otherwise unremarkable, she denies any acute distress in his in agreement with the current treatment plan. Disposition per primary. REVIEW OF SYSTEMS: 12 point ROS reviewed with patient. Pertinent positives mentioned above. Otherwise negative. PHYSICAL EXAM: GENERAL: alert, weak, awake oriented x 3 HEENT: EOMI, Sclera non icteric, moist mucosa NECK: Supple, no JVD, trachea midline LUNGS: Clear breath sounds bilaterally. No wheezes HEART: Regular rate and rhythm. Normal S1 and S2, without murmurs ABD: Abdomen soft, nontender. Bowel sounds present EXT: No clubbing cyanosis or edema NEURO: Alert and oriented to person, follows commands Vital Signs (last 8hr) Date Time Temp Pulse Resp B/P (MAP) Pulse Ox O2 Delivery O2 Flow Rate FiO2 11/02/24 16:00 97.5 65 18 149/78 96 Room Air LABS: Hematology Labs: Test 11/02/24 11:20 11/02/24 04:02 Range/Units Reticulocyte Count (auto) 1.88730 0.42-2.23 % Immature Reticulocyte Fraction 11.00 H 0.18-0.48 % White Blood Count 2.7 L 4.8-10.8 K/uL Red Blood Count 3.66 L 4.00-5.50 MIL/uL Hemoglobin 10.4 L 12.0-16.0 g/dL Hematocrit 31.8 L 36-48 % Mean Corpuscular Volume 86.9 79-99 fL Mean Corpuscular Hemoglobin 28.4 27.0-33.0 pg Mean Corpuscular Hemoglobin Concent 32.7 32.0-36.0 g/dL Red Cell Distribution Width 14.2 11.0-15.5 % Platelet Count 120 L 130-400 K/uL Mean Platelet Volume 9.5 7.5-10.5 fL Immature Granulocyte % (Auto) 0.0 0-1 % Neutrophils (%) (Auto) 60.0 40.0-77.0 % Lymphocytes (%) (Auto) 26.0 21.0-51.0 % Monocytes (%) (Auto) 10.2 3.0-13.0 % Eosinophils (%) (Auto) 3.4 0.0-8.0 % Basophils (%) (Auto) 0.4 0.0-5.0 % Neutrophils # (Auto) 1.6 L 1.8-7.7 K/uL Lymphocytes # (Auto) 0.7 L 1.0-4.8 K/uL Monocytes # (Auto) 0.3 0.1-1.0 K/uL Eosinophils # (Auto) 0.09 0.00-0.70 K/uL Basophils # (Auto) 0.01 0.00-0.20 K/uL Absolute Immature Granulocyte (auto 0.00 0-1 K/uL Segmented Neutrophils % 62 40-70 % Lymphocytes % (Manual) 27 22-44 % Monocytes % (Manual) 9 2-9 % Eosinophils % (Manual) 2 1-6 % Nucleated Red Blood Cells 0.0 0.0-0.19 % Differential Comment MANUAL DIFFERENTIAL White Cell Morphology Comment Platelet Morphology Comment See comments Red Blood Cell Morphology HYPOCHROM CELLS 1+ Chemistry Labs: Test 11/02/24 11:20 11/02/24 04:02 11/01/24 05:21 Range/Units Iron Level 52 50-170 mcg/dL Total Iron Binding Capacity 284 250-450 mcg/dL Percent Iron Saturation 18.3 L 22-44 % Ferritin 144 15-150 ng/mL Vitamin B12 Level 340 193-986 pg/mL Sodium Level 139 136-145 mmol/L Potassium Level 4.2 3.5-5.1 mmol/L Chloride Level 105 101-111 mmol/L Carbon Dioxide Level 29 21-32 mmol/L Blood Urea Nitrogen 4 L 7-18 mg/dL Creatinine 0.4 L 0.5-1.0 mg/dL Glomerular Filtration Rate Calc 113 >90 mL/min Random Glucose 80 70-105 mg/dL Total Calcium 8.6 8.5-10.1 mg/dL Total Bilirubin 0.9 0.2-1.0 mg/dL Aspartate Amino Transf (AST/SGOT) 29 10-37 U/L Alanine Aminotransferase (ALT/SGPT) 32 12-78 U/L Alkaline Phosphatase 83 50-136 U/L Total Protein 7.0 6.0-8.3 g/dL Albumin 3.2 L 3.5-5.0 g/dL DIAGNOSTICS / RADIOLOGY RESULTS: [ ] PLAN: NEURO: Minimize central acting medications as possible. Maintain fall precautions, adequate lighting during the day PULMONARY: Supplemental 02 as needed. Maintain aspiration precautions at all times CARDIOVASCULAR: Follow hemodynamics. Vital signs per facility protocol GI & NUTRITION: Continue with nutritional support. Continue stool softeners and laxatives as needed. KIDNEYS & ELECTROLYTES: Strict monitoring of intake, output and overall fluid balance. Avoid nephrotoxic medications to the extent possible. Medications to be dosed according to renal function. Monitor electrolytes and replace as needed ENDOCRINE: Maintain blood glucose between 100-180 at all times. Hypoglycemia protocol in place INFECTIOUS DISEASE: Trend temperature, WBC and procalcitonin level Follow cultures, deescalate antibiotics as soon as possible. Panculture if new onset fever ONCOLOGY/HEMATOLOGY/COAGULATION: Monitor for s/s of bleeding Monitor hemoglobin, coagulation studies as needed SKIN: Pressure ulcer prevention per facility protocol Specialty mattress ORTHO/REHAB: Continue PT/OT Prophylaxis: Continue GI and DVT prophylaxis Code Status: Full Resuscitation Disposition: TBD Other: Total patient care time 36 minutes excluding all procedures. FABIAN MCKINLEY Nov 02, 2024 21:25
[2024-11-03] VITALS: BP 101/64; PULSE 57; RESP 18; TEMP 98.3
[2024-11-03 04:00] VITALS: BP 98/59; PULSE 48; RESP 18; TEMP 98.3
[2024-11-03 04:22] LABS: IMMATURE GRANULOCYTE ABSOLUTE 0.01 K/uL (0-1); NUCLEATED RED BLOOD CELLS 0.0 % (0.0-0.19); PLATELET COUNT (AUTO) 138 K/uL (130-400); RED BLOOD CELL COUNT(AUTO) 3.80 MIL/uL (4.00-5.50); RED CELL DISTRIBUTION WIDTH 14.0 % (11.0-15.5); WHITE BLOOD COUNT (AUTO) 2.6 K/uL (4.8-10.8)
[2024-11-03 04:35] LABS: CREATININE 0.6 mg/dL (0.5-1.0); GLOMERULAR FILTR. RATE CALC 102.0 mL/min (>90); GLUCOSE,RANDOM 83.0 mg/dL (70-105); SODIUM SERUM 140.0 mmol/L (136-145); UREA NITROGEN, BLOOD 4.0 mg/dL (7-18)
[2024-11-03 07:25] VITALS: O2SAT 98
[2024-11-03 08:00] VITALS: BP 142/72; PULSE 75; RESP 20; TEMP 98.9
--- NOTE | 2024-11-03 12:00 | NUR ---
pt report was given to Filomena keene from 2rd floor and pt will go to 303 by w/c. Iv fluids with K+ was dc'd and refusal of bed alarm was signed prior to transfer to room 303.
[2024-11-03 12:25] VITALS: BP 127/77; PULSE 68; RESP 18; TEMP 97.8
[2024-11-03] MEDS ORDERED: PHARMACY COMMUNICATION MISC SCH (13:00)
--- NOTE | 2024-11-03 14:48 | NUR ---
SPEECH NOTE: FOLLOW UP CAN DRYER coordinated with nurse Jason Laura and Ngozi. Pt with no overt s/s of aspiration or complains with diet recommendations of easy to chew solids, thin liquids. Please re-consult speech therapy services if any s/s of aspiration arise. All questions answered. Addendum: 11/03/[address] [facility] Amended: Links added.
[2024-11-03 14:54] LABS: HEPATITIS A IGM ANTIBODY Non-Reactive (Nonreactive); HEPATITIS B CORE IGM ANTIBODY Non-Reactive (Negative)
--- NOTE | 2024-11-03 14:55 | PN ---
[facility] PROGRESS NOTE Date Patient Seen: Nov 03, 2024 Time of Visit: 14:55 Supervising Physician: Dr. Valle Primary Care Physician: Stephenie Laureano MD Outpatient Specialists: [ ] Inpatient Consults: GI, ID, Hemonc PROBLEM LIST: Severe hypokalemia, POA, resolved Sepsis, POA, resolving Acute cystitis POA, treating Chronic Diarrhea -s/p colonoscopy on 11/01/24 without acute abnormalities Hypothyroidism Cervical Lymphadenopathy POA Thrombocytopenia Suspected HIV infection pending RNA result INTERVAL HISTORY: Patient evaluated at bedside today, she continues with episodic diarrhea. Colonoscopy on this admission with no acute findings. She is on room air at this time he continues on Zosyn, she denies any acute distress outside of her recurrent diarrhea. HIV PCR test is still pending. She denies any nausea or vomiting. Several studies regarding stool cultures still ongoing. Patient's white count is 2.6 with a hemoglobin of 10.8. Infectious diseases currently on board with the case. At this point [facility] will sign off the richar e, thank you for allowing us to participate in the care of this patient. REVIEW OF SYSTEMS: 12 point ROS reviewed with patient. Pertinent positives mentioned above. Otherwise negative. PHYSICAL EXAM: GENERAL: alert, weak, awake oriented x 3 HEENT: EOMI, Sclera non icteric, moist mucosa NECK: Supple, no JVD, trachea midline LUNGS: Clear breath sounds bilaterally. No wheezes HEART: Regular rate and rhythm. Normal S1 and S2, without murmurs ABD: Abdomen soft, nontender. Bowel sounds present EXT: No clubbing cyanosis or edema NEURO: Alert and oriented to person, follows commands Vital Signs (last 8hr) Date Time Temp Pulse Resp B/P (MAP) Pulse Ox O2 Delivery O2 Flow Rate FiO2 11/03/24 12:25 97.9 68 18 127/77 98 11/03/24 08:00 99.0 75 20 142/72 97 Room Air 11/03/24 07:25 98 Room Air* 0 21 LABS: Hematology Labs: Test 11/03/24 04:00 11/02/24 11:20 11/02/24 04:02 Range/Units White Blood Count 2.6 L 4.8-10.8 K/uL Red Blood Count 3.80 L 4.00-5.50 MIL/uL Hemoglobin 10.8 L 12.0-16.0 g/dL Hematocrit 32.9 L 36-48 % Mean Corpuscular Volume 86.6 79-99 fL Mean Corpuscular Hemoglobin 28.4 27.0-33.0 pg Mean Corpuscular Hemoglobin Concent 32.8 32.0-36.0 g/dL Red Cell Distribution Width 14.0 11.0-15.5 % Platelet Count 138 130-400 K/uL Mean Platelet Volume 9.8 7.5-10.5 fL Immature Granulocyte % (Auto) 0.4 0-1 % Neutrophils (%) (Auto) 50.9 40.0-77.0 % Lymphocytes (%) (Auto) 32.2 21.0-51.0 % Monocytes (%) (Auto) 11.8 3.0-13.0 % Eosinophils (%) (Auto) 3.9 0.0-8.0 % Basophils (%) (Auto) 0.8 0.0-5.0 % Neutrophils # (Auto) 1.3 L 1.8-7.7 K/uL Lymphocytes # (Auto) 0.8 L 1.0-4.8 K/uL Monocytes # (Auto) 0.3 0.1-1.0 K/uL Eosinophils # (Auto) 0.10 0.00-0.70 K/uL Basophils # (Auto) 0.02 0.00-0.20 K/uL Absolute Immature Granulocyte (auto 0.01 0-1 K/uL Nucleated Red Blood Cells 0.0 0.0-0.19 % Reticulocyte Count (auto) 1.51899 0.42-2.23 % Immature Reticulocyte Fraction 11.00 H 0.18-0.48 % Segmented Neutrophils % 62 40-70 % Lymphocytes % (Manual) 27 22-44 % Monocytes % (Manual) 9 2-9 % Eosinophils % (Manual) 2 1-6 % Differential Comment MANUAL DIFFERENTIAL White Cell Morphology Comment Platelet Morphology Comment See comments Red Blood Cell Morphology HYPOCHROM CELLS 1+ Chemistry Labs: Test 11/03/24 04:00 11/02/24 11:20 Range/Units Sodium Level 140 136-145 mmol/L Potassium Level 4.1 3.5-5.1 mmol/L Chloride Level 105 101-111 mmol/L Carbon Dioxide Level 31 21-32 mmol/L Blood Urea Nitrogen 4 L 7-18 mg/dL Creatinine 0.6 0.5-1.0 mg/dL Glomerular Filtration Rate Calc 102 >90 mL/min Random Glucose 83 70-105 mg/dL Total Calcium 8.5 8.5-10.1 mg/dL Iron Level 52 50-170 mcg/dL Total Iron Binding Capacity 284 250-450 mcg/dL Percent Iron Saturation 18.3 L 22-44 % Ferritin 144 15-150 ng/mL Vitamin B12 Level 340 193-986 pg/mL DIAGNOSTICS / RADIOLOGY RESULTS: [ ] PLAN: NEURO: Minimize central acting medications as possible. Maintain fall precautions, adequate lighting during the day PULMONARY: Supplemental 02 as needed. Maintain aspiration precautions at all times CARDIOVASCULAR: Follow hemodynamics. Vital signs per facility protocol GI & NUTRITION: Continue with nutritional support. Continue stool softeners and laxatives as needed. KIDNEYS & ELECTROLYTES: Strict monitoring of intake, output and overall fluid balance. Avoid nephrotoxic medications to the extent possible. Medications to be dosed according to renal function. Monitor electrolytes and replace as needed ENDOCRINE: Maintain blood glucose between 100-180 at all times. Hypoglycemia protocol in place INFECTIOUS DISEASE: Trend temperature, WBC and procalcitonin level Follow cultures, deescalate antibiotics as soon as possible. Panculture if new onset fever ONCOLOGY/HEMATOLOGY/COAGULATION: Monitor for s/s of bleeding Monitor hemoglobin, coagulation studies as needed SKIN: Pressure ulcer prevention per facility protocol Specialty mattress ORTHO/REHAB: Continue PT/OT Prophylaxis: Continue GI and DVT prophylaxis Code Status: Full Resuscitation Disposition: TBD Other: Total patient care time 36 minutes excluding all procedures. FABIAN MCKINLEY Nov 03, 2024 14:55
--- NOTE | 2024-11-03 15:28 | PN ---
INFECTIOUS DISEASE PROGRESS NOTE Date of Service: Nov 03, 2024 SUBJECTIVE: Patient was seen and examined at bedside in room 228. Patient is awake, alert and oriented x3. Patient reported that she continues with diarrhea. Patient can be given Lomotil p.r.n. for diarrhea. We will continue on Zosyn IV. Still pending HIV RNA and the hepatitis panel. PHYSICAL EXAM EYES: Anicteric. Pupils equal and reactive. HENT: No oral thrush seen, moist Oral mucosa. NECK: Supple, no JVD or thyromegaly. LUNGS: Good air entry. No rales, no rhonchi. CARDIOVASCULAR: S1, S2 regular. No murmur heard. ABDOMEN: Soft, non tender, bowel sounds present, no organomegaly. CENTRAL NERVOUS SYSTEM: Awake, alert, oriented x 3. SKIN: No rashes, no swelling. LYMPHATICS: No peripheral lymphadenopathy. MUSCULOSKELETAL: No joint swelling, erythema or tenderness. EXTREMITIES: No cyanosis or clubbing. BACK: No deformity, no pressure ulcer. GENITOURINARY: No dysuria or hematuria. Vital Sign (Last 12 Hours) 11/03/24 11/03/24 11/03/24 11/03/24 04:00 07:25 08:00 12:25 Temp 98.2 99.0 97.9 Pulse 48 75 68 Resp 18 20 18 B/P (MAP) 98/59 142/72 127/77 Pulse Ox 97 98 97 98 O2 Delivery Room Air Room Air* Room Air O2 Flow Rate 0 FiO2 21 Intake & Output (last 24hrs) 11/02/24 11/02/24 11/03/24 15:00 23:00 07:00 Intake Total 50.0 ml 1380.0 ml 737.5 ml Output Total 1600 ml 2200 ml 800 ml Balance -1550.0 ml -820.0 ml -62.5 ml LABS: Laboratory: Test 11/03/24 04:00 11/02/24 11:20 11/02/24 04:02 Range/Units White Blood Count 2.6 L 4.8-10.8 K/uL Red Blood Count 3.80 L 4.00-5.50 MIL/uL Hemoglobin 10.8 L 12.0-16.0 g/dL Hematocrit 32.9 L 36-48 % Mean Corpuscular Volume 86.6 79-99 fL Mean Corpuscular Hemoglobin 28.4 27.0-33.0 pg Mean Corpuscular Hemoglobin Concent 32.8 32.0-36.0 g/dL Red Cell Distribution Width 14.0 11.0-15.5 % Platelet Count 138 130-400 K/uL Mean Platelet Volume 9.8 7.5-10.5 fL Immature Granulocyte % (Auto) 0.4 0-1 % Neutrophils (%) (Auto) 50.9 40.0-77.0 % Lymphocytes (%) (Auto) 32.2 21.0-51.0 % Monocytes (%) (Auto) 11.8 3.0-13.0 % Eosinophils (%) (Auto) 3.9 0.0-8.0 % Basophils (%) (Auto) 0.8 0.0-5.0 % Neutrophils # (Auto) 1.3 L 1.8-7.7 K/uL Lymphocytes # (Auto) 0.8 L 1.0-4.8 K/uL Monocytes # (Auto) 0.3 0.1-1.0 K/uL Eosinophils # (Auto) 0.10 0.00-0.70 K/uL Basophils # (Auto) 0.02 0.00-0.20 K/uL Absolute Immature Granulocyte (auto 0.01 0-1 K/uL Nucleated Red Blood Cells 0.0 0.0-0.19 % Sodium Level 140 136-145 mmol/L Potassium Level 4.1 3.5-5.1 mmol/L Chloride Level 105 101-111 mmol/L Carbon Dioxide Level 31 21-32 mmol/L Blood Urea Nitrogen 4 L 7-18 mg/dL Creatinine 0.6 0.5-1.0 mg/dL Glomerular Filtration Rate Calc 102 >90 mL/min Random Glucose 83 70-105 mg/dL Total Calcium 8.5 8.5-10.1 mg/dL Reticulocyte Count (auto) 1.95776 0.42-2.23 % Immature Reticulocyte Fraction 11.00 H 0.18-0.48 % Iron Level 52 50-170 mcg/dL Total Iron Binding Capacity 284 250-450 mcg/dL Percent Iron Saturation 18.3 L 22-44 % Ferritin 144 15-150 ng/mL Vitamin B12 Level 340 193-986 pg/mL Segmented Neutrophils % 62 40-70 % Lymphocytes % (Manual) 27 22-44 % Monocytes % (Manual) 9 2-9 % Eosinophils % (Manual) 2 1-6 % Differential Comment MANUAL DIFFERENTIAL White Cell Morphology Comment Platelet Morphology Comment See comments Red Blood Cell Morphology HYPOCHROM CELLS 1+ ASSESSMENT: Urinary tract infection. Possible infectious gastroenteritis. Hypokalemia. Hypothyroidism. Suspected HIV infection, pending HIV RNA results. PLAN: Continue Zosyn. Continue GI prophylaxis. From Infectious Disease standpoint patient can be discharged on Ceftin x 5 days when ready to discharge. Prescription was written. Give Lomotil as needed for diarrhea. Follow up with Dr. Morejon in 2 weeks for the HIV RNA and hepatitis panel results. This case was reviewed and discussed with my supervising physician and the above assessment and plan was formulated and agreed upon. ATTESTATION BY PHYSICIAN I have seen and examined the patient. I reviewed the documentation, medical decision making, and treatment plan as noted by the mid-level provider above. I agree with the findings and plan of care. CRESCENCIO MOREJON MD, [facility] Nov 03, 2024 15:28
[2024-11-03] MEDS ORDERED: DIPHENOXYLATE HCL/ATROPINE 2.5/0.025 MG TAB PO PRN (15:30)
[2024-11-03 16:00] VITALS: BP 120/66; PULSE 67; RESP 18; TEMP 97.7
[2024-11-03] MEDS ORDERED: POTA-202 PO (16:07)
[2024-11-03] MEDS ORDERED: Diphenoxylate Hcl/Atropine PO (16:07)
--- NOTE | 2024-11-03 16:54 | DS ---
Discharge Summary Hospital Course Summary: 59 year old female with PMH of osteoarthritis (s/p R and L total knee arthroplasty ),hypothyroidism , hypokalemia ,covid infection(August 2024), chronic diarrhea (>1 year, under evaluation ) presented to ER with c/o fever, chills , cough, palpitations and generalized weakness. Patient reports that she has been experiencing chest pain and palpitations on a daily basis . She has at least a 10 watery bowel movements (bloody occasionally )a day for the past1 year and she had underwent extensive evaluation including colonoscopy and EGDscopy elsewhere without any an established diagnosis. She also states that she has lost at least 50 lbs in past 1 year. 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 She attributes her coughing to this. She denies smoking, alcohol or drug abuse. At the time of presentation her temperature was 102 F, heart rate 106, respiratory rate 19, blood pressure 130/75, SpO2 100% on room air. Labs were remarkable for WBC 8.2, hemoglobin 12.1, lactic acid 2.1, potassium 1.9, magnesium 1.3, bilirubin 1.5, AST 62, procalcitonin 7.47, CK 261. EKG showed normal sinus rhythm with a nonspecific STT wave changes. CT abdomen and pelvis showed acute enterocolitis with a right diaphragmatic eventration, liver parenchymal disease, splenomegaly and prominent dilated ileo renal collaterals i nto left renal vein. She was admitted for further evaluation and management of sepsis and severe hypokalemia on 10/30/2024. Patient was admitted to the ICU for management of her hypokalemia which were corrected using potassium supplementation. Infectious diseases and Gastroenterology were consulted regarding her symptoms. Infectious Disease sent this patient's stools for PCR and started evaluating for Tropheryma due to her history. Patient was placed on Zosyn IV for her sepsis as per ID recommendations. Her vitals started to stabilize around day 2. Stool PCR did not reveal any organism. Patient also underwent a HIV test which returned as preliminary positive and a 4th generation HIV test was negative, hence HIV RNA test was sent for confirmation of her HIV diagnosis. Patient was also evaluated for hepatitis and a hepatitis panel was ordered which came back as nonreactive. Gastroenterology evaluated the patient and recommended a colonoscopy which was performed on 11/01/2024 which was unrevealing for any acute pathology. They took biopsy of the colon during the colonoscopy and advised the patient to follow up with them as an outpatient for the pathology results. On 11/03/2024, the patient was deemed clinically stable. Patient still complained of episode of watery diarrhea on however she was able to tolerate a regular diet. Based on the clinical evaluation the decision was made to discharge the patient with advice to follow up with Infectious diseases regarding her HIV panel and Tropheryma tests. She was also advised to follow up with Gastroenterology for evaluation of her biopsy results. Patient will be discharged on potassium supplementation and Ceftin for 5 days. Captain Assistant(s): Captain Assistant: Infectious diseases ASSESSMENT: Urinary tract infection. Possible infectious gastroenteritis. Hypokalemia. Hypothyroidism. Suspected HIV infection, pending HIV RNA results. PLAN: Continue Zosyn. Continue GI prophylaxis. From Infectious Disease standpoint patient can be discharged on Ceftin x 5 days when ready to discharge. Prescription was written. Give Lomotil for diarrhea. Follow up with Dr. Cox in 2 weeks for the HIV RNA and hepatitis panel results. Captain Assistant: gastroenterology: Assessment: Diarrhea [Hyperbilirubinemia Enterocolitis HIV ] Plan: Case discussed with Dr. Jean-Baptiste [Clear fluids today NPO after midnight Tap water enemas x 2 at 2000 and repeat at 0500 Plan for Colonoscopy in am--Risks and benefits of procedure explained to patient. All her questions were answered and she agreed to proceed with exam. Please call with questions, concerns, and change in clinical status. ] Consultants; pulmonary and Critical Care Medicine: INTERVAL HISTORY: Patient was evaluated at bedside today. States that she continues with diarrhea at this time. Colonoscopy from yesterday showed no acute findings. She continues on Zosyn today, remains on room air with a white count of 2.7. Currently pending HIV RNA PCR to confirm diagnosis. 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 Patient's labs were otherwise unremarkable, she denies any acute distress in his in agreement with the current treatment plan. Disposition per primary. Procedure(s): [facility] [address] [place] [address] IMAGING REPORT Signed PATIENT: ENRIQUE NUÑEZ MR#: [id number] : 1965 SEX: F AGE: 59 LOCATION: [facility] ORDER STATUS: REG ER REPORT#: [id number] SERVICE REASON: sepsis ORDERING PHYSICIAN: BLAIR FAUST MD PROCEDURE: CXR1VW - CHEST 1VW EXAM: CR Chest, 1 view. CLINICAL HISTORY: Sepsis. COMPARISON: Prior chest radiograph dated 30 August 2024. FINDINGS: Elevated right hemidiaphragm consistent with right diaphragmatic eventration. The lungs show no infiltrate or other acute findings. No pleural effusion or pneumothorax. The cardiomediastinal silhouette is within normal limits. No acute osseous abnormality. 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 No acute cardiopulmonary pathology is evident. Compared to the prior study, there is no significant interval change. /[place] DICTATED BY: ERICKA DALEY Jr., MD DATE: 10/30/24325 ELECTRONICALLY SIGNED BY: ERICKA DALEY Jr., MD DATE: 10/30/24325 [place] [address] IMAGING REPORT Signed PATIENT: ENRIQUE NUÑEZ MR#: [id number] : 1965 SEX: F AGE: 59 [facility] STATUS: ADM IN REPORT#: [id number] SERVICE REASON: chronic diarrhea fever ORDERING PHYSICIAN: BLAIR FAUST MD PROCEDURE: ABD PEL W - CT ABDOMEN/PELVIS W/CONTRAST EXAM: CT Abdomen and Pelvis with IV contrast CLINICAL HISTORY: Chronic diarrhea. TECHNIQUE: Thin collimated axial CT images of the abdomen and pelvis were obtained, with sagittal and coronal reformatted images also submitted. A CT scan is done according to ALARA (As Low As Reasonably Achievable). CONTRAST: Contrast information is not available. COMPARISON: None. FINDINGS: Unremarkable visualized lung parenchyma. 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 Mild heterogeneous coarse attenuation of the liver, probably changes of liver parenchymal disease. Borderline splenomegaly. Prominent dilated lienorenal collaterals ending into the left renal vein. Post cholecystectomy status. No obvious focal lesion in the adrenal glands, pancreas, or the kidneys. No focal abnormality within the liver, gallbladder, pancreas, spleen, adrenals, or kidneys. Nondilated fluid-filled small and large bowel loops with mild diffuse mucosal thickening, concerning acute enterocolitis. 0.6 cm enhancing focus around the anal region, could be hemorrhoid. Mild hiatus hernia. No features of bowel obstruction or ileus. The appendix is normal. There is no abnormality within the urinary bladder. Unremarkable reproductive organs. Abdominal and pelvic vessels are patent. Minimal atherosclerotic calcification of the infrarenal aorta and bilateral common iliac arteries. No lymphadenopathy. No free fluid. There is no acute osseous abnormality. Mild degenerative changes in the sacroiliac, superolateral joint, and multilevel degenerative facet arthropathy. IMPRESSIONS: Mild acute enterocolitis. Questionable mild hemorrhoids. Mild hiatus hernia. 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 Mild heterogeneous coarse attenuation of the liver, probably changes of liver parenchymal disease. Borderline splenomegaly. Prominent dilated lienorenal collaterals ending into the left renal vein. No focal lesion in the pancreas or features of pancreatitis. /[place] DICTATED BY: ERICKA DALEY Jr., MD DATE: 10/30/24543 ELECTRONICALLY SIGNED BY: ERICKA DALEY Jr., MD DATE: 10/30/24543 [place] [address] IMAGING REPORT Signed PATIENT: ENRIQUE NUÑEZ MR#: [id number] : 1965 SEX: F AGE: 59 LOCATION: [facility] ORDER 58 STATUS: ADM IN REPORT#: [id number] SERVICE 1638 REASON: C/C COUGH, WEIGHT LOSS ORDERING PHYSICIAN: VELASQUEZ PINEDA MD PROCEDURE: CHEST WO - CT CHEST W/O CONTRAST EXAM: CT Chest Without Contrast. CLINICAL HISTORY: Cough and weight loss. TECHNIQUE: Thin collimated axial CT images of the chest were obtained, with sagittal and coronal reformatted images also submitted. CT scan done according to ALARA (As Low as Reasonably Achievable). CONTRAST USED: None. COMPARISON: X-ray dated October 30, 2024. FINDINGS: Mild atelectasis in the right basal segment. No collapse or consolidation. No pulmonary nodules. No pleural effusions. No pericardial effusion. The heart size is within normal limits. Mild calcification of the coronary arteries with mild atherosclerotic changes in the aorta. No axillary, supraclavicular, or mediastinal lymphadenopathy. No focal thyroid abnormality. 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 No acute or suspicious osseous abnormality. IMPRESSION: 1. No pulmonary infiltrate or effusion. 2. No suspicious lung nodule. Lung RADS category 1. Continue annual screening with LDCT. 3. 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 4. Mild coronary artery disease with atherosclerosis. /[place] DICTATED BY: CHAD LILLY MD DATE: 10/31/24850 ELECTRONICALLY SIGNED BY: CHAD LILLY MD DATE: 10/31/24850 [place] [id number] IMAGING REPORT Signed PATIENT: ENRIQUE NUÑEZ MR#: [id number] : 1965 SEX: F AGE: 59 LOCATION: [facility] ORDER 1659 STATUS: ADM IN [facility] REPORT#: [id number] SERVICE 1638 REASON: HISTORY OF ?NECK MASSES ,DYSPHAGIA ORDERING PHYSICIAN: VELASQUEZ PINEDA MD PROCEDURE: SOFT NECK - US SOFT TISSUE NECK EXAMINATION: SOFT TISSUE ULTRASOUND OF THE NECK. CLINICAL HISTORY: Neck mass and dysphagia. COMPARISON: CT chest without contrast from the same day. TECHNIQUE: Transverse and longitudinal images were obtained in the neck. FINDINGS: There are lymph nodes that measure 0.4 x 0.4 x 0.5 cm, 0.8 x 0.5 x 1.1 cm, 0.4 x 0.2 x 0.3 cm in the right side of the neck and 0.7 x 0.4 x 0.8 cm, 0.9 x 1.0 x 0.5 cm in the left side of the neck. Hilar echoes are maintained. No increased vascularity. IMPRESSION: Bilateral cervical lymph nodes. Recommend CT neck with contrast for further evaluation. /[place] DICTATED BY: CHAD LILLY MD DATE: 10/31/24716 ELECTRONICALLY SIGNED BY: CHAD LILLY MD DATE: 10/31/24716 [place] [id number] IMAGING REPORT Signed PATIENT: ENRIQUE NUÑEZ MR#: [id number] : 1965 SEX: F AGE: 59 LOCATION: [facility] ORDER 2300 STATUS: ADM IN REPORT#: [id number] SERVICE 0600 REASON: cervical lymphadenopathy ORDERING PHYSICIAN: KHUSHI KRAMER MD PROCEDURE: NKSOFTI W - CT NECK SOFT TISS W/CONTRAST EXAM: CT Neck With IV Contrast. CLINICAL HISTORY: Cervical lymphadenopathy. TECHNIQUE: Contiguous axial images obtained through the neck with contrast. Reconstructed imaging. Reformatted/MPR images were performed. CT scan done according to ALARA (As Low as Reasonably Achievable). COMPARISON: Ultrasound dated October 30, 2024. FINDINGS: Included intracranial substances, orbits, and paranasal sinuses are grossly unremarkable. Nasopharynx, oropharynx, oral cavity, hypopharynx, and larynx are grossly unremarkable. Parotid, submandibular, and thyroid glands are grossly unremarkable. There are sub-centimeter lymph nodes at level IB and II on both sides of the neck, the largest measuring approximately 1.1 x 0.7 cm on the right side. No calcification or necrosis within the nodes. Visualized, included lung apices are grossly clear. No acute osseous abnormality detected. IMPRESSION: 1. Few prominent bilateral upper cervical lymph nodes without necrosis or calcification are likely reactive. Suggested clinical and lab correlation. Compared to the previous ultrasound dated October 30, 2024, no significant interval change. /[place] DICTATED BY: CHAD LILLY MD DATE: 11/02/241531 ELECTRONICALLY SIGNED BY: CHAD LILLY MD DATE: 11/02/241531 [place] [address] [place] [id number] IMAGING REPORT Signed PATIENT: ENRIQUE NUÑEZ MR#: [id number] : 1965 SEX: F AGE: 59 LOCATION: [facility] ORDER 1055 STATUS: ADM IN REPORT#: [id number] SERVICE 1040 REASON: probable Liver parenchymal disease as per CT Abd ORDERING PHYSICIAN: PASCUAL MCDOWELL MD PROCEDURE: ABDRUQLTD - US ABDOMINAL RUQ\\LTD EXAMINATION: ULTRASOUND OF THE ABDOMEN (LIMITED) WITH COLOR DOPPLER. CLINICAL HISTORY: Probable liver parenchymal disease on CT. COMPARISON: CT of the abdomen and pelvis with contrast dated 10/30/2024. TECHNIQUE: Real-time grayscale ultrasound images of the abdomen. In addition, color Doppler is medically necessary to perform in order to evaluate vascularity and blood flow. FINDINGS: Liver: Normal in caliber. There is normal echogenicity of the hepatic parenchyma. There is no focal hepatic abnormality or intrahepatic biliary ductal dilatation. The main portal vein is not well visualized. The right lobe is partially visualized. Gallbladder: Post cholecystectomy status. Common bile duct is normal in caliber, measuring 0.34 cm. Pancreas: Normal in caliber and echotexture. No calcification or dilated pancreatic duct. The right kidney is normal in caliber, the right kidney measures 12.3 x 5.1 x 5.2 cm in its craniocaudal, AP, and transverse dimensions respectively. There is normal renal cortical thickness, and cortical echogenicity. There is no renal calculus or hydronephrosis. IMPRESSION: Post cholecystectomy status. No other significant abnormality. /[place] DICTATED BY: CHAD LILLY MD DATE: 11/02/24713 ELECTRONICALLY SIGNED BY: CHAD LILLY MD DATE: 11/02/24713 Assessment/Plan: ASSESSMENT: Severe hypokalemia, POA Sepsis, POA Acute cystitis POA Chronic Diarrhea Hypothyroidism Severe Protein calorie malnutrition, POA Discharge Instructions: You were admitted with sepsis, chronic watery diarrhea, and life-threatening low potassium (hypokalemia). Your infection and potassium levels were stabilized during your hospital stay, and you are ready for discharge. You will continue treatment at home with potassium supplements and antibiotics, take these exactly as prescribed and do not skip doses. It is very important to follow up with both an infectious disease specialist and drain layer to evaluate the cause of your chronic diarrhea and guide further treatment. Drink plenty of fluids with electrolytes and follow any dietary recommendations provided. Seek medical attention immediately if you develop severe diarrhea, vomiting, weakness, confusion, chest pain, palpitations, dizziness, or if your symptoms suddenly worsen. Please keep all follow up appointments to ensure your recovery and long-term management. Follow up with your primary care physician within 3-5 days. Follow up with Infectious diseases and Gastroenterology within 2 weeks. Home Medications: Active Scripts Benzonatate (Tessalon Perles) 100 Mg Cap, 1 CAP PO TID for cough, #12 CAP 0 Refills Prov:CARLOS DUKES NP 08/29/24 Reported Medications Levothyroxine Sodium (Synthroid 100 Mcg Tab) 100 Mcg Tablet, 1 TAB PO DAILY for 30 Days, #30 TAB 0 Refills 10/30/24 Potassium Gluconate (Potassium) 595 Mg (99 Mg) Tablet, 99 MG PO DAILY, TAB 01/19/23 Discontinued Scripts Potassium Chloride (Potassium Chloride) 20 Meq Tab.er.prt, 1 TAB PO BID for 3 Days, #6 TAB 0 Refills Prov:CARLOS DUKES INTERNAL AUDIT SENIOR MANAGER 08/29/24 Nirmatrelvir/Ritonavir (Paxlovid 300-100 mg Dose Pack) 300 Mg (150 Mg X 2)-100 Mg Tab.ds.pk, 1 EACH PO DAILY for 5 Days, #5 TAB 0 Refills Prov:CARLOS DUKES INTERNAL AUDIT SENIOR MANAGER 08/29/24 New Medications: Potassium Chloride (Potassium Chloride) 20 Meq Tab.er.prt 1 TAB PO DAILY for 30 Days, #30 TAB 0 Refills [Diphenoxylate Hcl/Atropine] () 1 TAB TABLET 1 TAB PO DAILY PRN for DIARRHEA, #30 0 Refills Continued Medications: Levothyroxine Sodium (Synthroid 100 Mcg Tab) 100 Mcg Tablet 1 TAB PO DAILY for 30 Days, #30 TAB 0 Refills Discontinued Medications: Benzonatate (Tessalon Perles) 100 Mg Cap 1 CAP PO TID for cough, #12 CAP 0 Refills Potassium Gluconate (Potassium) 595 Mg (99 Mg) Tablet 99 MG PO DAILY, TAB Time spent arranging discharge: 1-30 minutes ATTESTATION BY PHYSICIAN I have seen and examined the patient. I reviewed the documentation, medical decision making, and treatment plan as noted by the resident provider above. I agree with the findings and plan of care. Ezra Veronica MD, HEMA MD Nov 03, 2024 16:54
--- NOTE | 2024-11-03 18:32 | NUR ---
Discharge patient been discharge home, all discharge instructions given to patients, all questions answered, no concerns at this time, in good spirit, prescription written by Dr. Cox provided, aware needs to follow up with PCP, Dr. Cox, Dr. Orozco, family at bedside.
--- NOTE | 2024-11-03 18:37 | NUR ---
Discharge Patient walked downstairs with RN, accompanied by her family.
[2024-11-04] MEDS ORDERED: DIPHENOXYLATE HCL/ATROPINE 2.5/0.025 MG TAB PO SCH (09:00)
== END 2024-11-03 18:36 | disposition home or self-care (01) | DRG 871 ==
LOC: EDH 00:44 → EDHIP 03:43 → 2BH 05:13 → 2DH 11-01 17:14 → 3AH 11-03 12:25
PROVIDERS: ADMIT Internal Medicine; ATTEND Internal Medicine
DX: A41.9 Sepsis, unspecified organism (principal); E43 Unspecified severe protein-calorie malnutrition; E87.20 Acidosis, unspecified; N30.00 Acute cystitis without hematuria; J98.11 Atelectasis; E03.9 Hypothyroidism, unspecified; Z96.653 Presence of artificial knee joint, bilateral; D69.6 Thrombocytopenia, unspecified; Z20.822 Contact with and (suspected) exposure to COVID-19; E11.9 Type 2 diabetes mellitus without complications; E87.6 Hypokalemia; I25.10 Atherosclerotic heart disease of native coronary artery without angina pectoris; K52.9 Noninfective gastroenteritis and colitis, unspecified; Z51.5 Encounter for palliative care; Z79.899 Other long term (current) drug therapy; Z68.24 Body mass index [BMI] 24.0-24.9, adult
CPT/HCPCS: 36415; 45380; 70491; 71045; 71250; 74177; 76536; 76705; 80048; 80053; 80074; 81001; 82270; 82308; 82436; 82550; 82570; 82607; 82728; 83036; 83605; 83630; 83735; 84100; 84132; 84133; 84145; 84443; 85025; 86140; 86359; 86361; 86701; 87015; 87040; 87086; 87328; 87338; 87389; 87390; 87426; 87507; 87536; 87798; 87804; 87880; 88305; 92610; 93005; 96360; 99291; G0378; J1650; J2543; J2704; J3475; J3480; J3490; J7120; Q9967; A4215; A4222; A4223; A4620